=== PATIENT | female | born 1985 | race Hispanic/Latino ===

== ENCOUNTER 2021-08-25 13:13 | Emergency (ER) | payer OTHER, SELFPAY ==
[2021-08-25 13:20] VITALS: BP 153/102; PULSE 71; RESP 16; TEMP 36.8; O2SAT 100
[2021-08-25] MEDS: SODIUM CHLORIDE 0.9% IV 1,000 ML 999 ML (13:28)
[2021-08-25] MEDS: ONDANSETRON INJ 4 MG/2 ML VIAL (13:28)
--- NOTE | 2021-08-25 13:29 | ED.NAVMDI ---
HPI - Nausea/Vomiting/Diarrhea General Chief complaint: Nausea/Vomiting/Diarrhea Stated complaint: food poisioning??? Time Seen by Provider: 08/25/21 13:19 Source: patient Mode of arrival: ambulatory Limitations: no limitations History of Present Illness HPI Narrative: Patient is a 36-year-old complaining of nausea vomiting, nonbilious nonbloody, previously ingested food, accompanied by epigastric discomfort started today. Patient states that I ate fish and it didn't sit too well . Patient denies any chest pain, shortness of breath, diarrhea, fever or chills. Related Data Home Medications Medication Instructions Recorded Confirmed No Home Medications 08/25/21 08/25/21 Allergies Allergy/AdvReac Type Severity Reaction Status Date / Time No Known Allergies Allergy Verified 08/25/21 13:22 Review of Systems Review of Systems: All systems reviewed & are unremarkable except as noted in HPI and below Constitutional: Constitutional: Denies body ache(s), Denies chills, Denies excessive sweating, Denies fatigue, Denies fever(s), Denies headache(s), Denies lethargy, Denies malaise, Denies weakness and Denies weight loss Eyes: Eyes: Denies blurry vision, Denies change in vision and Denies loss of vision ENT: Denies dizziness, Denies ear discharge, Denies headache(s), Denies lip swelling, Denies epistaxis, Denies nasal congestion, Denies neck pain, Denies throat swelling and Denies tongue swelling Cardiovascular: Cardiovascular: Denies chest pain, Denies chest pain at rest, Denies chest pain with activity, Denies diaphoresis, Denies rapid heart rate, Denies edema, Denies irregular heart rhythm, Denies lightheadedness, Denies palpitations, Denies dyspnea and Denies dyspnea on exertion Respiratory: Respiratory: Denies chest congestion, Denies cough, Denies hemoptysis, Denies dyspnea and Denies dyspnea on exertion Gastrointestinal: Gastrointestinal: Denies abdominal pain, Denies melena, Denies hematochezia, Denies diarrhea and Denies hematemesis Musculoskeletal: Musculoskeletal: Denies abnormal gait, Denies deformity, Denies joint swelling, Denies limited range of motion, Denies neck pain and Denies numbness Neurologic: Denies Abnormal speech present, Denies abnormal gait, Denies confusion, Denies dizziness, Denies headache(s), Denies focal weakness, Denies loss of vision, Denies numbness, Denies Other visual disturbances, Denies Sensory deficit (Neuro) and Denies weakness Psychiatric: Psychiatric: Denies confusion, Denies depression, Denies auditory hallucinations, Denies homicidal ideation and Denies suicidal ideation Endocrine: Endocrine: Denies cold intolerance, Denies excessive sweating, Denies fatigue, Denies heat intolerance and Denies palpitations Hematologic/Lymphatic: Hematologic/Lymphatic: Denies easy bleeding and Denies easy bruising Allergic/Immunologic: Allergic/Immunologic: Denies lip swelling, Denies throat swelling and Denies tongue swelling PMFSH Comments Past medical history: None Family history: Hypertension Social history: Smoker, no EtOH or drug use Exam Const: General: cooperative, healthy appearing, comfortable, no acute distress, well developed, alert and awake; No confusion Orientation/consciousness: oriented to person, oriented to place, oriented to time, patient oriented x3 and No confusion Limitations: no limitations HENMT: Head: normal to inspection, normocephalic and atraumatic Ears: hearing grossly normal bilaterally, TM normal on the right and TM normal on the left General nose exam: Normal external nose present, Normal nares present and No nasal discharge present Face and sinus: normal facial exam Mouth: Yes Normal oral and palatal mucosa present, Yes lip normal, Yes tongue normal and Yes oropharynx normal Throat: posterior oropharynx normal, tonsils normal and uvula midline Eyes: General: appearance normal, both eyes and all related structures Pupils: Equal, round and reactive pupils present
[2021-08-25 13:45] LABS: Basophils Percent Auto 0.4 % (0.2-1.2); Eosinophils Absolute Auto 0.1 K/mm3 (0-0.3); Eosinophils Percent Auto 0.8 % (0-4.4); Hematocrit 46.5 % (37.0-47.0); Hemoglobin 15.4 g/dL (12.0-15.0); Immature Granulocyte Absolute 0.02 K/mm3 (0.00-0.031); Immature Granulocyte Percent A 0.3 % (0-0.5); Lymphocytes Absolute Auto 2.32 K/mm3 (0.9-3.2); Lymphocytes Percent Auto 31.3 % (18.3-44.2); Mean Corpuscular HGB Conc 33.1 g/dl (32-36); Mean Corpuscular Volume 96.7 fl (80-100); Monocytes Absolute Auto 0.5 K/mm3 (0.1-0.6); Monocytes Percent Auto 6.3 % (2.6-8.5); Neutrophils Absolute Auto 4.5 K/mm3 (1.3-6.7); Neutrophils Percent Auto 60.9 % (45.5-73.1); Platelet Count Result 371 k/mm3 (150-375); Red Blood Count 4.81 M/mm3 (4.2-5.4); Red Cell Distribution Width 11.9 % (11.5-14.5); White Blood Count 7.4 K/mm3 (4.5-10.0)
[2021-08-25] MEDS: PANTOPRAZOLE SODIUM IV 40 MG VIAL IV PUSH (13:48)
[2021-08-25 13:59] LABS: Alanine Aminotransferase 37 U/L (4-35); Albumin Level 4.4 g/dL (3.5-5.1); Alkaline Phosphatase 63 U/L (38-126); Anion Gap 10 mmol/L (8-16); Aspartate Amino Transferase 32 U/L (14-36); Bilirubin,Total 1.1 mg/dL (0.2-1.3); Blood Urea Nitrogen 12 mg/dL (7-17); Calcium 8.9 mg/dL (8.4-10.2); Carbon Dioxide 25 mmol/L (22-30); Chloride 106 mmol/L (98-107); Estimated CRCL calculation 87 ml/min; Estimated Glomerular Filt Rate > 60; Glucose 89 mg/dL (65-110); Potassium 3.7 mmol/L (3.4-5.0); Sodium 141 mmol/L (137-145)
[2021-08-25] MEDS: SODIUM CHLORIDE 0.9% IV 1,000 ML 999 ML IV CONT (14:29)
[2021-08-25] MEDS: PROMETHAZINE HCL 25 MG/ML AMPUL 12.5 MG IV PUSH (14:29)
[2021-08-25 15:25] VITALS: BP 142/84; PULSE 89; RESP 16; O2SAT 99
--- NOTE | 2021-08-25 15:26 | PC.NURSE ---
pt asked to leave, stated that she felt improved. pt asked for iv to be removed. provider made aware
--- NOTE | 2021-08-25 15:45 | PC.NURSE ---
pt left out via [facility], pt did have iv removed. pt did not want to wait any longer, stated that she peters to be at work by 1600. provider made aware
[2021-08-25 15:58] LABS: Lipase 64 U/L (23-300)
== END 2021-08-25 15:50 | disposition left against medical advice (07) ==
PROVIDERS: Emergency Provider Emergency Medicine
DX: R11.2 Nausea with vomiting, unspecified (principal)
CPT/HCPCS: 36415; 80053; 83690; 85025; 96361; 96374; 96375; 99284; C9113; J2405; J2550; J7030

== ENCOUNTER 2021-09-20 10:30 | Emergency (ER) | payer OTHER, SELFPAY ==
[2021-09-20 10:32] VITALS: BP 133/75; PULSE 66; RESP 14; TEMP 36.3; O2SAT 100
--- NOTE | 2021-09-20 11:23 | ED.NAVMDI ---
HPI - Nausea/Vomiting/Diarrhea General Chief complaint: Nausea/Vomiting/Diarrhea Stated complaint: vomiting Time Seen by Provider: 09/20/21 11:16 Source: patient and family Mode of arrival: ambulatory Limitations: no limitations History of Present Illness HPI Narrative: This is a 36-year-old female that presents to the emergency department for nausea and vomiting since this morning. Does report that she had drank alcohol last night. Reports a similar episode about a month ago for which she was seen here. Denies fever, abdominal pain, diarrhea, or dysuria. Related Data Home Medications Medication Instructions Recorded Confirmed No Home Medications 08/25/21 08/25/21 Allergies Allergy/AdvReac Type Severity Reaction Status Date / Time No Known Allergies Allergy Verified 09/20/21 11:13 Review of Systems Review of Systems: CONSTITUTIONAL: Denies fever GASTROINTESTINAL: Reports nausea, vomiting GENITOURINARY: Denies dysuria All systems reviewed & are unremarkable except as noted in HPI and below PMFSH Past Medical History Medical History (Updated 09/20/21 @ 15:10 by Sierra Florez PA-C) No active medical problems Social History Social History (Updated 09/20/21 @ 11:25 by Sierra Florez PA-C) Alcohol intake: current Substance use: never Exam Narrative: GENERAL: Well-nourished, actively vomiting HEAD: Normocephalic, atraumatic. EYES: EOMI. CHEST: Clear to auscultation. No respiratory distress. No wheezes rales or rhonchi HEART: Regular rate and rhythm. No murmur heard. Normal peripheral pulses. ABDOMEN: Soft, nontender, nondistended, normal active bowel sounds. EXTREMITIES: Normal range of motion. No edema. SKIN: Warm, dry, no rash. NEURO: No focal deficits. Alert and oriented x3. PSYCH: Normal mood and affect Course Vital Signs Vital signs: Vital Signs Temperature 97.3 F L 09/20/21 10:32 Pulse Rate 66 09/20/21 10:32 Respiratory Rate 14 09/20/21 10:32 Blood Pressure 133/75 09/20/21 10:32 Pulse Oximetry 100 09/20/21 10:32 Temperature 97.3 F L 09/20/21 10:32 Pulse Rate 72 09/20/21 13:24 Respiratory Rate 20 09/20/21 13:24 Blood Pressure 116/66 09/20/21 13:24 Pulse Oximetry 100 09/20/21 13:24 MDM - Nausea/Vomiting/Diarrhea MDM Narrative Medical decision making narrative: Patient presents to the emergency department for nausea and vomiting ongoing since this morning. She denies any abdominal pain. Her vitals are stable. She is afebrile and nontoxic-appearing. CBC is without leukocytosis. Does show hemoconcentration with hemoglobin of 15.9. Metabolic panel shows mild transaminitis. Lipase is normal. UA with red blood cells, no leukoesterase, nitrates or WBCs. Patient refused CT scan of the abdomen and pelvis. She was hydrated and given antiemetics with improvement. She left after being seen by myself and before any further evaluation or management Lab Data Attestation: I reviewed the patient's lab results. Result diagrams: 09/20/21 11:42 09/20/21 11:42 Labs: Lab Results 09/20/21 09/20/21 09/20/21 Range/Units 11:42 11:42 11:42 WBC 6.9 (4.5-10.0) K/mm3 RBC 4.91 (4.2-5.4) M/mm3 Hgb 15.9 H (12.0-15.0) g/dL Hct 46.4 (37.0-47.0) % MCV 94.5 (80-100) fl MCH 32.4 (26-34) pg MCHC 34.3 (32-36) g/dl RDW 11.9 (11.5-14.5) % Plt Count 368 (150-375) k/mm3 MPV 9.2 (7.4-10.4) fl Immature Gran % (Auto) 0.3 (0-0.5) % Neut % (Auto) 64.5 (45.5-73.1) % Lymph % (Auto) 27.6 (18.3-44.2) % [place] % (Auto) 6.7 (2.6-8.5) % Eos % (Auto) 0.6 (0-4.4) % Baso % (Auto) 0.3 (0.2-1.2) % Lymph # (Auto) 1.90 (0.9-3.2) K/mm3 [place] # (Auto) 0.5 (0.1-0.6) K/mm3 Eos # (Auto) 0.0 (0-0.3) K/mm3 Baso # (Auto) 0.0 (0.0-0.1) K/mm3 Abs Immat Gran (auto) 0.02 (0.00-0.031) K/mm3 Absolute Neuts (auto) 4.4 (1.3-6.7) K/mm3 Absolute Nucleated RBC 0.0 (0
[2021-09-20] MEDS: SODIUM CHLORIDE 0.9% IV 1,000 ML 999 ML IV CONT (11:35)
[2021-09-20] MEDS: FAMOTIDINE 20 MG/2 ML VIAL IV PUSH (11:35)
[2021-09-20] MEDS: PROMETHAZINE HCL 25 MG/ML AMPUL 12.5 MG IV PUSH (11:35)
--- NOTE | 2021-09-20 11:37 | PC.NURSE ---
pt refused orthostatic vs at this time
[2021-09-20 11:51] LABS: Basophils Percent Auto 0.3 % (0.2-1.2); Eosinophils Percent Auto 0.6 % (0-4.4); Hematocrit 46.4 % (37.0-47.0); Hemoglobin 15.9 g/dL (12.0-15.0); Immature Granulocyte Absolute 0.02 K/mm3 (0.00-0.031); Immature Granulocyte Percent A 0.3 % (0-0.5); Lymphocytes Percent Auto 27.6 % (18.3-44.2); Mean Corpuscular HGB Conc 34.3 g/dl (32-36); Mean Corpuscular Hemoglobin 32.4 pg (26-34); Mean Corpuscular Volume 94.5 fl (80-100); Mean Platelet Volume 9.2 fl (7.4-10.4); Monocytes Absolute Auto 0.5 K/mm3 (0.1-0.6); Monocytes Percent Auto 6.7 % (2.6-8.5); Neutrophils Absolute Auto 4.4 K/mm3 (1.3-6.7); Neutrophils Percent Auto 64.5 % (45.5-73.1); Platelet Count Result 368 k/mm3 (150-375); Red Blood Count 4.91 M/mm3 (4.2-5.4); Red Cell Distribution Width 11.9 % (11.5-14.5); White Blood Count 6.9 K/mm3 (4.5-10.0)
[2021-09-20 12:13] LABS: Alanine Aminotransferase 39 U/L (4-35); Albumin Level 4.5 g/dL (3.5-5.1); Alkaline Phosphatase 65 U/L (38-126); Anion Gap 8 mmol/L (8-16); Aspartate Amino Transferase 37 U/L (14-36); Bilirubin,Total 0.8 mg/dL (0.2-1.3); Blood Urea Nitrogen 12 mg/dL (7-17); Carbon Dioxide 24 mmol/L (22-30); Chloride 106 mmol/L (98-107); Estimated CRCL calculation 100 ml/min; Estimated Glomerular Filt Rate > 60; Ethanol 17 mg/dL (<10); Glucose 94 mg/dL (65-110); Lipase 109 U/L (23-300); Potassium 3.9 mmol/L (3.4-5.0); Sodium 138 mmol/L (137-145)
[2021-09-20] MEDS: PROCHLORPERAZINE EDISYLATE 10 MG/2 ML VIAL IV PUSH (13:23)
[2021-09-20] MEDS: diphenhydrAMINE HCl INJ 50 MG/ML VIAL 25 MG IV PUSH (13:23)
[2021-09-20 13:24] VITALS: BP 116/66; PULSE 72; RESP 20; O2SAT 100
--- NOTE | 2021-09-20 13:55 | PC.NURSE ---
pt refuses straight cath. pt encouraged to try to urinate. less nausea/emesis after 2nd round of meds.
[2021-09-20 14:38] LABS: Add Urine Microscopic? YES; Appearance Urine Cloudy (Clear); Bilirubin Urine Negative (Negative); Blood Urine 3+ (Negative); Color Urine Yellow (Yellow); Glucose Urine UA Negative (Negative); Ketones Urine Negative (Negative); Leukocyte Esterase Ur Negative LEU/UL (Negative); Mucus Urine Rare /lpf; Nitrate Urine Negative (Negative); Protein Urine 1+ mg/dL (Negative); RBC Urine >75 /hpf (0-2); Specific Grav Ur 1.027 (1.001-1.035); Squamous Epithelial Cell Urine Many /hpf (Few); Urobilinogen Urine Negative mg/dL (<2.0); WBC Urine 0-3 /hpf
--- NOTE | 2021-09-20 15:07 | PC.NURSE ---
pt walks by desk showing rn that she removed her iv cath herself. pt got drsg supplies out of room 22 drawer and applied a drsg. pt informed that provider has been notified that she wishes to be d/c home. pt and her visitor do not wish to wait to speak to provider. pt eloped out ed entrance at this time.
--- NOTE | 2021-09-20 15:07 | PC.NURSE ---
pt left ama. provider aware. iv d/c intact by pt. no n/v per pt
== END 2021-09-20 15:07 | disposition left against medical advice (07) ==
PROVIDERS: Physician Assistant; Emergency Provider Emergency Medicine
DX: R11.2 Nausea with vomiting, unspecified (principal)
CPT/HCPCS: 36415; 80053; 80307; 81001; 81025; 83690; 85025; 96361; 96374; 96375; 99284; J0780; J1200; J2550; J7030

== ENCOUNTER 2021-11-23 03:08 | Emergency (ER) | payer OTHER, SELFPAY ==
[2021-11-23 03:21] VITALS: BP 147/122; PULSE 92; RESP 22; TEMP 35.9; O2SAT 100
--- NOTE | 2021-11-23 03:27 | ED.NAVMDI ---
HPI - Nausea/Vomiting/Diarrhea General Chief complaint: Nausea/Vomiting/Diarrhea Stated complaint: n/v, covid negative yesterday Time Seen by Provider: 11/23/21 03:13 Source: RN notes reviewed History of Present Illness HPI Narrative: Patient presents emergency department from home for nausea and vomiting. History is per family the patient patient gone out drinking this evening for the past 3 hours she has been having numerous episodes of nausea vomiting as well as abdominal pain throughout the abdomen described as cramping and diffuse. Patient been feeling fine prior to this no fevers or chills chest pain or shortness of breath patient not taking medication at home for the symptoms Related Data Home Medications Medication Instructions Recorded Confirmed No Home Medications 08/25/21 08/25/21 Allergies Allergy/AdvReac Type Severity Reaction Status Date / Time No Known Allergies Allergy Verified 09/20/21 11:13 Review of Systems Review of Systems: Gen.: Denies fevers or chills ENT: Denies congestion Respiratory: Denies shortness of breath or cough CV: Denies chest pain or palpitations GI: See HPI denies burning, urgency, frequency or hematuria Musculoskeletal: Denies back pain or muscle pain Neuro: Denies numbness, tingling, weakness or focal weakness Skin: Denies rash Except as documented, all other systems reviewed and negative PMFSH Past Medical History Medical History No active medical problems Social History Social History Alcohol intake: current Substance use: never Exam Narrative: APPEARANCE: No acute distress, nontoxic, resting in bed HEENT: Normocephalic, atraumatic, OMM RESPIRATORY: No respiratory distress, clear to auscultation bilaterally with no rhonchi wheezing or rales CARDIOVASCULAR: RRR s murmur ABDOMINAL: Soft nondistended diffusely tender palpation no rebound or guarding MUSCULOSKELETAl: Moves all extremities. No clubbing, cyanosis or edema. NEURO: Awake and alert. Following commands, speech normal, no focal deficits SKIN:: Warm, dry. Normal Color PSYCHIATRIC: Normal affect/mood Course Course Emergency Course: Reviewed old records patient's been seen twice before for similar episodes following alcohol ingestion Awaiting UA and bedside from patient patient is up in room stating that she is ready to leave discussed with patient and complete evaluation she states that everything is fine she is feeling better and she wishes to leave at this time. Patient has chosen to refuse further care. Risks of an incomplete evaluation and treatment were discussed with the patient including potential for intra-abdominal infection or permanent disability were discussed with the patient seems to understand these risks but still desires to refuse further care. Patient recommended to follow up with her primary care physician in the next possible interval, specifically they?re told they can return to the ED at any time to resume care. AMA paperwork was filled out signed by patient Vital Signs Vital signs: Vital Signs Temperature 96.7 F L 11/23/21 03:21 Pulse Rate 92 11/23/21 03:21 Respiratory Rate 22 H 11/23/21 03:21 Blood Pressure 147/122 H 11/23/21 03:21 Pulse Oximetry 100 11/23/21 03:21 Temperature 96.7 F L 11/23/21 03:21 Pulse Rate 70 11/23/21 04:59 Respiratory Rate 16 11/23/21 04:59 Blood Pressure 111/69 11/23/21 04:59 Pulse Oximetry 100 11/23/21 04:59 MDM - Nausea/Vomiting/Diarrhea Lab Data Result diagrams: 11/23/21 04:38 11/23/21 04:38 Labs: Lab Results 11/23/21 11/23/21 Range/Units 04:38 04:38 WBC 7.5 (4.5-10.0) K/mm3 RBC 4.55 (4.2-5.4) M/mm3 Hgb 14.4 (12.0-15.0) g/dL Hct 42.1 (37.0-47.0) % MCV 92.5 (80-100) fl MCH 31.6 (26-34) pg MCHC 34.2 (32-36) g/dl RDW 11
[2021-11-23] MEDS: ONDANSETRON HCL ODT 4 MG TABLET PO (03:59)
[2021-11-23] MEDS: SODIUM CHLORIDE 0.9% IV 1,000 ML 999 ML IV CONT (04:18)
[2021-11-23] MEDS: FAMOTIDINE 20 MG/2 ML VIAL IV PUSH (04:18)
[2021-11-23] MEDS: KETOROLAC 30 MG/ML VIAL (*BKC) IV PUSH (04:18)
[2021-11-23 04:48] LABS: Basophils Percent Auto 0.4 % (0.2-1.2); Eosinophils Absolute Auto 0.1 K/mm3 (0-0.3); Eosinophils Percent Auto 1.1 % (0-4.4); Hematocrit 42.1 % (37.0-47.0); Hemoglobin 14.4 g/dL (12.0-15.0); Immature Granulocyte Absolute 0.02 K/mm3 (0.00-0.031); Immature Granulocyte Percent A 0.3 % (0-0.5); Lymphocytes Absolute Auto 2.42 K/mm3 (0.9-3.2); Lymphocytes Percent Auto 32.3 % (18.3-44.2); Mean Corpuscular HGB Conc 34.2 g/dl (32-36); Mean Corpuscular Hemoglobin 31.6 pg (26-34); Mean Corpuscular Volume 92.5 fl (80-100); Mean Platelet Volume 8.9 fl (7.4-10.4); Monocytes Absolute Auto 0.6 K/mm3 (0.1-0.6); Monocytes Percent Auto 7.5 % (2.6-8.5); Neutrophils Absolute Auto 4.4 K/mm3 (1.3-6.7); Neutrophils Percent Auto 58.4 % (45.5-73.1); Platelet Count Result 436 k/mm3 (150-375); Red Blood Count 4.55 M/mm3 (4.2-5.4); Red Cell Distribution Width 11.9 % (11.5-14.5); White Blood Count 7.5 K/mm3 (4.5-10.0)
[2021-11-23 04:59] VITALS: BP 111/69; PULSE 70; RESP 16; O2SAT 100
[2021-11-23 05:10] LABS: Alanine Aminotransferase 41 U/L (4-35); Alkaline Phosphatase 71 U/L (38-126); Anion Gap 11 mmol/L (8-16); Aspartate Amino Transferase 39 U/L (14-36); Bilirubin,Total 0.5 mg/dL (0.2-1.3); Blood Urea Nitrogen 8 mg/dL (7-17); Calcium 8.7 mg/dL (8.4-10.2); Carbon Dioxide 23 mmol/L (22-30); Chloride 108 mmol/L (98-107); Estimated Glomerular Filt Rate > 60; Glucose 94 mg/dL (65-110); Lipase 104 U/L (23-300); Potassium 3.3 mmol/L (3.4-5.0); Sodium 142 mmol/L (137-145)
--- NOTE | 2021-11-23 05:48 | PC.NURSE ---
artificial breeding technician went in to pt room to try to obtain a urine sample and the pt states that she is ready to leave. Pt informed of risks of leaving by EDP Dr. Colon and still wants to leave. IV removed by this RN. Pt signs AMA paperwork
== END 2021-11-23 05:50 | disposition left against medical advice (07) ==
PROVIDERS: Emergency Provider Emergency Medicine
DX: R11.2 Nausea with vomiting, unspecified (principal); R10.9 Unspecified abdominal pain
CPT/HCPCS: 36415; 80053; 83690; 85025; 96361; 96374; 96375; 99284; A9270; J1885; J7030

== ENCOUNTER 2022-06-28 17:49 | Emergency (ER) | payer OTHER, SELFPAY ==
[2022-06-28 18:00] VITALS: BP 131/76; PULSE 87; RESP 16; TEMP 36.7; O2SAT 99
--- NOTE | 2022-06-28 19:37 | ED.GENADULT ---
HPI - General Adult General Chief complaint: Upper Respiratory Infection Stated complaint: tonsil swelling Time Seen by Provider: 06/28/22 18:37 History of Present Illness HPI narrative: 36-year-old female presented the emergency department for evaluation of a sore throat that has been persistent for approximately last 6 hours. Patient states that she noticed a white exudate on her right tonsil and states that her right tonsil hurts worse than the left. Patient denies any cough or shortness of breath. Patient denies any suspected exposure to COVID. Related Data Allergies Allergy/AdvReac Type Severity Reaction Status Date / Time No Known Allergies Allergy Verified 06/28/22 18:12 Review of Systems Review of Systems: CONSTITUTIONAL: Denies fever, chills, or sweats. EYES: Denies visual changes, redness, or discharge. ENT: Sore throat CARDIOVASCULAR: Denies chest pain, palpitations, or edema. RESPIRATORY: Denies cough or dyspnea. GASTROINTESTINAL: Denies abdominal pain, nausea, vomiting, or diarrhea. GENITOURINARY: Denies dysuria or hematuria. SKIN: Denies rash or itching. MUSCULOSKELETAL: Denies back pain, joint pain, or myalgia. NEUROLOGIC: Denies headache, numbness, or weakness. PMFSH Past Medical History Medical History No active medical problems Social History Social History Alcohol intake: current Substance use: never Exam Narrative: APPEARANCE: Well appearing, no pain, no distress, well-nourished. HEAD: normocephalic, atraumatic. EYES: PERRLA/EOMI, conjunctivae clear. NOSE: Normal no drainage EARS:TMS clear with good light reflex. THROAT: Pharynx clear, swollen tonsils bilaterally NECK: Supple. No adenopathy, no masses. RESPIRATORY: Airway patent, respirations nonlabored. Clear to auscultation bilaterally, no rales, rhonchi, wheezing. CARDIOVASCULAR: Regular rate and rhythm without murmurs rubs or gallops. MUSCULOSKELETAL: Moves all extremities. Strength/ROM intact, No edema, No calf tenderness. NEURO: Alert. Cranial nerves II through XII intact. Grossly intact SKIN: Warm, dry. Normal Color Course Course Emergency Course: Patient was treated for tonsillitis. Patient was started on Augmentin in the emergency department. All question concerns were addressed. Patient was comfortable with the plan for discharge and close follow-up. Vital Signs Vital signs: Vital Signs Temperature 98.0 F 06/28/22 18:00 Pulse Rate 87 06/28/22 18:00 Respiratory Rate 16 06/28/22 18:00 Blood Pressure 131/76 06/28/22 18:00 Pulse Oximetry 99 06/28/22 18:00 Oxygen Delivery Room Air 06/28/22 18:00 Temperature 98.0 F 06/28/22 18:00 Pulse Rate 87 06/28/22 18:00 Respiratory Rate 16 06/28/22 18:00 Blood Pressure 131/76 06/28/22 18:00 Pulse Oximetry 99 06/28/22 18:00 Oxygen Delivery Room Air 06/28/22 18:10 Medical Decision Making Vital Signs Vital Signs: Vital Signs Temperature 98.0 F 06/28/22 18:00 Pulse Rate 87 06/28/22 18:00 Respiratory Rate 16 06/28/22 18:00 Blood Pressure 131/76 06/28/22 18:00 Pulse Oximetry 99 06/28/22 18:00 Oxygen Delivery Room Air 06/28/22 18:00 Temperature 98.0 F 06/28/22 18:00 Pulse Rate 87 06/28/22 18:00 Respiratory Rate 16 06/28/22 18:00 Blood Pressure 131/76 06/28/22 18:00 Pulse Oximetry 99 06/28/22 18:00 Oxygen Delivery Room Air 06/28/22 18:10 Lab Data Lab results reviewed: Yes I reviewed the patient's lab results. Labs: Strep Screen Positive Group A Strep *(Reference Range: Negative)* Discharge Plan Discharge Clinical Impression: Acute tonsillitis Patient Disposition: Home, Self-Care Condition: Stable Instructions: Antibiotic Form, Tonsillitis (ED) Additional Instructions: Antibiotic as directed until completed.
[2022-06-28] MEDS: AMOXICILLIN/CLAVULANATE K 875-125 MG TAB 1 TABLET PO (20:05)
== END 2022-06-28 20:08 | disposition home or self-care (01) ==
PROVIDERS: Emergency Provider Emergency Medicine
DX: J03.00 Acute streptococcal tonsillitis, unspecified (principal)
CPT/HCPCS: 87880; 99283; A9270

== ENCOUNTER 2022-07-11 16:54 | Emergency (ER) | payer OTHER, SELFPAY ==
--- NOTE | ~2022-07-11 | XR_ITS ---
EXAMINATION: XR knee LT 3V DATE: 07/11/2022 17:24 INDICATION: Left knee pain. TECHNIQUE: Anteroposterior, oblique and crosstable lateral views of the left knee were obtained COMPARISON: None. FINDINGS: Internal fixation of an intra-articular fracture of the proximal left tibia with residual linear luce ncy along an oblique sagittally oriented fracture plane extending from the lateral side of the interc ondylar eminence on the medial side of the lateral tibial plateau distally into the proximal diaphysi s. Fractures fixed with a couple interfragmentary screws, a short medial sided plate and screws and a longer lateral sided plate and screws. No instrumentation failure or lucency surrounding the screws to suggest loosening or infection. Alignment appears near-anatomic with approximately 2-3 mm residual lucent fracture gap at the articular side of the fracture plane. No other fractures identified. Smal l triangular ossicle at the lateral margin of the lateral compartment which could represent either a loose bone fragment, degenerative loose body or heterotopic ossicle related to an associated soft tis mamadou injury. Small left knee joint effusion without layering lipohemarthrosis. Joint spaces appear rel atively preserved on nonweightbearing imaging. IMPRESSION: 1. Internally fixed intra-articular fracture proximal left tibia which is in near-anatomic alignment. No acute osseous abnormality appreciated however evaluation is somewhat limited in the absence of a prior imaging to establish a postoperative baseline. 2. Small left knee joint effusion. Reviewed, dictated and finalized at location A. IMPRESSION: 1. Internally fixed intra-articular fracture proximal left tibia which is in ne ar-anatomic alignment. No acute osseous abnormality appreciated however evaluat ion is somewhat limited in the absence of a prior imaging to establish a postop erative baseline. 2. Small left knee joint effusion.
[2022-07-11 16:55] VITALS: BP 129/76; PULSE 81; RESP 20; TEMP 37.2; O2SAT 100
--- NOTE | 2022-07-11 19:10 | PC.NURSE ---
RN in to evaluate pt. Pt no longer in room. Pt not in restroom at this time. RN who this RN took over for states she is unsure where the pt could be at this time. Registration also unable to find pt at this time. Assumed pt left without being seen by provider.
== END 2022-07-11 19:10 | disposition left against medical advice (07) ==
LOC: ANHED 19:38
PROVIDERS: Emergency Provider Emergency Medicine
DX: M25.562 Pain in left knee (principal); S82.102D Unspecified fracture of upper end of left tibia, subsequent encounter for closed fracture with routine healing; X58.XXXD Exposure to other specified factors, subsequent encounter
CPT/HCPCS: 73562; 99199

== ENCOUNTER 2024-02-25 19:32 | Emergency (ER) | payer OTHER, SELFPAY ==
--- NOTE | ~2024-02-25 | XR_ITS ---
EXAMINATION: XR chest 2V DATE: 02/25/2024 21:28 INDICATION: Cough. Shortness of breath. TECHNIQUE: Frontal and lateral views of the chest were obtained. COMPARISON: None. FINDINGS: There is no pneumonia, pleural effusion, or pneumothorax. The heart size is normal. IMPRESSION: 1. No acute cardiopulmonary disease. Reviewed, dictated and finalized at location E.
[2024-02-25 19:36] VITALS: BP 134/93; PULSE 88; RESP 18; TEMP 36.1; O2SAT 99
[2024-02-25 20:26] LABS: Influenza A QL RT-PCR Negative (Negative); Influenza B QL RT-PCR Negative (Negative); RSV RNA, RT-PCR Negative (Negative); SARS-CoV-2 RNA PCR Negative (Negative)
[2024-02-25 20:59] VITALS: O2SAT 98
--- NOTE | 2024-02-25 21:25 | ED.URI ---
HPI - URI/Sore Throat General Chief Complaint: Upper Respiratory Infection Stated Complaint: cough Time Seen by Provider: 02/25/24 21:17 History of Present Illness HPI Narrative: Patient is a healthy transgender female to male here with a cough. Patient note symptoms began around 8 pm last night. He did have a sick contact over the weekend at a family . He notes associated congestion and diarrhea. Patient denies fever or chills. Cough is non productive. He describes an itching sensation in the back of his throat which seems to trigger his cough. He was prescribed an inhaler in the past which has not helped with his cough. Denies history of COPD or asthma, non smoker. Patient denies sore throat, notes his family member hugged him who had strep throat and is very concerned he could have strep throat. Related Data Allergies Allergy/AdvReac Type Severity Reaction Status Date / Time No Known Allergies Allergy Verified 02/25/24 19:33 Review of Systems Review of Systems: All systems reviewed & are unremarkable except as noted in HPI and below PMFSH Past Medical History Medical History No active medical problems Social History Social History Alcohol intake: current Substance use: never Exam Narrative: GENERAL: Well-appearing, well-nourished, and in no acute distress. HEAD: Normocephalic, atraumatic. EYES: PERRLA and EOMI. ENT: Nares clear. Mucous membranes moist. NECK: Supple. CHEST: Clear to auscultation. No wheeze. Coughing throughout exam. No respiratory distress. HEART: Regular rate and rhythm. Normal peripheral pulses. ABDOMEN: Soft, nontender, nondistended. EXTREMITIES: Normal range of motion. No edema. SKIN: Warm, dry, no rash. NEURO: No focal deficits. Alert and oriented x3. PSYCH: Normal mood and affect. Course Course Emergency Course: Chart review performed patient here for non productive cough since yesterday along with nasal congestion. COVID, influenza, RSV negative. Patient seen and evaluated non toxic appearing. Viral swab negative, CXR negative. Believe patient's symptoms are most likely due to viral illness. I repeatedly told the patient that I do not believe that they had strep throat, still requesting to be tested for strep pharyngitis. Will send swab. Strep is positive. I believe this is likely colonization and his symptoms are due to viral illness however given his exposure and his positive test, will start any antibiotics given patient's preoccupation with strep. The results of pertinent diagnostic studies and exam findings were discussed. The patient?s provisional diagnosis and plan of care were discussed with the patient and present family. The patient and/or present family expressed understanding of the diagnosis and plan. The nurse was instructed to provide written instructions and appropriate follow-up information. The patient understands their need and responsibility to obtain additional follow-up as instructed. The risks of medications administered and prescribed were discussed with the patient and family present. Vital Signs Vital signs: Vital Signs Temperature 97.0 F L 02/25/24 19:36 Pulse Rate 88 02/25/24 19:36 Respiratory Rate 18 02/25/24 19:36 Blood Pressure 134/93 H 02/25/24 19:36 Pulse Oximetry 99 02/25/24 19:36 Oxygen Delivery Room Air 02/25/24 19:36 Temperature 97.0 F L 02/25/24 19:36 Pulse Rate 88 02/25/24 19:36 Respiratory Rate 18 02/25/24 19:36 Blood Pressure 134/93 H 02/25/24 19:36 Pulse Oximetry 98 02/25/24 20:59 Oxygen Delivery Room Air 02/25/24 20:59 MDM - URI/Sore Throat Lab Data Labs: Lab Results 02/25/24 02/25/24 Range/Units 19:41 22:00 Influenza A (RT-PCR) Negative (Negative) Influenza B (RT-PCR) Negative (Negative) RSV (RT-PCR) Negative (Negative) SARS-CoV-2 RNA (
[2024-02-25 22:35] LABS: Strep Group A RT-PCR DETECTED (Negative)
[2024-02-25] MEDS: PENICILLIN V POTASSIUM 250 MG TABLET 500 MG PO (22:58)
[2024-02-25] MEDS: dexAMETHasone SOD PHOS INJ 10 MG/ML 1 ML VIAL BY MOUTH (22:59)
[2024-02-25 23:01] VITALS: BP 134/79; PULSE 84; RESP 19; O2SAT 99
== END 2024-02-25 23:02 | disposition home or self-care (01) ==
PROVIDERS: Emergency Medicine; Emergency Provider Student in an Organized Health Care Education/Training Program
DX: J02.0 Streptococcal pharyngitis (principal); Z20.822 Contact with and (suspected) exposure to COVID-19; F64.0 Transsexualism
CPT/HCPCS: 71046; 87637; 87651; 99283; A9270; J1100

== ENCOUNTER 2024-04-20 08:51 | Emergency (ER) | payer OTHER, SELFPAY ==
[2024-04-20 08:53] VITALS: BP 107/77; PULSE 73; RESP 18; TEMP 36.7; O2SAT 98
--- NOTE | 2024-04-20 08:55 | ED.ALLEREA ---
HPI - Allergic Reaction General Chief complaint: Allergic Reaction Stated complaint: allergic reaction Time Seen by Provider: 04/20/24 08:52 History of Present Illness HPI narrative: 38-year-old female presents the emergency room for evaluation rash that began last night. Patient states she is allergic to coconut oil, and used a new hair gel that had coconut oil in it. States in the abrupt onset of a pruritic rash to her scalp left side of her face. Denies any shortness of breath or difficulty breathing. denies sore throat or dysphagia. Related Data Allergies Allergy/AdvReac Type Severity Reaction Status Date / Time No Known Allergies Allergy Verified 04/20/24 08:56 Review of Systems Review of Systems: ROS unremarkable except for stated in HPI PMFSH Past Medical History Medical History No active medical problems Social History Social History Alcohol intake: current Substance use: never Exam Narrative: GENERAL: Well-appearing, well-nourished, no physical limitations, and in no acute distress. HEAD: Normocephalic, atraumatic. EYES: Conjunctivae normal, PERRLA and EOMI. CHEST: Clear to auscultation. No respiratory distress. No wheezes rales or rhonchi. HEART: Regular rate and rhythm. No murmur heard. Normal peripheral pulses. EXTREMITIES: Normal range of motion. No edema. No clubbing or cyanosis SKIN: urticaria noted to scalp and left Side of neck NEURO: No focal deficits. Alert and oriented x3. MAEW. CN's II-XI intact bilaterally, normal gait PSYCH: Cooperative. Normal mood and affect. Course Vital Signs Vital signs: Vital Signs Temperature 36.7 C 04/20/24 08:53 Pulse Rate 73 04/20/24 08:53 Respiratory Rate 18 04/20/24 08:53 Blood Pressure 107/77 04/20/24 08:53 Pulse Oximetry 98 04/20/24 08:53 Oxygen Delivery Room Air 04/20/24 08:53 Temperature 36.7 C 04/20/24 08:53 Pulse Rate 73 04/20/24 08:53 Respiratory Rate 18 04/20/24 08:53 Blood Pressure 107/77 04/20/24 08:53 Pulse Oximetry 98 04/20/24 08:56 Oxygen Delivery Room Air 04/20/24 08:56 Discharge Plan Discharge Clinical Impression: Allergic reaction Patient Disposition: Home, Self-Care Condition: Stable Instructions: Antibiotic Form, General Allergic Reaction (ED) Additional Instructions: who recommend taking a daily antihistamine such as Claritin or Amber. May supplement with Benadryl at night for the itching. Prescriptions: New prednisone 20 mg tablet 40 mg PO DAILY 5 Days Qty: 10 0RF No Action benzonatate 200 mg capsule 200 mg PO TID PRN (Reason: cough) Qty: 20 0RF penicillin V potassium 500 mg tablet 500 mg PO Q12H 10 Days Qty: 20 0RF amoxicillin-pot clavulanate 875-125 mg tablet 1 tablet PO Q12H Qty: 14 0RF Follow-up/Referrals: UNKNOWN,DOCTOR [Primary Care Provider] - Time of Disposition: 08:58
[2024-04-20 08:56] VITALS: O2SAT 98
[2024-04-20] MEDS: diphenhydrAMINE HCl CAP 25 MG CAPSULE PO (09:06)
[2024-04-20] MEDS: dexAMETHasone SOD PHOS INJ 10 MG/ML 1 ML VIAL IM (09:06)
== END 2024-04-20 09:30 | disposition home or self-care (01) ==
LOC: ANHED 09:06
PROVIDERS: Emergency Provider Nurse Practitioner Family
DX: R21 Rash and other nonspecific skin eruption (principal); T49.4X5A Adverse effect of keratolytics, keratoplastics, and other hair treatment drugs and preparations, initial encounter; Z91.018 Allergy to other foods
CPT/HCPCS: 96372; 99283; A9270; J1100

== ENCOUNTER 2024-06-16 08:40 | Emergency (ER) | payer OTHER, SELFPAY ==
--- NOTE | 2024-06-16 08:56 | ED.GENADULT ---
HPI - General Adult General Chief complaint: Nausea/Vomiting/Diarrhea Stated complaint: nausea/vomiting, drank too much Time Seen by Provider: 06/16/24 08:47 History of Present Illness HPI narrative: 38-year-old female presenting to emergency department for evaluation for persistent nausea vomiting. Patient's family states that they typically do not drink but they went out drinking last night and have had persistent nausea and vomiting. Patient denies any associated abdominal pain. Related Data Allergies Allergy/AdvReac Type Severity Reaction Status Date / Time No Known Allergies Allergy Verified 04/20/24 08:56 Review of Systems Review of Systems: All systems reviewed & are unremarkable except as noted in HPI and below PMFSH Past Medical History Medical History No active medical problems Social History Social History Alcohol intake: current Substance use: never Exam Narrative: APPEARANCE: Distressed secondary to nausea HEAD: normocephalic, atraumatic. EYES: PERRLA/EOMI, conjunctivae clear. NOSE: Normal no drainage EARS:TMS clear with good light reflex. THROAT: Pharynx clear, no exudate. NECK: Supple. No adenopathy, no masses. RESPIRATORY: Airway patent, respirations nonlabored. Clear to auscultation bilaterally, no rales, rhonchi, wheezing. CARDIOVASCULAR: Regular rate and rhythm without murmurs rubs or gallops. ABDOMINAL: Soft, nontender, nondistended, normal bowel sounds MUSCULOSKELETAL: Moves all extremities. Strength/ROM intact, No edema, No calf tenderness. NEURO: Alert. Cranial nerves II through XII intact. Grossly intact PSYCHIATRIC: Normal affect/mood. Course Vital Signs Vital signs: Vital Signs Temperature 98.2 F 06/16/24 08:57 Pulse Rate 74 06/16/24 08:57 Respiratory Rate 17 06/16/24 08:57 Blood Pressure 122/88 06/16/24 08:57 Pulse Oximetry 98 06/16/24 08:57 Oxygen Delivery Room Air 06/16/24 08:57 Temperature 98.2 F 06/16/24 08:57 Pulse Rate 74 06/16/24 08:57 Respiratory Rate 17 06/16/24 08:57 Blood Pressure 122/88 06/16/24 08:57 Pulse Oximetry 98 06/16/24 08:57 Oxygen Delivery Room Air 06/16/24 08:57 Medical Decision Making MDM Narrative Medical decision making narrative: 38-year-old female present to the emergency department for evaluation of persistent nausea and vomiting. Patient is afebrile with no leukocytosis and a stable hemoglobin of 14.9. Patient has no significant abnormalities on her CMP. Patient did feel improved with nausea and IV fluids. Is requesting discharge to home. Differential Diagnosis Differential Diagnosis: Nausea, vomiting, dehydration Vital Signs Vital Signs: Vital Signs Temperature 98.2 F 06/16/24 08:57 Pulse Rate 74 06/16/24 08:57 Respiratory Rate 17 06/16/24 08:57 Blood Pressure 122/88 06/16/24 08:57 Pulse Oximetry 98 06/16/24 08:57 Oxygen Delivery Room Air 06/16/24 08:57 Temperature 98.2 F 06/16/24 08:57 Pulse Rate 74 06/16/24 08:57 Respiratory Rate 17 06/16/24 08:57 Blood Pressure 122/88 06/16/24 08:57 Pulse Oximetry 98 06/16/24 08:57 Oxygen Delivery Room Air 06/16/24 08:57 Lab Data Lab results reviewed: Yes I reviewed the patient's lab results. 06/16/24 09:04 06/16/24 09:04 Labs: Lab Results 06/16/24 Range/Units 09:04 WBC 6.7 (4.5-10.0) K/mm3 RBC 4.66 (4.2-5.4) M/mm3 Hgb 14.9 (12.0-15.0) g/dL Hct 44.0 (37.0-47.0) % MCV 94.4 (80-100) fl MCH 32.0 (26-34) pg MCHC 33.9 (32-36) g/dl RDW 12.0 (11.5-14.5) % Plt Count 346 (150-375) k/mm3 MPV 9.0 (7.4-10.4) fl Immature Gran % (Auto) 0.3 (0-0.5) % Neut % (Auto) 64.3 (45.5-73.1) % Lymph % (Auto) 29.1 (18.3-44.2) % [place] % (Auto) 5.1 (2.6-8.5) % Eos % (Auto) 0.6 (0-4.4) % Baso % (Auto) 0.6 (0.2-1.2) % Lym
[2024-06-16 08:57] VITALS: BP 122/88; PULSE 74; RESP 17; TEMP 36.8; O2SAT 98
[2024-06-16 09:09] LABS: Basophils Percent Auto 0.6 % (0.2-1.2); Eosinophils Percent Auto 0.6 % (0-4.4); Hemoglobin 14.9 g/dL (12.0-15.0); Immature Granulocyte Absolute 0.02 K/mm3 (0.00-0.031); Immature Granulocyte Percent A 0.3 % (0-0.5); Lymphocytes Absolute Auto 1.94 K/mm3 (0.9-3.2); Lymphocytes Percent Auto 29.1 % (18.3-44.2); Mean Corpuscular HGB Conc 33.9 g/dl (32-36); Mean Corpuscular Volume 94.4 fl (80-100); Monocytes Absolute Auto 0.3 K/mm3 (0.1-0.6); Monocytes Percent Auto 5.1 % (2.6-8.5); Neutrophils Absolute Auto 4.3 K/mm3 (1.3-6.7); Neutrophils Percent Auto 64.3 % (45.5-73.1); Platelet Count Result 346 k/mm3 (150-375); Red Blood Count 4.66 M/mm3 (4.2-5.4); White Blood Count 6.7 K/mm3 (4.5-10.0)
[2024-06-16] MEDS: SODIUM CHLORIDE 0.9% IV 1,000 ML 999 ML IV CONT (09:11)
[2024-06-16] MEDS: PANTOPRAZOLE SODIUM IV 40 MG VIAL IV PUSH (09:11)
[2024-06-16] MEDS: ONDANSETRON INJ 4 MG/2 ML VIAL IV PUSH (09:12)
[2024-06-16 09:23] LABS: Alanine Aminotransferase 22 U/L (6-35); Alkaline Phosphatase 65 U/L (38-126); Anion Gap 11 mmol/L (4-12); Aspartate Amino Transferase 39 U/L (14-36); Bilirubin,Total 0.8 mg/dL (0.2-1.3); Blood Urea Nitrogen 9 mg/dL (7-17); Calcium 8.7 mg/dL (8.4-10.2); Carbon Dioxide 22 mmol/L (22-30); Chloride 106 mmol/L (98-107); Estimated CRCL calculation 98 ml/min; Estimated Glomerular Filt Rate > 60; Glucose 91 mg/dL (65-110); Potassium 4.1 mmol/L (3.4-5.0); Sodium 139 mmol/L (137-145)
== END 2024-06-16 10:00 | disposition home or self-care (01) ==
PROVIDERS: Emergency Provider Emergency Medicine
DX: R11.2 Nausea with vomiting, unspecified (principal); K29.20 Alcoholic gastritis without bleeding
CPT/HCPCS: 36415; 80053; 85025; 96361; 96374; 96375; 99284; J2405; J2470; J7030

== ENCOUNTER 2024-12-13 12:03 | Emergency (ER) | payer OTHER, SELFPAY ==
[2024-12-13 12:30] VITALS: BP 125/72; PULSE 73; RESP 18; TEMP 37.2; O2SAT 100
--- OUTSIDE RECORDS SUMMARY | 2024-12-13 13:09 | XMS_ITS | Clinical Summary ---
Author Organization Health Address [address] [place] [address] Care Team Providers Care Metal Melter Name Role Phone Enrique Love Primary Care Provider Sofía marrufo Allergies No known active allergies Medications No known medications Social History Tobacco Use Types Packs/Day Years Used Date Smoking Tobacco: Never Smokeless Tobacco: Never Alcohol Use Standard Drinks/Week Comments Not Currently 0 (1 standard drink = 0.6 oz pur e alcohol) PHQ-2 Answer Date Recorded Patient Health Questionnaire-2 Score 0 12/25/2020 [facility] - Occupational Stress Questionnaire Answer Date Recorded Do you feel stress - tense, restless, nervous, or anxious, or unable to sleep at night because your mind is troubled all the time - these days? Not at all 12/25/2020 Exercise Vital Sign Answer Date Recorde d On average, how many days pe r week do you engage in moderate to strenuous exercise (like a brisk walk)? 7 days 12/25/2020 On average, how many minutes do you engage in exercise at this level? 150+ min 12/25/2020 Comments Unknown Sex and Gender Information Value Date Recorded Sex Assigned at Not on file Legal Sex Female 10:49 AM LABORER RAGS Gender Identity Not on file Sexual Orientation Not on file Last Filed Vital Signs Vital Sign Reading Time Taken Comments Blood Pressure 133/85 12/25/2020 1:34 PM LABORER RAGS Pulse 74 12/25/2020 1:34 PM LABORER RAGS Temperature 36.5 C (97.7 F) 12/25/2020 1:34 PM LABORER RAGS Respiratory Rate 20 12/25/2020 1:34 PM LABORER RAGS Oxygen Saturation - - Inhaled Oxygen Concentration - - Weight 89.4 kg (197 lb) 12/25/2020 1:34 PM LABORER RAGS Height 165.1 cm (5' 5 ) 12/25/2020 1:34 PM LABORER RAGS Body Mass Index 32.78 12/25/2020 1:34 PM LABORER RAGS Plan of Treatment Health Maintenance Due Date Last Done Comments HIV Screening 1986 Hepatitis C Screening 1986 IPV Vaccines (2 of 3 - 4-dos e series) 08/08/1991 07/11/1991 Hepatitis B Vaccines (1 of 3 - 19+ 3-dose series) 2005 Pap Smear 2007 COVID-19 Vaccine (1 - 2023-2 5 season) 2024 Influenza Vaccine (#1) 2024 , 09/28/2015 DTaP,Tdap,and Td Vaccines (4 - Td or Tdap) 12/15/2030 12/15/2020, 07/11/2012, 07/11/1991 Zoster Vaccines (1 of 2) 2036 RSV Vaccine 60+ and Patients (1 - 1-dose 75+ series) 2061 HIB Vaccines Aged Out No longer eligi ble based on patient's age to complete this topic HPV Vaccines Aged Out No longer eligi ble based on patient's age to complete this topic Hepatitis A Vaccines Aged Out No long er eligible based on patient's age to complete this topic Meningococcal ACWY Vaccine Aged Out N o longer eligible based on patient's age to complete this topic Pneumococcal Vaccine: Pediatrics (0 to 5 Years) and At-Risk Patients (6 to 64 Years) Aged Out No longer eligible b ased on patient's age to complete this topic RSV Pediatric <20 Months Aged Out No longer eligible based on patient's age to complete this topic Insurance [employer] [employer] [place] Care Teams Metal Melter Relationship Specialty Start Date End Date Enrique Love, NEGIN [address] [place] [address] PCP - General 06/24/20
--- OUTSIDE RECORDS SUMMARY | 2024-12-13 13:09 | XMS_ITS | Encounter Summary ---
Author Organization [facility] Address [address] [address] Care Team Providers Care Lead Technical Writer Name Role Phone Pcp, Other Primary Care Provider Cecile Díaz Unavailable [phone] Encounter Details Date Type Department Care Team (Late st Contact Info) Description 11/02/2020 Amberly Historical EDM Scans [place] - Conversion Department - [facility] Medicine Provider, Amberly Historical Social History Tobacco Use Types Packs/Day Years Used Date Smoking Tobacco: Never Assessed Comments Unknown Sex and Gender Information Value Date Recorded Sex Assigned at Female 12/11/2024 3:31 PM TEACHER ASSOCIATE Legal Sex Female 7:02 PM TEACHER ASSOCIATE Gender Identity Male 12/11/2024 3:31 PM TEACHER ASSOCIATE Sexual Orientation Not on file documented as of this encounter Plan of Treatment Not on file documented as of this encounter Procedures Procedure Name Priority Date/Time Associated Diagnosis Comments RADIOLOGY SCAN 11/02/2020 LABS SCAN 11/02/2020 documented in this encounter Results * LABS SCAN (11/02/2020) Narrative 11/02/2020 Ordered by an unspecified provider. [facility] Provider SCANNED EXTERNAL RES ULT Final Result * RADIOLOGY SCAN (11/02/2020) Anatomical Region Laterality Modality Other Narrative 11/02/2020 Ordered by an unspecified provider. [facility] Provider SCANNED EXTERNAL RES ULT Final Result documented in this encounter Visit Diagnoses Not on filedocumented in this encounter Care Teams Lead Technical Writer Relationship Specialty Start Date End Date Pcp, Other Patient has a PCP, but uncertain who PCP - General 12/11/24 Cecile Pascual P.A. [address] [place] [address] Referring Provider Internal Medicine 12/11/24 documented as of this encounter
--- OUTSIDE RECORDS SUMMARY | 2024-12-13 13:09 | XMS_ITS | Encounter Summary ---
Author Organization [facility] Address [address] [place] [address] Care Team Providers Care Equipment Driver Name Role Phone Pcp, Other Primary Care Provider Unavailabl e Cecile Pascual Unavailable [phone] Encounter Details Date Type Department Care Team (Late st Contact Info) Description 12/01/2020 Amberly Historical EDM Scans [place] - Conversion Department - [facility] Medicine Provider, Amberly Historical Social History Tobacco Use Types Packs/Day Years Used Date Smoking Tobacco: Never Assessed Comments Unknown Sex and Gender Information Value Date Recorded Sex Assigned at Female 12/11/2024 3:31 PM ELASTIC ATTACHER CHAINSTITCH Legal Sex Female 7:02 PM ELASTIC ATTACHER CHAINSTITCH Gender Identity Male 12/11/2024 3:31 PM ELASTIC ATTACHER CHAINSTITCH Sexual Orientation Not on file documented as of this encounter Plan of Treatment Not on file documented as of this encounter Procedures Procedure Name Priority Date/Time Associated Diagnosis Comments LABS SCAN 12/01/2020 documented in this encounter Results * LABS SCAN (12/01/2020) Narrative 12/01/2020 Ordered by an unspecified provider. us Amberly Historical Provider SCANNED EXTERNAL RES ULT Final Result documented in this encounter Visit Diagnoses Not on filedocumented in this encounter Care Teams Equipment Driver Relationship Specialty Start Date End Date Pcp, Other Patient has a PCP, but uncertain who PCP - General 12/11/24 Cecile Pascual P.A. [address] [place] [address] Referring Provider Internal Medicine 12/11/24 documented as of this encounter
--- OUTSIDE RECORDS SUMMARY | 2024-12-13 13:09 | XMS_ITS | Encounter Summary ---
Author Organization [facility] Address [address] [place] [address] Care Team Providers Care Office Technologist Name Role Phone Pcp, Other Primary Care Provider Unavailabl e Cecile Pascual Unavailable [phone] Encounter Details Date Type Department Care Team (Late st Contact Info) Description 03/09/2022 Amberly Historical EDM Scans [place] - Conversion Department - [facility] Medicine ProviderAmberly Historical Social History Tobacco Use Types Packs/Day Years Used Date Smoking Tobacco: Never Assessed Comments Unknown Sex and Gender Information Value Date Recorded Sex Assigned at Female 12/11/2024 3:31 PM SENIOR PACKAGING ENGINEER Legal Sex Female 7:02 PM SENIOR PACKAGING ENGINEER Gender Identity Male 12/11/2024 3:31 PM SENIOR PACKAGING ENGINEER Sexual Orientation Not on file documented as of this encounter Plan of Treatment Not on file documented as of this encounter Visit Diagnoses Not on filedocumented in this encounter Care Teams Office Technologist Relationship Specialty Start Date End Date Pcp, Other Patient has a PCP, but uncertain who PCP - General 12/11/24 Cecile Pascual P.A. [address] [place] [address] Referring Provider Internal Medicine 12/11/24 documented as of this encounter
--- OUTSIDE RECORDS SUMMARY | 2024-12-13 13:09 | XMS_ITS | Encounter Summary ---
Author Organization [facility] Address [address] [place] [address] Care Team Providers Care Independent Film Maker Name Role Phone Pcp, Other Primary Care Provider Unavailabl e Cecile Pascual Unavailable [phone] Encounter Details Date Type Department Care Team (Late st Contact Info) Description 03/07/2022 Amberly Historical EDM Scans [place] - Conversion Department - [facility] Medicine ProviderAmberly Historical Social History Tobacco Use Types Packs/Day Years Used Date Smoking Tobacco: Never Assessed Comments Unknown Sex and Gender Information Value Date Recorded Sex Assigned at Female 12/11/2024 3:31 PM SHEETMETAL TRADES WORKER Legal Sex Female 7:02 PM SHEETMETAL TRADES WORKER Gender Identity Male 12/11/2024 3:31 PM SHEETMETAL TRADES WORKER Sexual Orientation Not on file documented as of this encounter Plan of Treatment Not on file documented as of this encounter Visit Diagnoses Not on filedocumented in this encounter Care Teams Independent Film Maker Relationship Specialty Start Date End Date Pcp, Other Patient has a PCP, but uncertain who PCP - General 12/11/24 Cecile Pascual P.A. [address] [place] [address] Referring Provider Internal Medicine 12/11/24 documented as of this encounter
--- OUTSIDE RECORDS SUMMARY | 2024-12-13 13:09 | XMS_ITS | Encounter Summary ---
Author Organization [facility] Address [address] [place] [address] Care Team Providers Care Date Pitter Name Role Phone Pcp, Other Primary Care Provider Unavailabl e Cecile Pascual Unavailable Encounter Details Date Type Department Care Team (Late st Contact Info) Description 12/15/2020 Amberly Historical EDM Scans [place] - Conversion Department - [facility] Medicine Provider, Amberly Historical Social History Tobacco Use Types Packs/Day Years Used Date Smoking Tobacco: Never Assessed Comments Unknown Sex and Gender Information Value Date Recorded Sex Assigned at Female 12/11/2024 3:31 PM STRATEGIC CONSULTANT Legal Sex Female 7:02 PM STRATEGIC CONSULTANT Gender Identity Male 12/11/2024 3:31 PM STRATEGIC CONSULTANT Sexual Orientation Not on file documented as of this encounter Plan of Treatment Not on file documented as of this encounter Procedures Procedure Name Priority Date/Time Associated Diagnosis Comments LABS SCAN 12/15/2020 documented in this encounter Results * LABS SCAN (12/15/2020) Narrative 12/15/2020 Ordered by an unspecified provider. us Amberly Historical Provider SCANNED EXTERNAL RES ULT Final Result documented in this encounter Visit Diagnoses Not on filedocumented in this encounter Care Teams Date Pitter Relationship Specialty Start Date End Date Pcp, Other Patient has a PCP, but uncertain who PCP - General 12/11/24 Cecile Pascual P.A. [address] [place] [address] Referring Provider Internal Medicine 12/11/24 documented as of this encounter
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
--- OUTSIDE RECORDS SUMMARY | 2024-12-13 13:09 | XMS_ITS | Encounter Summary ---
Author Organization [facility] Address [address] [place] [address] Care Team Providers Care Tying In Machine Operator Name Role Phone Pcp, Other Primary Care Provider Unavailabl e Cecile Pascual Unavailable [phone] Encounter Details Date Type Department Care Team (Late st Contact Info) Description 03/07/2022 Amberly Historical EDM Scans [place] - Conversion Department - [facility] Medicine ProviderAmberly Historical Social History Tobacco Use Types Packs/Day Years Used Date Smoking Tobacco: Never Assessed Comments Unknown Sex and Gender Information Value Date Recorded Sex Assigned at Female 12/11/2024 3:31 PM RED MUD THICKENER OPERATOR Legal Sex Female 7:02 PM RED MUD THICKENER OPERATOR Gender Identity Male 12/11/2024 3:31 PM RED MUD THICKENER OPERATOR Sexual Orientation Not on file documented as of this encounter Plan of Treatment Not on file documented as of this encounter Visit Diagnoses Not on filedocumented in this encounter Care Teams Tying In Machine Operator Relationship Specialty Start Date End Date Pcp, Other Patient has a PCP, but uncertain who PCP - General 12/11/24 Cecile Pascual P.A. [address] [place] [address] Referring Provider Internal Medicine 12/11/24 documented as of this encounter
--- OUTSIDE RECORDS SUMMARY | 2024-12-13 13:09 | XMS_ITS | Encounter Summary ---
Author Organization [facility] Address [address] [place] [address] Care Team Providers Care Gaming Floor Supervisor Name Role Phone Pcp, Other Primary Care Provider Unavailabl e Cecile Pascual Unavailable [phone] Encounter Details Date Type Department Care Team (Late st Contact Info) Description 12/01/2020 Amberly Historical EDM Scans [place] - Conversion Department - [facility] Medicine ProviderAmberly Historical Social History Tobacco Use Types Packs/Day Years Used Date Smoking Tobacco: Never Assessed Comments Unknown Sex and Gender Information Value Date Recorded Sex Assigned at Female 12/11/2024 3:31 PM BOX CLOSING MACHINE OPERATOR Legal Sex Female 7:02 PM BOX CLOSING MACHINE OPERATOR Gender Identity Male 12/11/2024 3:31 PM BOX CLOSING MACHINE OPERATOR Sexual Orientation Not on file documented as of this encounter Plan of Treatment Not on file documented as of this encounter Visit Diagnoses Not on filedocumented in this encounter Care Teams Gaming Floor Supervisor Relationship Specialty Start Date End Date Pcp, Other Patient has a PCP, but uncertain who PCP - General 12/11/24 Cecile Pascual P.A. [address] [place] [address] Referring Provider Internal Medicine 12/11/24 documented as of this encounter
--- OUTSIDE RECORDS SUMMARY | 2024-12-13 13:09 | XMS_ITS | Encounter Summary ---
Author Organization [facility] Address [address] [place] [address] Care Team Providers Care Housekeeping Laundry Worker Name Role Phone Pcp, Other Primary Care Provider Unavailabl e Cecile Pascual Unavailable [phone] Encounter Details Date Type Department Care Team (Late st Contact Info) Description 03/09/2022 [place] Historical EDM Scans [place] - Conversion Department - [facility] Medicine ProviderAmberly Historical Social History Tobacco Use Types Packs/Day Years Used Date Smoking Tobacco: Never Assessed Comments Unknown Sex and Gender Information Value Date Recorded Sex Assigned at Female 12/11/2024 3:31 PM MATERIAL FLOW ENGINEER Legal Sex Female 7:02 PM MATERIAL FLOW ENGINEER Gender Identity Male 12/11/2024 3:31 PM MATERIAL FLOW ENGINEER Sexual Orientation Not on file documented as of this encounter Plan of Treatment Not on file documented as of this encounter Visit Diagnoses Not on filedocumented in this encounter Care Teams Housekeeping Laundry Worker Relationship Specialty Start Date End Date Pcp, Other Patient has a PCP, but uncertain who PCP - General 12/11/24 Cecile Pascual P.A. [address] [place] [address] Referring Provider Internal Medicine 12/11/24 documented as of this encounter
--- OUTSIDE RECORDS SUMMARY | 2024-12-13 13:09 | XMS_ITS | Encounter Summary ---
Author Organization [facility] Address [address] [place] [address] Care Team Providers Care Hotel Assistant Manager Name Role Phone Pcp, Other Primary Care Provider Unavailabl e Cecile Pascual Unavailable [phone] Encounter Details Date Type Department Care Team (Late st Contact Info) Description 12/15/2020 [place] Historical EDM Scans [place] - Conversion Department - [facility] Medicine ProviderAmberly Historical Social History Tobacco Use Types Packs/Day Years Used Date Smoking Tobacco: Never Assessed Comments Unknown Sex and Gender Information Value Date Recorded Sex Assigned at Female 12/11/2024 3:31 PM EVENT OPERATIONS MANAGER Legal Sex Female 7:02 PM EVENT OPERATIONS MANAGER Gender Identity Male 12/11/2024 3:31 PM EVENT OPERATIONS MANAGER Sexual Orientation Not on file documented as of this encounter Plan of Treatment Not on file documented as of this encounter Visit Diagnoses Not on filedocumented in this encounter Care Teams Hotel Assistant Manager Relationship Specialty Start Date End Date Pcp, Other Patient has a PCP, but uncertain who PCP - General 12/11/24 Cecile Pascual P.A. [address] [place] [address] Referring Provider Internal Medicine 12/11/24 documented as of this encounter
--- OUTSIDE RECORDS SUMMARY | 2024-12-13 13:09 | XMS_ITS | Encounter Summary ---
Author Organization [facility] Address [address] [place] [address] Care Team Providers Care Cloth Feeder Name Role Phone Pcp, Other Primary Care Provider Unavailabl e Cecile Pascual Unavailable [phone] Encounter Details Date Type Department Care Team (Late st Contact Info) Description 12/01/2020 [place] Historical EDM Scans [place] - Conversion Department - [facility] Medicine ProviderAmberly Historical Social History Tobacco Use Types Packs/Day Years Used Date Smoking Tobacco: Never Assessed Comments Unknown Sex and Gender Information Value Date Recorded Sex Assigned at Female 12/11/2024 3:31 PM COPPER FLOTATION OPERATOR Legal Sex Female 7:02 PM COPPER FLOTATION OPERATOR Gender Identity Male 12/11/2024 3:31 PM COPPER FLOTATION OPERATOR Sexual Orientation Not on file documented as of this encounter Plan of Treatment Not on file documented as of this encounter Visit Diagnoses Not on filedocumented in this encounter Care Teams Cloth Feeder Relationship Specialty Start Date End Date Pcp, Other Patient has a PCP, but uncertain who PCP - General 12/11/24 Cecile Pascual P.A. [address] [place] [address] Referring Provider Internal Medicine 12/11/24 documented as of this encounter
--- OUTSIDE RECORDS SUMMARY | 2024-12-13 13:09 | XMS_ITS | Referral Summary ---
Author Organization [facility] Address [address] [place] [address] Care Team Providers Care Radio Survey Worker Name Role Phone Celio Cao MD Primary Care Provider [phone] Source Comments You are receiving this document as you are listed as the PCP, follow-upprovider, or the patient hasbeen referred to you for consultation. This is incompliance with [facility] Transitions of Care Requirement. Note: Specific treatmentrecords and notes about services for mental health, developmental disabilities,alcoholism, drug dependence, or substance abuse, you will need to contact theMedical Records Department at [phone] and complete a separate Release ofAuthorization form. They are also available to answer other questions.[facility] Allergies Active Allergy Reactions Criticality Noted Date [...] 81.6 kg (180 lb) 12/17/2023 1:42 PM LAPPING MACHINE SET UP OPERATOR Height 162.6 cm (5' 4 ) 12/17/2023 1:42 PM LAPPING MACHINE SET UP OPERATOR Body Mass Index 30.9 12/17/2023 1:42 PM LAPPING MACHINE SET UP OPERATOR Plan of Treatment Not on file Care Teams Radio Survey Worker Relationship Specialty Start Date End Date Celio Cao MD [address] [facility] [address] [place] [address] PCP - General 11/11/23
--- OUTSIDE RECORDS SUMMARY | 2024-12-13 13:09 | XMS_ITS | Encounter Summary ---
Author Organization [facility] Address [address] [place] [address] Care Team Providers Care Internal Review And Audit Compliance Name Role Phone Pcp, Other Primary Care Provider Unavailabl e Cecile Pascual Unavailable [phone] Encounter Details Date Type Department Care Team (Late st Contact Info) Description 12/15/2020 [place] Historical EDM Scans [place] - Conversion Department - [facility] Medicine ProviderAmberly Historical Social History Tobacco Use Types Packs/Day Years Used Date Smoking Tobacco: Never Assessed Comments Unknown Sex and Gender Information Value Date Recorded Sex Assigned at Female 12/11/2024 3:31 PM FISH FARM MANAGER Legal Sex Female 7:02 PM FISH FARM MANAGER Gender Identity Male 12/11/2024 3:31 PM FISH FARM MANAGER Sexual Orientation Not on file documented as of this encounter Plan of Treatment Not on file documented as of this encounter Visit Diagnoses Not on filedocumented in this encounter Care Teams Internal Review And Audit Compliance Relationship Specialty Start Date End Date Pcp, Other Patient has a PCP, but uncertain who PCP - General 12/11/24 Cecile Pascual P.A. [address] [place] [address] Referring Provider Internal Medicine 12/11/24 documented as of this encounter
--- OUTSIDE RECORDS SUMMARY | 2024-12-13 13:10 | XMS_ITS | Encounter Summary ---
Author Organization [facility] Address [address] [place] [address] Care Team Providers Care Custodial Manager Name Role Phone Pcp, Other Primary Care Provider Unavailabl e Cecile Pascual Unavailable Encounter Details Date Type Department Care Team (Late st Contact Info) Description 04/22/2022 [place] Historical EDM Scans [place] - Conversion Department - [facility] Medicine ProviderAmberly Historical Social History Tobacco Use Types Packs/Day Years Used Date Smoking Tobacco: Never Assessed Comments Unknown Sex and Gender Information Value Date Recorded Sex Assigned at Female 12/11/2024 3:31 PM AMMONIUM NITRATE CRYSTALLIZER Legal Sex Female 7:02 PM AMMONIUM NITRATE CRYSTALLIZER Gender Identity Male 12/11/2024 3:31 PM AMMONIUM NITRATE CRYSTALLIZER Sexual Orientation Not on file documented as of this encounter Plan of Treatment Not on file documented as of this encounter Visit Diagnoses Not on filedocumented in this encounter Care Teams Custodial Manager Relationship Specialty Start Date End Date Pcp, Other Patient has a PCP, but uncertain who PCP - General 12/11/24 Cecile Pascual P.A. [address] [place] [address] Referring Provider Internal Medicine 12/11/24 documented as of this encounter
--- OUTSIDE RECORDS SUMMARY | 2024-12-13 13:10 | XMS_ITS | Encounter Summary ---
Author Organization [facility] Address [address] [place] [address] Care Team Providers Care Laser Technician Name Role Phone Pcp, Other Primary Care Provider Unavailabl e Cecile Pascual Unavailable [phone] Encounter Details Date Type Department Care Team (Late st Contact Info) Description 06/14/2020 [place] Historical EDM Scans [place] - Conversion Department - [facility] Medicine ProviderAmberly Historical Social History Tobacco Use Types Packs/Day Years Used Date Smoking Tobacco: Never Assessed Comments Unknown Sex and Gender Information Value Date Recorded Sex Assigned at Female 12/11/2024 3:31 PM PIPE SMOKING MACHINE OPERATOR Legal Sex Female 7:02 PM PIPE SMOKING MACHINE OPERATOR Gender Identity Male 12/11/2024 3:31 PM PIPE SMOKING MACHINE OPERATOR Sexual Orientation Not on file documented as of this encounter Plan of Treatment Not on file documented as of this encounter Visit Diagnoses Not on filedocumented in this encounter Care Teams Laser Technician Relationship Specialty Start Date End Date Pcp, Other Patient has a PCP, but uncertain who PCP - General 12/11/24 Cecile Pascual P.A. [address] [place] [address] Referring Provider Internal Medicine 12/11/24 documented as of this encounter
--- OUTSIDE RECORDS SUMMARY | 2024-12-13 13:10 | XMS_ITS | Encounter Summary ---
Author Organization [facility] Address [address] [place] [address] Care Team Providers Care Real Estate Teacher Name Role Phone Pcp, Other Primary Care Provider Unavailabl e Cecile Pascual Unavailable [phone] Encounter Details Date Type Department Care Team (Late st Contact Info) Description 03/08/2022 [place] Historical EDM Scans [place] - Conversion Department - [facility] Medicine ProviderAmberly Historical Social History Tobacco Use Types Packs/Day Years Used Date Smoking Tobacco: Never Assessed Comments Unknown Sex and Gender Information Value Date Recorded Sex Assigned at Female 12/11/2024 3:31 PM ORE DRESSING ENGINEER Legal Sex Female 7:02 PM ORE DRESSING ENGINEER Gender Identity Male 12/11/2024 3:31 PM ORE DRESSING ENGINEER Sexual Orientation Not on file documented as of this encounter Plan of Treatment Not on file documented as of this encounter Visit Diagnoses Not on filedocumented in this encounter Care Teams Real Estate Teacher Relationship Specialty Start Date End Date Pcp, Other Patient has a PCP, but uncertain who PCP - General 12/11/24 Cecile Pascual P.A. [address] [place] [address] Referring Provider Internal Medicine 12/11/24 documented as of this encounter
--- OUTSIDE RECORDS SUMMARY | 2024-12-13 13:10 | XMS_ITS | Encounter Summary ---
Author Organization [facility] Address [address] [place] [address] Care Team Providers Care Administrative Support Coordinator Name Role Phone Pcp, Other Primary Care Provider Unavailabl e Cecile Pascual Unavailable [phone] Encounter Details Date Type Department Care Team (Late st Contact Info) Description 07/03/2020 [place] Historical EDM Scans [place] - Conversion Department - [facility] Medicine Provider, Amberly Historical Social History Tobacco Use Types Packs/Day Years Used Date Smoking Tobacco: Never Assessed Comments Unknown Sex and Gender Information Value Date Recorded Sex Assigned at Female 12/11/2024 3:31 PM MIXING MACHINE TENDER Legal Sex Female 7:02 PM MIXING MACHINE TENDER Gender Identity Male 12/11/2024 3:31 PM MIXING MACHINE TENDER Sexual Orientation Not on file documented as of this encounter Plan of Treatment Not on file documented as of this encounter Procedures Procedure Name Priority Date/Time Associated Diagnosis Comments LABS SCAN 07/03/2020 documented in this encounter Results * LABS SCAN (07/03/2020) Narrative 07/03/2020 Ordered by an unspecified provider. us Amber[place] Historical Provider SCANNED EXTERNAL RES ULT Final Result documented in this encounter Visit Diagnoses Not on filedocumented in this encounter Care Teams Administrative Support Coordinator Relationship Specialty Start Date End Date Pcp, Other Patient has a PCP, but uncertain who PCP - General 12/11/24 Cecile Pascual P.A. [address] [place] [address] Referring Provider Internal Medicine 12/11/24 documented as of this encounter
--- OUTSIDE RECORDS SUMMARY | 2024-12-13 13:10 | XMS_ITS | Clinical Summary ---
Author Organization [facility] Address [address] [place] [address] Phone Care Team Providers Care Elementary School Tutor Name Role Phone No, Pcp MD Primary Care Provider Unavailabl e Allergies No known active allergies Medications ondansetron (ZOFRAN ODT) 4 mg disintegrating tablet Take 1 Tab by mouth every 8 (eight) hours as needed for Nausea 6 Tab 7 Active dicyclomine (BENTYL) 20 mg tablet Take 1 Tab by mouth every 6 (six) hours 40 Tab 7 Active Immunizations Immunization Administration Dates Next Due Tdap 07/11/2012 Social History Tobacco Use Types Packs/Day Years Used Date Smoking Tobacco: Former Cigarettes Smokeless Tobacco: Never Tobacco Cessation:Ready to Q uit: No Alcohol Use Standard Drinks/Week Comments Yes 0 (1 standard drink = 0.6 oz pur e alcohol) Comments Unknown Sex and Gender Information Value Date Recorded Sex Assigned at Not on file Legal Sex Female 10:17 PM EST Gender Identity Not on file Sexual Orientation Not on file Last Filed Vital Signs Vital Sign Reading Time Taken Comments Blood Pressure 145/87 02/11/2020 7:17 AM CDT Pulse 84 02/11/2020 7:17 AM CDT Temperature 36.8 C (98.3 F) 02/11/2020 7:17 AM CDT Respiratory Rate 18 02/11/2020 7:17 AM CDT Oxygen Saturation 100% 02/11/2020 7:17 AM CDT Inhaled Oxygen Concentration - - Weight 86.2 kg (190 lb) 08/17/2017 9:34 AM CDT Height 162.6 cm (5' 4 ) 08/17/2017 9:34 AM CDT Body Mass Index 32.61 08/17/2017 9:34 AM CDT Plan of Treatment Not on file Insurance [employer] [employer] [facility] [place] [place] [address] [place] [id number] Care Teams Elementary School Tutor Relationship Specialty Start Date End Date No, PcpMD PCP - General 10/31/12
--- OUTSIDE RECORDS SUMMARY | 2024-12-13 13:10 | XMS_ITS | Encounter Summary ---
Author Organization [facility] Address [address] [address] Care Team Providers Care Seo Executive Name Role Phone Pcp, Other Primary Care Provider Cecile Díaz Unavailable [phone] Encounter Details Date Type Department Care Team (Late st Contact Info) Description 01/14/2018 [place] Historical EDM Scans [place] - Conversion Department - [facility] Medicine Provider, Amberly Mena Social History Tobacco Use Types Packs/Day Years Used Date Smoking Tobacco: Never Assessed Comments Unknown Sex and Gender Information Value Date Recorded Sex Assigned at Female 12/11/2024 3:31 PM AIRPORT ENGINEER Legal Sex Female 7:02 PM AIRPORT ENGINEER Gender Identity Male 12/11/2024 3:31 PM AIRPORT ENGINEER Sexual Orientation Not on file documented as of this encounter Plan of Treatment Not on file documented as of this encounter Procedures Procedure Name Priority Date/Time Associated Diagnosis Comments RADIOLOGY SCAN 01/14/2018 LABS SCAN 01/14/2018 documented in this encounter Results * LABS SCAN (01/14/2018) Narrative 01/14/2018 Ordered by an unspecified provider. [place] Historical Provider SCANNED EXTERNAL RES ULT Final Result * RADIOLOGY SCAN (01/14/2018) Anatomical Region Laterality Modality Other Narrative 01/14/2018 Ordered by an unspecified provider. [place] Historical Provider SCANNED EXTERNAL RES ULT Final Result documented in this encounter Visit Diagnoses Not on filedocumented in this encounter Care Teams Seo Executive Relationship Specialty Start Date End Date Pcp, Other Patient has a PCP, but uncertain who PCP - General 12/11/24 Cecile Pascual P.A. [address] [place] [address] Referring Provider Internal Medicine 12/11/24 documented as of this encounter
--- OUTSIDE RECORDS SUMMARY | 2024-12-13 13:10 | XMS_ITS | Encounter Summary ---
Author Organization [facility] Address [address] [place] [address] Care Team Providers Care 3D Designer Name Role Phone Pcp, Other Primary Care Provider Unavailabl e Cecile Pascual Unavailable [phone] Encounter Details Date Type Department Care Team (Late st Contact Info) Description 10/30/2018 [place] Historical EDM Scans [place] - Conversion Department - [facility] Medicine ProviderAmberly Historical Social History Tobacco Use Types Packs/Day Years Used Date Smoking Tobacco: Never Assessed Comments Unknown Sex and Gender Information Value Date Recorded Sex Assigned at Female 12/11/2024 3:31 PM SCOURING PADS SUPERVISOR Legal Sex Female 7:02 PM SCOURING PADS SUPERVISOR Gender Identity Male 12/11/2024 3:31 PM SCOURING PADS SUPERVISOR Sexual Orientation Not on file documented as of this encounter Plan of Treatment Not on file documented as of this encounter Visit Diagnoses Not on filedocumented in this encounter Care Teams 3D Designer Relationship Specialty Start Date End Date Pcp, Other Patient has a PCP, but uncertain who PCP - General 12/11/24 Cecile Pascual P.A. [address] [place] [address] Referring Provider Internal Medicine 12/11/24 documented as of this encounter
--- OUTSIDE RECORDS SUMMARY | 2024-12-13 13:10 | XMS_ITS | Encounter Summary ---
Author Organization [facility] Address [address] [place] [address] Care Team Providers Care Tax Compliance Representative Name Role Phone Pcp, Other Primary Care Provider Unavailabl e Cecile Pascual Unavailable [phone] Encounter Details Date Type Department Care Team (Late st Contact Info) Description 03/09/2022 [place] Historical EDM Scans [place] - Conversion Department - [facility] Medicine ProviderAmberly Historical Social History Tobacco Use Types Packs/Day Years Used Date Smoking Tobacco: Never Assessed Comments Unknown Sex and Gender Information Value Date Recorded Sex Assigned at Female 12/11/2024 3:31 PM SENIOR ACCOUNT EXECUTIVE Legal Sex Female 7:02 PM SENIOR ACCOUNT EXECUTIVE Gender Identity Male 12/11/2024 3:31 PM SENIOR ACCOUNT EXECUTIVE Sexual Orientation Not on file documented as of this encounter Plan of Treatment Not on file documented as of this encounter Visit Diagnoses Not on filedocumented in this encounter Care Teams Tax Compliance Representative Relationship Specialty Start Date End Date Pcp, Other Patient has a PCP, but uncertain who PCP - General 12/11/24 Cecile Pascual P.A. [address] [place] [address] Referring Provider Internal Medicine 12/11/24 documented as of this encounter
--- OUTSIDE RECORDS SUMMARY | 2024-12-13 13:10 | XMS_ITS | Encounter Summary ---
Author Organization [facility] Address [address] [address] Care Team Providers Care Gaming Department Head Name Role Phone Pcp, Other Primary Care Provider Cecile Díaz Unavailable Encounter Details Date Type Department Care Team (Late st Contact Info) Description 09/11/2017 [place] Historical EDM Scans [place] - Conversion Department - [facility] Medicine Provider, Amberly Mena Social History Tobacco Use Types Packs/Day Years Used Date Smoking Tobacco: Never Assessed Comments Unknown Sex and Gender Information Value Date Recorded Sex Assigned at Female 12/11/2024 3:31 PM ASSESSMENT NURSE PRACTITIONER Legal Sex Female 7:02 PM ASSESSMENT NURSE PRACTITIONER Gender Identity Male 12/11/2024 3:31 PM ASSESSMENT NURSE PRACTITIONER Sexual Orientation Not on file documented as of this encounter Plan of Treatment Not on file documented as of this encounter Procedures Procedure Name Priority Date/Time Associated Diagnosis Comments RADIOLOGY SCAN 09/11/2017 LABS SCAN 09/11/2017 documented in this encounter Results * LABS SCAN (09/11/2017) Narrative 09/11/2017 Ordered by an unspecified provider. [place] Historical Provider SCANNED EXTERNAL RES ULT Final Result * RADIOLOGY SCAN (09/11/2017) Anatomical Region Laterality Modality Other Narrative 09/11/2017 Ordered by an unspecified provider. [place] Historical Provider SCANNED EXTERNAL RES ULT Final Result documented in this encounter Visit Diagnoses Not on filedocumented in this encounter Care Teams Gaming Department Head Relationship Specialty Start Date End Date Pcp, Other Patient has a PCP, but uncertain who PCP - General 12/11/24 Cecile Pascual P.A. [address] [place] [address] Referring Provider Internal Medicine 12/11/24 documented as of this encounter
--- OUTSIDE RECORDS SUMMARY | 2024-12-13 13:10 | XMS_ITS | Encounter Summary ---
Author Organization [facility] Address [address] [place] [address] Care Team Providers Care Faculty Member Name Role Phone Pcp, Other Primary Care Provider Unavailabl e Cecile Pascual Unavailable [phone] Encounter Details Date Type Department Care Team (Late st Contact Info) Description 04/22/2022 [place] Historical EDM Scans [place] - Conversion Department - [facility] Medicine ProviderAmberly Historical Social History Tobacco Use Types Packs/Day Years Used Date Smoking Tobacco: Never Assessed Comments Unknown Sex and Gender Information Value Date Recorded Sex Assigned at Female 12/11/2024 3:31 PM FERMENTER OPERATOR Legal Sex Female 7:02 PM FERMENTER OPERATOR Gender Identity Male 12/11/2024 3:31 PM FERMENTER OPERATOR Sexual Orientation Not on file documented as of this encounter Plan of Treatment Not on file documented as of this encounter Visit Diagnoses Not on filedocumented in this encounter Care Teams Faculty Member Relationship Specialty Start Date End Date Pcp, Other Patient has a PCP, but uncertain who PCP - General 12/11/24 Cecile Pascual P.A. [address] [place] [address] Referring Provider Internal Medicine 12/11/24 documented as of this encounter
--- OUTSIDE RECORDS SUMMARY | 2024-12-13 13:10 | XMS_ITS | Encounter Summary ---
Author Organization [facility] Address [address] [place] [address] Care Team Providers Care Outer Diameter Technician Name Role Phone Pcp, Other Primary [...] Sex Assigned at Female 12/11/2024 3:31 PM MANAGER RELOCATION Legal Sex Female 7:02 PM MANAGER RELOCATION Gender Identity Male 12/11/2024 3:31 PM MANAGER RELOCATION Sexual Orientation Not on file documented as of this encounter Plan of Treatment Not on file documented as of this encounter Visit Diagnoses Not on filedocumented in this encounter Care Teams Outer Diameter Technician Relationship Specialty Start Date End Date Pcp, Other Patient has a PCP, but uncertain who PCP - General 12/11/24 Cecile Pascual P.A. [address] [place] [address] Referring Provider Internal Medicine 12/11/24 documented as of this encounter
--- OUTSIDE RECORDS SUMMARY | 2024-12-13 13:10 | XMS_ITS | Encounter Summary ---
Author Organization [facility] Address [address] [place] [address] Care Team Providers Care Watcher Automat Long Goods Name Role Phone Pcp, Other Primary Care Provider Unavailabl e Cecile Pascual Unavailable [phone] Encounter Details Date Type Department Care Team (Late st Contact Info) Description 10/18/2018 Amberly Historical EDM Scans [place] - Conversion Department - [facility] Medicine Provider, Amberly Historical Social History Tobacco Use Types Packs/Day Years Used Date Smoking Tobacco: Never Assessed Comments Unknown Sex and Gender Information Value Date Recorded Sex Assigned at Female 12/11/2024 3:31 PM ADMINISTRATIVE EXECUTIVE Legal Sex Female 7:02 PM ADMINISTRATIVE EXECUTIVE Gender Identity Male 12/11/2024 3:31 PM ADMINISTRATIVE EXECUTIVE Sexual Orientation Not on file documented as of this encounter Plan of Treatment Not on file documented as of this encounter Procedures Procedure Name Priority Date/Time Associated Diagnosis Comments LABS SCAN 10/18/2018 documented in this encounter Results * LABS SCAN (10/18/2018) Narrative 10/18/2018 Ordered by an unspecified provider. us [place] Historical Provider SCANNED EXTERNAL RES ULT Final Result documented in this encounter Visit Diagnoses Not on filedocumented in this encounter Care Teams Watcher Automat Long Goods Relationship Specialty Start Date End Date Pcp, Other Patient has a PCP, but uncertain who PCP - General 12/11/24 Cecile Pascual P.A. [address] [place] [address] Referring Provider Internal Medicine 12/11/24 documented as of this encounter
--- OUTSIDE RECORDS SUMMARY | 2024-12-13 13:10 | XMS_ITS | Clinical Summary ---
Author Organization [facility] Address [address] [place] [address] Care Team Providers Care Lacrosse Player Name Role Phone SergioCelio vela Primary Care Provider [phone] Allergies Active Allergy Reactions Criticality Noted Date Comments Droperidol ANXIETY High 03/02/2023 Medications Medication Sig Dispensed Refills Start Date End Date Status HYDROcodone-acetaminop hen (NORCO) 5-325 MG per tablet Take 1 tablet by mouth every 6 hours as needed for Pain. Active Active Problems Problem Noted Date Diagnosed Date PONV (postoperative nausea and vomiting) 023 Unspecified fracture of shaf t of left tibia, initial encounter for closed fracture 01/13/2023 Post-op pain 01/13/2023 Surgical History Surgery Date Site/Laterality Comments FOREARM/WRIST SURGERY UNLISTED Bilateral MASTECTOMY Bilateral Medical History Medical History Date Comments PONV (postoperative nausea and vomiting) Motion sickness Carpal tunnel syndrome Peptic ulcer disease Social History Tobacco Use Types Packs/Day Years Used Date Smoking Tobacco: Never Passive Smoke Exposure: Never Smokeless Tobacco: Never Tobacco Cessation:Counseling Given: No Alcohol Use Standard Drinks/Week Comments Never 0 (1 standard drink = 0.6 oz pur e alcohol) PHQ-2 Answer Date Recorded Initial depression screening score: 0 01/13/2023 PRAPARE - Transportation Answer Date Re corded In the past 12 months, has l ack of transportation kept you from medical appointments or from getting medications? No 12/31 In the past 12 months, has l ack of transportation kept you from meetings, work, or from getting things needed for daily living? No 01/13/2023 Interpersonal Safety Answer Date Record ed RETIRE In the past year, hav e you ever been physically hurt, threatened, controlled or made to feel afraid by someone close to you? No 01/13/2023 RETIRE Currently, are you in a relationship where you are being physically hurt, threatened, controlled or made to feel afraid? No 01/13/2023 Social Connections Answer Date Recorded How often do you see or talk to people that you care about and feel close to? (For example: talking to friends on the phone, visiting friends or family, going to druze or club meetings) 3 to 5 times a week 01/13/2023 Alcohol Use Answer Date Recorded Audit C Total Score 3 01/13/2023 Financial Resource Strain Answer Date R ecorded In the past year, have you o r any family members you live with been unable to get any of the following when it was really needed? Check all that apply. None 01/13/2023 Food Insecurity Answer Date Recorded RETIRE How often in the past 12 months would you say you are worried or stressed about having enough money to buy nutritious meals? Never 01/13/2023 Inadequate Housing Answer Date Recorded Social Determinants: Housing (Overall Score Help er) 0 01/20/2024 PRAPARE - Transportation Answer Date Re corded In the past 12 months, has l ack of transportation kept you from medical appointments or from getting medications? No 12/31 In the past 12 months, has l ack of transportation kept you from meetings, work, or from getting things needed for daily living? No 01/13/2023 Sex and Gender Information Value Date Recorded Sex Assigned at Not on file Gender Identity Not on file Sexual Orientation Not on file Job Start Date Occupation Industry Not on file Not on file Not on file Obstetrics History Last Filed Vital Signs Vital Sign Reading Time Taken Comments Blood Pressure 104/56 03/02/2023 5:10 AM CDT Pulse 88 03/02/2023 5:10 AM CDT Temperature 37.1 C (98.7 F) 03/02/2023 3:16 AM CDT Respiratory Rate 22 03/02/2023 5:10 AM CDT Oxygen Saturation 97% 03/02/2023 5:10 AM CDT Inhaled Oxygen Concentration - - Weight 88.3 kg (194 lb 10.7 oz) 01/13/2023 4:13 PM CDT Height 162.6 cm (5' 4 ) 01/13/2023 4:13 PM CDT Body Mass Index 33.41 01/13/2023 4:13 PM CDT Plan of Treatment Health Maintenance Due Date Last Done Comments Varicella Vaccine (1 of 2 - 13+ 2-dose series) 1999 Hepatitis B Vaccine (1 of 3 - 19+ 3-dose series) 2005 Pap Smear 2007 Cervical Cancer Screening 2016 HPV/Cotest 2016 Depression Screening 01/14/2024 01/13/2023 COVID-19 Vaccine (3 - 2023-2 5 season) 2024 03/26/2021, 02/26/2021 Influenza Vaccine (#1) 2024 9, 09/28/2015 DTaP/Tdap/Td Vaccine (4 - Td or Tdap) 12/15/2030 12/15/2020, 07/11/2012, 07/11/1991 HPV Vaccine Aged Out No longer eligi ble based on patient's age to complete this topic Hepatitis A Vaccine Aged Out No longe r eligible based on patient's age to complete this topic Meningococcal Serogroup B Vaccine Aged Out No longer eligible b ased on patient's age to complete this topic Meningococcal Vaccine Aged Out No nelson kelsie eligible based on patient's age to complete this topic Pneumococcal Vaccine 0-49 Aged Out No longer eligible based on patient's age to complete this topic Medical Devices Implanted Type [employer] Device Identifier Shelf Expiration Date Model / Serial / Lot Substitute Bngf 6cc Fibergraft Med Bioactive - [id number] Implanted:Qty: 1 on 01/13/2023 by Deric Sinha MD at [facility] Filler Left: Leg Lower Depuy Synthes Spine 07/10/2027 [id number] / / [id number] Substitute Bngf 6cc Fibergraft Med Bioactive - [id number] Implanted:Qty: 1 on 01/13/2023 by Deric Sinha MD at [facility] Filler Left: Leg Lower Depuy Synthes Spine [id number] / / NA Plate Bn 131mm Tib Prox Posteromedial 6 Hole Lowprfl Lmt - [id number] Implanted:Qty: 1 on 01/13/2023 by Deric Sinha MD at [facility] Plate Left: Leg Lower Depuy Synthes Trauma 01/30/2025 02.120.706S / / [id number] Screw Bn 3.5mm 38mm 2.5mm Full Thrd Self Tap Lowprfl Sm Hex - [id number] Implanted:Qty: 2 on 01/13/2023 by Deric Sinha MD at [facility] Screw Left: Leg Lower Depuy Synthes Trauma 204.838 / / NA Screw Bn 4.5mm 65mm Full Thrd Cannulated Ti - [id number] Implanted:Qty: 1 on 01/13/2023 by Deric Sinha MD at [facility] Screw Left: Leg Lower Depuy Synthes Trauma 04.355.565 / / NA Screw Bn 3.5mm 70mm T15 Self Tap Lock Yola Ang Strdr Ss Ns - [id number] Implanted:Qty: 1 on 01/13/2023 by Deric Sinha MD at [facility] Screw Left: Leg Lower Depuy Synthes Trauma 02.127.170 / / NA Screw Bn 4mm 6mm 55mm 2.5mm Full Thrd Sm Hex Sckt Ss Ns Canc - [id number] Implanted:Qty: 1 on 01/13/2023 by Deric Sinha MD at [facility] Screw Left: Leg Lower Depuy Synthes Trauma 206.055 / / NA Screw Bn 3.5mm 2.9mm 60mm T15 Full Thrd Self Tap Lock Strdr - [id number] Implanted:Qty: 1 on 01/13/2023 by Deric Sinha MD at [facility] Screw Left: Leg Lower Depuy Synthes Trauma 212.124 / / NA Screw Bn 3.5mm 6mm 48mm 2.5mm Full Thrd Self Tap Lowprfl - [id number] Implanted:Qty: 1 on 01/13/2023 by Deric Sinha MD at [facility] Screw Left: Leg Lower Depuy Synthes Trauma 204.848 / / NA Screw Bn 4.5mm 75mm Full Thrd Cannulated Ti - [id number] Implanted:Qty: 1 on 01/13/2023 by Deric Sinha MD at [facility] Screw Left: Leg Lower Depuy Synthes Trauma 04.355.575 / / NA Screw Bn 4mm 6mm 35mm 2.5mm Full Thrd Sm Hex Sckt Ss Ns Canc - [id number] Implanted:Qty: 1 on 01/13/2023 by Deric Sinha MD at [facility] Screw Left: Leg Lower Depuy Synthes Trauma 206.035 / / [id number] Screw Bn 3.5mm 6mm 55mm 2.5mm Full Thrd Self Tap Lowprfl - [id number] Implanted:Qty: 1 on 01/13/2023 by Deric Sinha MD at [facility] Screw Left: Leg Lower Depuy Synthes Trauma 204.855 / / NA Screw Bn 3.5mm 2.9mm 55mm T15 Full Thrd Self Tap Lock Strdr - [id number] Implanted:Qty: 1 on 01/13/2023 by Deric Sinha MD at [facility] Screw Left: Leg Lower Depuy Synthes Trauma 212.123 / / NA Screw Bn 3.5mm 34mm 2.5mm Full Thrd Self Tap Lowprfl Sm Hex - [id number] Implanted:Qty: 1 on 01/13/2023 by Deric Sinha MD at [facility] Screw Left: Leg Lower Depuy Synthes Trauma 204.834 / / NA Allograft Growth Fctr 5cc - [id number] Implanted:Qty: 1 on 01/13/2023 by Deric Sinha MD at [facility] Tissue Left: Leg Lower jaeyos 09/22/2027 [id number] / / [id number] Randal/Screws Description:Left leg Advance Directives * Full Resuscitation (Latest Code Status on File) Date Activated Date Inactivated Comments 01/13/2023 3:26 PM 01/14/2023 1:57 AM Care Teams Lacrosse Player Relationship Specialty Start Date End Date Celio Cao DO [address] [place] [address] PCP - General Family Practice 05/31/22
--- OUTSIDE RECORDS SUMMARY | 2024-12-13 13:10 | XMS_ITS | Encounter Summary ---
Author Organization [facility] Address [address] [place] [address] Care Team Providers Care Auto Tech Name Role Phone Pcp, Other Primary Care Provider Cecile Díaz Unavailable [phone] Encounter Details Date Type Department Care Team (Late st Contact Info) Description 02/25/2018 Amberly Historical EDM Scans [place] - Conversion Department - [facility] Medicine Provider, Amberly Mena Social History Tobacco Use Types Packs/Day Years Used Date Smoking Tobacco: Never Assessed Comments Unknown Sex and Gender Information Value Date Recorded Sex Assigned at Female 12/11/2024 3:31 PM TYRE BUILDER Legal Sex Female 7:02 PM TYRE BUILDER Gender Identity Male 12/11/2024 3:31 PM TYRE BUILDER Sexual Orientation Not on file documented as of this encounter Plan of Treatment Not on file documented as of this encounter Procedures Procedure Name Priority Date/Time Associated Diagnosis Comments RADIOLOGY SCAN 02/25/2018 LABS SCAN 02/25/2018 LABS SCAN 02/25/2018 CARDIAC STRIPS OR TRACINGS SCAN 02/25/2018 documented in this encounter Results * CARDIAC STRIPS OR TRACINGS SCAN (02/25/2018) Narrative 02/25/2018 Ordered by an unspecified provider. us [place] Historical Provider SCANNED EXTERNAL RES ULT Final Result * LABS SCAN (02/25/2018) Narrative 02/25/2018 Ordered by an unspecified provider. us Amberly Historical Provider SCANNED EXTERNAL RES ULT Final Result * LABS SCAN (02/25/2018) Narrative 02/25/2018 Ordered by an unspecified provider. us Amberly Historical Provider SCANNED EXTERNAL RES ULT Final Result * RADIOLOGY SCAN (02/25/2018) Anatomical Region Laterality Modality Other Narrative 02/25/2018 Ordered by an unspecified provider. [facility] Historical Provider SCANNED EXTERNAL RES ULT Final Result documented in this encounter Visit Diagnoses Not on filedocumented in this encounter Care Teams Auto Tech Relationship Specialty Start Date End Date Pcp, Other Patient has a PCP, but uncertain who PCP - General 12/11/24 Cecile Pascual P.A. [address] [place] [address] Referring Provider Internal Medicine 12/11/24 documented as of this encounter
--- OUTSIDE RECORDS SUMMARY | 2024-12-13 13:10 | XMS_ITS | Encounter Summary ---
Author Organization [facility] Address [address] [place] [address] Care Team Providers Care Accounting Coordinator Name Role Phone Pcp, Other Primary Care Provider Unavailabl e Cecile Pascual Unavailable [phone] Encounter Details Date Type Department Care Team (Late st Contact Info) Description 03/08/2022 Amberly Historical EDM Scans [place] - Conversion Department - [facility] Medicine ProviderAmberly Historical Social History Tobacco Use Types Packs/Day Years Used Date Smoking Tobacco: Never Assessed Comments Unknown Sex and Gender Information Value Date Recorded Sex Assigned at Female 12/11/2024 3:31 PM TECHNICAL SUPERVISOR Legal Sex Female 7:02 PM TECHNICAL SUPERVISOR Gender Identity Male 12/11/2024 3:31 PM TECHNICAL SUPERVISOR Sexual Orientation Not on file documented as of this encounter Plan of Treatment Not on file documented as of this encounter Visit Diagnoses Not on filedocumented in this encounter Care Teams Accounting Coordinator Relationship Specialty Start Date End Date Pcp, Other Patient has a PCP, but uncertain who PCP - General 12/11/24 Cecile Pascual P.A. [address] [place] [address] Referring Provider Internal Medicine 12/11/24 documented as of this encounter
--- OUTSIDE RECORDS SUMMARY | 2024-12-13 13:10 | XMS_ITS | Referral Summary ---
Author Organization [facility] Address [address] [place] [address] Care Team Providers Care Residential Real Estate Sales Manager Name Role Phone Celio Cao Primary Care Provider [phone] Allergies Active Allergy Reactions Criticality Noted Date [...] for closed fracture 01/13/2023 Post-op pain 01/13/2023 Social History Tobacco Use Types Packs/Day Years [...] phone, visiting friends or family, going to jainism or club meetings) 3 to 5 times [...] file Not on file Not on file Last Filed Vital Signs [...] Mass Index 33.41 01/13/2023 4:13 PM CDT Functional Status Functional Status Response Date of Assess ment RETIRED Are you deaf or do y ou have serious difficulty hearing? No 01/13/2023 RETIRED Are you blind or do you have serious difficulty seeing, even when wearing glasses? No 01/13/2023 Do you have serious difficul ty walking or climbing stairs? Yes 01/13/2023 Do you have difficulty dressing or bathing? No 01/13/2023 Because of a physical, menta l, or emotional condition, do you have difficulty doing errands alone? No 01/13/2023 Cognitive Status Response Date of Assessm ent Because of a physical, menta l, or emotional condition, do you have serious difficulty concentrating, remembering or making decisions? No 01/13/2023 Plan of Treatment Not on file Medical Devices Implanted Type Area Tool And Production Planner Device Identifier Shelf Expiration Date Model / Serial / Lot Substitute Bngf 6cc Fibergraft Med Bioactive - [id number] Implanted:Qty: 1 on 01/13/2023 by Deric Sinha MD at [facility] Filler Left: Leg Lower Depuy Synthes Spine 07/10/2027 [id number] / / [id number] Substitute Bngf 6cc Fibergraft Med Bioactive - [id number] Implanted:Qty: 1 on 01/13/2023 by Deric Sinha MD at [facility] Filler Left: Leg Lower Depuy Synthes Spine 7915-3765 / / NA Plate Bn 131mm Tib Prox Posteromedial 6 Hole Lowprfl Lmt - [id number] Implanted:Qty: 1 on 01/13/2023 by Deric Sinha MD at [facility] Plate Left: Leg Lower Depuy Synthes Trauma 01/30/2025 02.120.706S / / [id number] Screw Bn 3.5mm 38mm 2.5mm Full Thrd Self Tap Lowprfl Sm Hex - [id number] Implanted:Qty: 2 on 01/13/2023 by Deric Sinha MD at [facility] Screw Left: Leg Lower Depuy Synthes Trauma 204.838 / / NA Screw Bn 4.5mm 65mm Full Thrd Cannulated Ti - [id number] Implanted:Qty: 1 on 01/13/2023 by Deric Sinha MD at [facility] Screw Left: Leg Lower Depuy Synthes Trauma 04.355.565 / / NA Screw Bn 3.5mm 70mm T15 Self Tap Lock Yola Ang Strdr Ss Ns - [id number] Implanted:Qty: 1 on 01/13/2023 by Deric Sinha MD at [facility] Screw Left: Leg Lower Depuy Synthes Trauma 02.127.170 / / NA Screw Bn 4mm 6mm 55mm 2.5mm Full Thrd Sm Hex Sckt Ss Ns Canc - [id number] Implanted:Qty: 1 on 01/13/2023 by Deric Sinha MD at [facility] Screw Left: Leg Lower Depuy Synthes Trauma 206.055 / / NA Screw Bn 3.5mm 2.9mm 60mm T15 Full Thrd Self Tap Lock Strdr - [id number] Implanted:Qty: 1 on 01/13/2023 by Deric Sinha MD at [facility] Screw Left: Leg Lower Depuy Synthes Trauma 212.124 / / NA Screw Bn 3.5mm 6mm 48mm 2.5mm Full Thrd Self Tap Lowprfl - [id number] Implanted:Qty: 1 on 01/13/2023 by Deric Sinha MD at [facility] Screw Left: Leg Lower Depuy Synthes Trauma 204.848 / / NA Screw Bn 4.5mm 75mm Full Thrd Cannulated Ti - [id number] Implanted:Qty: 1 on 01/13/2023 by Deric Sinha MD at [facility] Screw Left: Leg Lower Depuy Synthes Trauma 04.355.575 / / NA Screw Bn 4mm 6mm 35mm 2.5mm Full Thrd Sm Hex Sckt Ss Ns Canc - [id number] Implanted:Qty: 1 on 01/13/2023 by Deric Sinha MD at [facility] Screw Left: Leg Lower Depuy Synthes Trauma 206.035 / / [id number] Screw Bn 3.5mm 6mm 55mm 2.5mm Full Thrd Self Tap Lowprfl - [id number] Implanted:Qty: 1 on 01/13/2023 by Deric Sinha MD at [facility] Screw Left: Leg Lower Depuy Synthes Trauma 204.855 / / NA Screw Bn 3.5mm 2.9mm 55mm T15 Full Thrd Self Tap Lock Strdr - [id number] Implanted:Qty: 1 on 01/13/2023 by Deric Sinha MD at [facility] Screw Left: Leg Lower Depuy Synthes Trauma 212.123 / / NA Screw Bn 3.5mm 34mm 2.5mm Full Thrd Self Tap Lowprfl Sm Hex - [id number] Implanted:Qty: 1 on 01/13/2023 by Deric Sinha MD at [facility] Screw Left: Leg Lower Depuy Synthes Trauma 204.834 / / NA Allograft Growth Fctr 5cc - [id number] Implanted:Qty: 1 on 01/13/2023 by Deric Sinha MD at [facility] Tissue Left: Leg Lower userfoxa Scancell 09/22/2027 [id number] / / [id number] Randal/Screws Description:Left leg Advance Directives * Full Resuscitation (Latest Code Status on File) Date Activated Date Inactivated Comments 01/13/2023 3:26 PM 01/14/2023 1:57 AM Care Teams Residential Real Estate Sales Manager Relationship Specialty Start Date End Date Celio Cao DO [address] [place], [place] [address] PCP - General Family Practice 05/31/22
--- OUTSIDE RECORDS SUMMARY | 2024-12-13 13:10 | XMS_ITS | Encounter Summary ---
Author Organization [facility] Address [address] [place] [address] Care Team Providers Care Technical Implementation Lead Name Role Phone Pcp, Other Primary Care Provider Unavailabl e Cecile Pascual Unavailable [phone] Encounter Details Date Type Department Care Team (Late st Contact Info) Description 03/09/2022 [place] Historical EDM Scans [place] - Conversion Department - [facility] Medicine ProviderAmberly Historical Social History Tobacco Use Types Packs/Day Years Used Date Smoking Tobacco: Never Assessed Comments Unknown Sex and Gender Information Value Date Recorded Sex Assigned at Female 12/11/2024 3:31 PM UNDERGRADUATE INTERN Legal Sex Female 7:02 PM UNDERGRADUATE INTERN Gender Identity Male 12/11/2024 3:31 PM UNDERGRADUATE INTERN Sexual Orientation Not on file documented as of this encounter Plan of Treatment Not on file documented as of this encounter Visit Diagnoses Not on filedocumented in this encounter Care Teams Technical Implementation Lead Relationship Specialty Start Date End Date Pcp, Other Patient has a PCP, but uncertain who PCP - General 12/11/24 Cecile Pascual P.A. [address] [place] [address] Referring Provider Internal Medicine 12/11/24 documented as of this encounter
--- OUTSIDE RECORDS SUMMARY | 2024-12-13 13:10 | XMS_ITS | Encounter Summary ---
Author Organization [facility] Address [address] [place] [address] Care Team Providers Care Cab Driver Name Role Phone Pcp, Other Primary Care Provider Unavailabl e Cecile Pascual Unavailable [phone] Encounter Details Date Type Department Care Team (Late st Contact Info) Description 03/09/2022 [place] Historical EDM Scans [place] - Conversion Department - [facility] Medicine ProviderAmberly Historical Social History Tobacco Use Types Packs/Day Years Used Date Smoking Tobacco: Never Assessed Comments Unknown Sex and Gender Information Value Date Recorded Sex Assigned at Female 12/11/2024 3:31 PM VACUUM SPINDLE SANDER Legal Sex Female 7:02 PM VACUUM SPINDLE SANDER Gender Identity Male 12/11/2024 3:31 PM VACUUM SPINDLE SANDER Sexual Orientation Not on file documented as of this encounter Plan of Treatment Not on file documented as of this encounter Visit Diagnoses Not on filedocumented in this encounter Care Teams Cab Driver Relationship Specialty Start Date End Date Pcp, Other Patient has a PCP, but uncertain who PCP - General 12/11/24 Cecile Pascual P.A. [address] [place] [address] Referring Provider Internal Medicine 12/11/24 documented as of this encounter
--- OUTSIDE RECORDS SUMMARY | 2024-12-13 13:10 | XMS_ITS | Encounter Summary ---
Author Organization [facility] Address [address] [place] [address] Care Team Providers Care Milk Condenser Name Role Phone Pcp, Other Primary Care Provider Unavailabl e Cecile Pascual Unavailable Encounter Details Date Type Department Care Team (Late st Contact Info) Description 03/07/2022 [place] Historical EDM Scans [place] - Conversion Department - [facility] Medicine ProviderAmberly Historical Social History Tobacco Use Types Packs/Day Years Used Date Smoking Tobacco: Never Assessed Comments Unknown Sex and Gender Information Value Date Recorded Sex Assigned at Female 12/11/2024 3:31 PM OPERATIONAL INTELLIGENCE ANALYST Legal Sex Female 7:02 PM OPERATIONAL INTELLIGENCE ANALYST Gender Identity Male 12/11/2024 3:31 PM OPERATIONAL INTELLIGENCE ANALYST Sexual Orientation Not on file documented as of this encounter Plan of Treatment Not on file documented as of this encounter Visit Diagnoses Not on filedocumented in this encounter Care Teams Milk Condenser Relationship Specialty Start Date End Date Pcp, Other Patient has a PCP, but uncertain who PCP - General 12/11/24 Cecile Pascual P.A. [address] [place] [address] Referring Provider Internal Medicine 12/11/24 documented as of this encounter
--- OUTSIDE RECORDS SUMMARY | 2024-12-13 13:10 | XMS_ITS | Encounter Summary ---
Author Organization [facility] Address [address] [place] [address] Care Team Providers Care Pediatric Medical Assistant Name Role Phone Pcp, Other Primary Care Provider Unavailabl e Cecile Pascual Unavailable [phone] Encounter Details Date Type Department Care Team (Late st Contact Info) Description 03/08/2022 [place] Historical EDM Scans [place] - Conversion Department - [facility] Medicine ProviderAmberly Historical Social History Tobacco Use Types Packs/Day Years Used Date Smoking Tobacco: Never Assessed Comments Unknown Sex and Gender Information Value Date Recorded Sex Assigned at Female 12/11/2024 3:31 PM EMULSION OPERATOR Legal Sex Female 7:02 PM EMULSION OPERATOR Gender Identity Male 12/11/2024 3:31 PM EMULSION OPERATOR Sexual Orientation Not on file documented as of this encounter Plan of Treatment Not on file documented as of this encounter Visit Diagnoses Not on filedocumented in this encounter Care Teams Pediatric Medical Assistant Relationship Specialty Start Date End Date Pcp, Other Patient has a PCP, but uncertain who PCP - General 12/11/24 Cecile Pascual P.A. [address] [place] [address] Referring Provider Internal Medicine 12/11/24 documented as of this encounter
--- OUTSIDE RECORDS SUMMARY | 2024-12-13 13:10 | XMS_ITS | Encounter Summary ---
Author Organization [facility] Address [address] [place] [address] Care Team Providers Care Raker Buffing Wheel Name Role Phone Pcp, Other Primary Care Provider Unavailabl e Cecile Pascual Unavailable [phone] Encounter Details Date Type Department Care Team (Late st Contact Info) Description 04/22/2022 [place] Historical EDM Scans [place] - Conversion Department - [facility] Medicine ProviderAmberly Historical Social History Tobacco Use Types Packs/Day Years Used Date Smoking Tobacco: Never Assessed Comments Unknown Sex and Gender Information Value Date Recorded Sex Assigned at Female 12/11/2024 3:31 PM WINEMAKER Legal Sex Female 7:02 PM WINEMAKER Gender Identity Male 12/11/2024 3:31 PM WINEMAKER Sexual Orientation Not on file documented as of this encounter Plan of Treatment Not on file documented as of this encounter Visit Diagnoses Not on filedocumented in this encounter Care Teams Raker Buffing Wheel Relationship Specialty Start Date End Date Pcp, Other Patient has a PCP, but uncertain who PCP - General 12/11/24 Cecile Pascual P.A. [address] [place] [address] Referring Provider Internal Medicine 12/11/24 documented as of this encounter
--- OUTSIDE RECORDS SUMMARY | 2024-12-13 13:10 | XMS_ITS | Encounter Summary ---
Author Organization [facility] Address [address] [place] [address] Care Team Providers Care Rn Assessment Name Role Phone Pcp, Other Primary Care Provider Unavailabl e Cecile Pascual Unavailable [phone] Encounter Details Date Type Department Care Team (Late st Contact Info) Description 03/09/2022 [place] Historical EDM Scans [place] - Conversion Department - [facility] Medicine ProviderAmberly Historical Social History Tobacco Use Types Packs/Day Years Used Date Smoking Tobacco: Never Assessed Comments Unknown Sex and Gender Information Value Date Recorded Sex Assigned at Female 12/11/2024 3:31 PM SAMPLE PULLER Legal Sex Female 7:02 PM SAMPLE PULLER Gender Identity Male 12/11/2024 3:31 PM SAMPLE PULLER Sexual Orientation Not on file documented as of this encounter Plan of Treatment Not on file documented as of this encounter Visit Diagnoses Not on filedocumented in this encounter Care Teams Rn Assessment Relationship Specialty Start Date End Date Pcp, Other Patient has a PCP, but uncertain who PCP - General 12/11/24 Cecile Pascual P.A. [address] [place] [address] Referring Provider Internal Medicine 12/11/24 documented as of this encounter
--- OUTSIDE RECORDS SUMMARY | 2024-12-13 13:10 | XMS_ITS | Encounter Summary ---
Author Organization [facility] Address [address] [address] Care Team Providers Care Director Of Instruction Name Role Phone Pcp, Other Primary Care Provider Cecile Díaz Unavailable [phone] Encounter Details Date Type Department Care Team (Late st Contact Info) Description 12/31/2019 [place] Historical EDM Scans [place] - Conversion Department - [facility] Medicine Provider, [place] Historical Social History Tobacco Use Types Packs/Day Years Used Date Smoking Tobacco: Never Assessed Comments Unknown Sex and Gender Information Value Date Recorded Sex Assigned at Female 12/11/2024 3:31 PM DIRECTOR MEDICAID Legal Sex Female 7:02 PM DIRECTOR MEDICAID Gender Identity Male 12/11/2024 3:31 PM DIRECTOR MEDICAID Sexual Orientation Not on file documented as of this encounter Plan of Treatment Not on file documented as of this encounter Procedures Procedure Name Priority Date/Time Associated Diagnosis Comments RADIOLOGY SCAN 12/31/2019 LABS SCAN 12/31/2019 documented in this encounter Results * LABS SCAN (12/31/2019) Narrative 12/31/2019 Ordered by an unspecified provider. [place] Historical Provider SCANNED EXTERNAL RES ULT Final Result * RADIOLOGY SCAN (12/31/2019) Anatomical Region Laterality Modality Other Narrative 12/31/2019 Ordered by an unspecified provider. [place] Historical Provider SCANNED EXTERNAL RES ULT Final Result documented in this encounter Visit Diagnoses Not on filedocumented in this encounter Care Teams Director Of Instruction Relationship Specialty Start Date End Date Pcp, Other Patient has a PCP, but uncertain who PCP - General 12/11/24 Cecile Pascual P.A. [address] [place] [address] Referring Provider Internal Medicine 12/11/24 documented as of this encounter
--- OUTSIDE RECORDS SUMMARY | 2024-12-13 13:10 | XMS_ITS | Encounter Summary ---
Author Organization [facility] Address [address] [place] [address] Care Team Providers Care Milking Machine Operator Name Role Phone Pcp, Other Primary Care Provider Unavailabl e Cecile Pascual Unavailable [phone] Encounter Details Date Type Department Care Team (Late st Contact Info) Description 03/09/2022 [place] Historical EDM Scans [place] - Conversion Department - [facility] Medicine ProviderAmberly Historical Social History Tobacco Use Types Packs/Day Years Used Date Smoking Tobacco: Never Assessed Comments Unknown Sex and Gender Information Value Date Recorded Sex Assigned at Female 12/11/2024 3:31 PM TASSEL CLIPPER Legal Sex Female 7:02 PM TASSEL CLIPPER Gender Identity Male 12/11/2024 3:31 PM TASSEL CLIPPER Sexual Orientation Not on file documented as of this encounter Plan of Treatment Not on file documented as of this encounter Visit Diagnoses Not on filedocumented in this encounter Care Teams Milking Machine Operator Relationship Specialty Start Date End Date Pcp, Other Patient has a PCP, but uncertain who PCP - General 12/11/24 Cecile Pascual P.A. [address] [place] [address] Referring Provider Internal Medicine 12/11/24 documented as of this encounter
--- OUTSIDE RECORDS SUMMARY | 2024-12-13 13:10 | XMS_ITS | Encounter Summary ---
Author Organization [facility] Address [address] [place] [address] Care Team Providers Care Commissioning Editor Name Role Phone Pcp, Other Primary Care Provider Cecile Díaz Unavailable [phone] Encounter Details Date Type Department Care Team (Late st Contact Info) Description 03/08/2022 Amber[place] Historical EDM Scans [place] - Conversion Department - [facility] Medicine Provider, [place] Historical Social History Tobacco Use Types Packs/Day Years Used Date Smoking Tobacco: Never Assessed Comments Unknown Sex and Gender Information Value Date Recorded Sex Assigned at Female 12/11/2024 3:31 PM BARREL COATER Legal Sex Female 7:02 PM BARREL COATER Gender Identity Male 12/11/2024 3:31 PM BARREL COATER Sexual Orientation Not on file documented as of this encounter Plan of Treatment Not on file documented as of this encounter Procedures Procedure Name Priority Date/Time Associated Diagnosis Comments RADIOLOGY SCAN 03/08/2022 RADIOLOGY SCAN 03/08/2022 MISC ORDERS SCAN 03/08/2022 MISC ORDERS SCAN 03/08/2022 MISC ORDERS SCAN 03/08/2022 MISC ORDERS SCAN 03/08/2022 MISC ORDERS SCAN 03/08/2022 LABS SCAN 03/08/2022 LABS SCAN 03/08/2022 documented in this encounter Results * MISC ORDERS SCAN (03/08/2022) Narrative 03/08/2022 Ordered by an unspecified provider. [facility] Provider SCANNED EXTERNAL RES ULT Final Result * MISC ORDERS SCAN (03/08/2022) Narrative 03/08/2022 Ordered by an unspecified provider. [facility] Provider SCANNED EXTERNAL RES ULT Final Result * MISC ORDERS SCAN (03/08/2022) Narrative 03/08/2022 Ordered by an unspecified provider. Result [facility] Provider SCANNED EXTERNAL RES ULT Final Result * MISC ORDERS SCAN (03/08/2022) Narrative 03/08/2022 Ordered by an unspecified provider. [facility] Provider SCANNED EXTERNAL RES ULT Final Result * MISC ORDERS SCAN (03/08/2022) Narrative 03/08/2022 Ordered by an unspecified provider. Result [facility] Provider SCANNED EXTERNAL RES ULT Final Result * LABS SCAN (03/08/2022) Narrative 03/08/2022 Ordered by an unspecified provider. [facility] Provider SCANNED EXTERNAL RES ULT Final Result * LABS SCAN (03/08/2022) Narrative 03/08/2022 Ordered by an unspecified provider. [facility] Provider SCANNED EXTERNAL RES ULT Final Result * RADIOLOGY SCAN (03/08/2022) Anatomical Region Laterality Modality Other Narrative 03/08/2022 Ordered by an unspecified provider. [facility] Provider SCANNED EXTERNAL RES ULT Final Result * RADIOLOGY SCAN (03/08/2022) Anatomical Region Laterality Modality Other Narrative 03/08/2022 Ordered by an unspecified provider. us [place] Historical Provider SCANNED EXTERNAL RES ULT Final Result documented in this encounter Visit Diagnoses Not on filedocumented in this encounter Care Teams Commissioning Editor Relationship Specialty Start Date End Date Pcp, Other Patient has a PCP, but uncertain who PCP - General 12/11/24 Cecile Pascual P.A. [address] [place] [address] Referring Provider Internal Medicine 12/11/24 documented as of this encounter
--- OUTSIDE RECORDS SUMMARY | 2024-12-13 13:10 | XMS_ITS | Clinical Summary ---
Author Organization [facility] Address [address] [place] [address] Care Team Providers Care Librarian Helper Name Role Phone Pcp, Other Primary Care Provider Cecile Díaz Unavailable [phone] Allergies No known active allergies Medications Doxycycline Monohydrate 100 mg tab Take 1 tablet by mouth twice a day through 03/14/2022. 10 tablet 2 5:16 PM CDT 03/10/20 22 Active Lactobacillus acidophilus (Probiotic) 10 billion cell cap Take 1 capsule by mouth twice a day. 30 capsule 03/10/20 22 Active traMADoL (Ultram) 50 mg tablet take 1 tablet by mouth every 8 hours as needed for pain 20 tablet 2 5:16 PM CDT 03/11/20 22 Active ibuprofen (MOTRIN) 800 mg tablet take 1 tablet by mouth three times a day as needed for pain 30 tablet 1 03/21/20 22 Active acetaminophen (Tylenol Extra Strength) 500 mg tablet Take 2 tablet by mouth every twelve hours as needed for pain 40 tablet 1 2 2:16 PM CDT 03/21/20 22 Active naproxen (Naprosyn) 500 mg tablet Take 1 tablet by mouth twice a day 20 tablet 1 2 2:16 PM CDT 03/21/20 22 Active HYDROcodone-aceta minophen (Ulysses) 5-325 mg tablet Take 1 tablet by mouth every 24 hours as needed for pain 10 tablet 2 3:52 PM CDT 05/06/20 22 Active HYDROcodone-aceta minophen (Ulysses) 5-325 mg tablet Take 1 tablet by mouth every 24 hours as needed for pain 10 tablet 3 1:32 PM DIGITAL CONTENT MARKETING MANAGER 12/15/19 23 Active ergocalciferol (Vitamin D2) 1,250 mcg (50,000 unit) capsule Take 1 capsule by mouth every 7 days. 6 capsule 3 1:31 PM CDT 01/15/20 23 Active oxyCODONE (OXYIR) 10 mg immediate release tablet Take 1 tablet by mouth every six hours as needed 42 tablet 3 12:01 PM CDT 01/20/20 23 Active sulfamethoxazole- trimethoprim-DS (Bactrim DS) 800-160 MG tablet Take 1 tablet by mouth twice a day 28 tablet 3 2:32 PM CDT 01/28/20 23 Active enoxaparin (LOVENOX) 40 mg/0.4 mL injection Use 1 syringe subcutaneously once a day for 21 days 8.4 mL 3 12:44 PM CDT 01/28/20 23 Active amoxicillin (AMOXIL) 500 mg capsule take 1 capsule by mouth every 8 hours until gone 30 capsule 3 3:42 PM CDT 02/19/20 23 Active acetaminophen-cod eine (TYLENOL #3) 300-30 mg tablet take 1 tablet by mouth every 4-6 hours as needed for pain 20 tablet 3 3:42 PM CDT 02/19/20 23 Active diclofenac potassium (CATAFLAM) 50 mg tablet Take 1 tablet by mouth twice a day 10 tablet 3 5:01 PM CDT 02/27/20 23 Active diclofenac sodium (VOLTAREN) 50 mg enteric-coated tablet Take 1 tablet by mouth every twelve hours 60 tablet 04/06/20 23 Active gabapentin (Neurontin) 300 mg capsule Take 1 capsule by mouth at bedtime as needed 60 capsule 3 2:32 PM CDT 04/06/20 23 Active diclofenac sodium (VOLTAREN) 50 mg enteric-coated tablet Take 1 tablet by mouth every twelve hours 60 tablet 3 2:29 PM CDT 05/18/20 23 Active calcium carbonate 1250 mg tab Take 1 tablet by mouth twice a day 42 tablet 3 5:35 PM CDT 06/15/20 23 Active cyclobenzaprine (FLEXERIL) 5 mg tablet Take 1 tablet by mouth every eight hours as needed 20 tablet 3 5:35 PM CDT 06/15/20 23 Active diclofenac sodium (VOLTAREN) 50 mg enteric-coated tablet Take 1 tablet by mouth every twelve hours 60 tablet 3 5:35 PM CDT 06/15/20 23 Active meclizine (ANTIVERT) 25 mg tab Take 1 tablet by mouth 3 times daily as needed 30 tablet 1 3 2:32 PM CDT 06/24/20 23 Active naproxen (Naprosyn) 500 mg tablet Take 1 tablet by mouth twice a day. do NOT take with diclofenac 20 tablet 1 3 2:32 PM CDT 06/24/20 23 Active albuterol sulfate 90 mcg/actuation inhaler Inhale 2 puffs by mouth every 4 to 6 hours as needed for shortness of breath. 8.5 g 1 3 2:32 PM CDT 06/24/20 23 Active dextromethorphan- guaiFENesin 2 mg-20 mg/mL oral syrup take 5ml by mouth every 6 hours as needed 237 mL 3 11:28 AM CDT 07/15/20 23 Active HYDROcodone-aceta minophen (Ulysses) 10-325 mg tablet Take 1 tablet by mouth every eight to twelve hours 20 tablet 3 8:31 AM CDT 08/01/20 23 Active diclofenac sodium (VOLTAREN) 75 mg enteric-coated tablet Take 1 Tablet by mouth 2 x daily with breakfast & dinner. 60 tablet 1 4 10:35 AM DIGITAL CONTENT MARKETING MANAGER 12/07/19 24 Active ondansetron orally disintegrating tablet (ZOFRAN ODT) 4 mg Dissolve 1 tablet by mouth every 12 hours for 10 doses. 10 tablet 12/11/19 25 025 Active ondansetron (ZOFRAN ODT) 4 mg orally disintegrating tablet Dissolve 1 tablet by mouth every 8 hours as needed for nausea or vomiting. 15 tablet 3 1:11 PM DIGITAL CONTENT MARKETING MANAGER 09/14/20 23 025 Disconti nueverett(No Longer Taking) Encounters Date Type Department Care Team Description 12/11/2024 3:28 PM DIGITAL CONTENT MARKETING MANAGER - 12/11/2024 5:51 PM DIGITAL CONTENT MARKETING MANAGER Emergency [facility] Emergency Department - [facility] Medicine [address] [place] [address] Misael Loera M.D. Left against medical advice (Primary Dx) Discharge Disposition: Against Medical Advice from Last 3 Months Social History Tobacco Use Types Packs/Day Years Used Date Smoking Tobacco: Never Smokeless Tobacco: Never Tobacco Cessation:Counseling Given: Not Answered Alcohol Use Standard Drinks/Week Comments Not Currently 0 (1 standard drink = 0.6 oz pur e alcohol) Comments No Sex and Gender Information Value Date Recorded Sex Assigned at Female 12/11/2024 3:31 PM DIGITAL CONTENT MARKETING MANAGER Legal Sex Female 7:02 PM DIGITAL CONTENT MARKETING MANAGER Gender Identity Male 12/11/2024 3:31 PM DIGITAL CONTENT MARKETING MANAGER Sexual Orientation Not on file Last Filed Vital Signs Vital Sign Reading Time Taken Comments Blood Pressure 101/80 12/11/2024 3:27 PM DIGITAL CONTENT MARKETING MANAGER Pulse 87 12/11/2024 3:27 PM DIGITAL CONTENT MARKETING MANAGER Temperature 37 C (98.6 F) 12/11/2024 3:27 PM DIGITAL CONTENT MARKETING MANAGER Respiratory Rate 22 12/11/2024 3:27 PM DIGITAL CONTENT MARKETING MANAGER Oxygen Saturation 100% 12/11/2024 3:27 PM DIGITAL CONTENT MARKETING MANAGER Inhaled Oxygen Concentration - - Weight 81.6 kg (180 lb) 09/14/2023 2:06 PM DIGITAL CONTENT MARKETING MANAGER Height 167.6 cm (5' 6 ) 09/14/2023 2:06 PM DIGITAL CONTENT MARKETING MANAGER Body Mass Index 29.05 09/14/2023 2:06 PM DIGITAL CONTENT MARKETING MANAGER Plan of Treatment Health Maintenance Due Date Last Done Comments CERVICAL CANCER SCREENING 1986 HEPATITIS C SCREENING 1986 TDAP/TD VACCINE (1 - Tdap) 1997 DEPRESSION SCREENING 1998 HIV SCREENING 2001 COVID-19 VACCINE (3 - 2023-2 5 season) 2024 03/26/2021, 02/26/2021 INFLUENZA VACCINE (#1) 2024 , 09/28/2015 ZOSTER SERIES VACCINE (1 of 2) 2036 Pneumococcal Vaccine: Childhood and At-Risk Adult <65 yo Series Aged Out No longer eligible b ased on patient's age to complete this topic Procedures Procedure Name Priority Date/Time Associated Diagnosis Comments CULTURE, URINE STAT 12/11/2024 5:14 PM DIGITAL CONTENT MARKETING MANAGER POC URINE ROUTINE 12/11/2024 4 :49 PM DIGITAL CONTENT MARKETING MANAGER POC URINE DIPSTICK ROUTINE 12/11/2024 4: 41 PM DIGITAL CONTENT MARKETING MANAGER URINE TOXICOLOGY SCREEN STAT 12/11/2024 4:38 PM DIGITAL CONTENT MARKETING MANAGER HC ALCOHOL IMMUNOASSAY STAT 3:43 PM DIGITAL CONTENT MARKETING MANAGER CBC WITH AUTO DIFFERENTIAL STAT 12/11/2024 3:43 PM DIGITAL CONTENT MARKETING MANAGER MAGNESIUM STAT 12/11/2024 3:43 PM DIGITAL CONTENT MARKETING MANAGER HC LIPASE STAT 12/11/2024 3:43 PM DIGITAL CONTENT MARKETING MANAGER COMPREHENSIVE METABOLIC PANEL STAT 12/11/2024 3:43 PM DIGITAL CONTENT MARKETING MANAGER CBC WITH DIFFERENTIAL STAT 12/11/2024 3:43 PM DIGITAL CONTENT MARKETING MANAGER from Last 3 Months Results * CULTURE, URINE (12/11/2024 5:14 PM DIGITAL CONTENT MARKETING MANAGER) [facility] Urine Culture <10,000 CFU/mL 12/13/2024 7:43 AM DIGITAL CONTENT [place] [address] Urine (Urine, Mid-Stream/Clean Catch (Voided)) 12/11/2024 5:14 PM DIGITAL CONTENT MARKETING MANAGER 12/11/2024 5:19 PM DIGITAL CONTENT MARKETING MANAGER us Cecile De LAB MICROBIOLOGY ORDERABLE S Final Result [place], [place] [id number] [place] [address], [facility] * POC Urine (12/11/2024 4:49 PM DIGITAL CONTENT MARKETING MANAGER) POC HCG Negative Negative 12/11/2024 4:55 PM DIGITAL CONTENT [place] [address] Urine URINE / Unknown 12/11/2024 4 :49 PM DIGITAL CONTENT MARKETING MANAGER 12/11/2024 4:55 PM DIGITAL CONTENT MARKETING MANAGER us Misael Loera M.D. LAB COAGULATION ORDERABLES Fin al Result [place], [place] [id number] [place] [address], [facility] * (ABNORMAL) POC Urine Dipstick (12/11/2024 4:41 PM DIGITAL CONTENT MARKETING MANAGER) Pathologist [facility] POCUA Clarity Clear 12/11/2024 4:44 PM DIGITAL CONTENT [place] [address] POCUA Color Yellow 12/11/2024 4:44 [place] [address] POCUA Leukocytes Trace(A) Negative 12/11/19 25 4:44 PM DIGITAL CONTENT [place] [address] POCUA Nitrite Negative Negative 12/11/2024 4:44 PM DIGITAL CONTENT [place] [address] POCUA Urobilinogen 1.0 0.2 - 1.0 E.U/dL 12/11/2024 4:44 PM DIGITAL CONTENT [place] [address] POCUA pH 8.5(H) 5.0 - 8.0 12/11/2024 4:44 PM DIGITAL CONTENT [place] [address] POCUA Blood Moderate(A) Negative 12/11/2024 4:44 [place] [address] POCUA Specific Gove 1.020 1.001 - 1.035 12/11/2024 4:44 PM DIGITAL CONTENT [place] [address] POCUA Ketone 15(A) Negative mg/dL 12/11/2024 4:44 PM DIGITAL CONTENT [place] [address] POCUA Bilirubin Negative Negative 4:44 PM DIGITAL CONTENT [place] [address] POCUA Glucose Negative Negative mg/dL 12/11/2024 4:44 PM DIGITAL CONTENT [place] [address] POCUA Protein 30(A) Negative mg/dL 12/11/2024 4:44 PM DIGITAL CONTENT [place] [address] Urine URINE / Unknown 12/11/2024 4 :41 PM DIGITAL CONTENT MARKETING MANAGER 12/11/2024 4:44 PM DIGITAL CONTENT MARKETING MANAGER Misael Loera M.D. LAB CHEMISTRY ORDERABLES Final Result [place], [place] [id number] [place] [address], [facility] * (ABNORMAL) Urine Toxicology Screen (12/11/2024 4:38 PM DIGITAL CONTENT MARKETING MANAGER) [facility] Amphetamines None Detected None Detected 12/11/2024 5:29 PM DIGITAL CONTENT [place] [address] Barbituate None Detected None Detected 12/11/2024 5:29 PM DIGITAL CONTENT [place] [address] Benzodiazepine None Detected None Detected 12/11/2024 5:29 PM DIGITAL CONTENT [place] [address] Cocaine None Detected None Detected 12/11/2024 5:29 PM DIGITAL CONTENT [place] [address] Phencyclidine (PCP) None Detected None Detected 12/11/2024 5:29 PM DIGITAL CONTENT [place] [address] Opiates None Detected None Detected 12/11/2024 5:29 PM DIGITAL CONTENT [place] [address] Cannabinoids, Urine Positive(A) None Detected 12/11/2024 5:29 [place] [address] Urine URINE / Unknown 12/11/2024 4 :38 PM DIGITAL CONTENT MARKETING MANAGER 12/11/2024 4:41 PM DIGITAL CONTENT MARKETING [place]NA[place] [address] - 12/11/2024 5:29 PM DIGITAL CONTENT MARKETING MANAGER All positive results are considered presumptive until confirmed by an alternative method and should not be reported to any local, state or federal agencies without confirmatory testing. This testing should not be used for employee drug testing or other purposes requiring chain of custody handling procedures. Cutoff values used to discern positive from none detected results: Amphetamines: 1000 ng/mL Barbiturates: 200 ng/mL Benzodiazepines: 100 ng/mL Cocaine metabolites: 300 ng/mL Phencyclidine: 25 ng/mL Opiates: 300 ng/mL Cannabinoids: 50 ng/mL Cecile De LAB CHEMISTRY ORDERABLES F inal Result [place], [place] [address] [place] [address], [facility] * (ABNORMAL) CBC and Differential (12/11/2024 3:43 PM DIGITAL CONTENT MARKETING MANAGER) WBC 13.9(H) 3.5 - 11.0 10e3/uL 12/11/2024 3:57 [place] [address] RBC 4.93 4.47 - 5.26 10e6/uL 12/11/2024 3:57 [place] [address] Hemoglobin 15.5 13.5 - 15.5 g/dL 12/11/2024 3:57 [place] [address] Hematocrit 45.9 41.0 - 47.0 % 12/11/2024 3:57 [place] [address] MCV 93.1 81.0 - 99.0 fL 12/11/2024 3:57 [place] [address] MCH 31.4 26.0 - 33.0 pg 12/11/2024 3:57 [place] [address] MCHC 33.8 32.0 - 35.0 g/dL 12/11/2024 3:57 [place] [address] RDW 12.1 <14.3 % 12/11/2024 3:57 [place] [address] Platelet 354 150 - 450 10e3/uL 12/11/2024 3:57 [place] [address] MPV 9.2(L) 9.6 - 12.6 fL 12/11/2024 3:57 [place] [address] NRBC Percent 0.0 <=0.0 % WBC 12/11/2024 3:57 [place] [address] Neutrophils 82.3(H) 39.0 - 75.0 % 12/11/2024 3:57 [place] [address] Lymphocytes 11.0(L) 16.0 - 47.0 % 12/11/2024 3:57 [place] [address] Monocytes 5.6 4.0 - 12.0 % 12/11/2024 3:57 [place] [address] Eosinophils 0.3 0.0 - 7.0 % 12/11/2024 3:57 [place] [address] Basophils 0.4 0.0 - 2.0 % 12/11/2024 3:57 [place] [address] Immature Granulocytes 0.4 <0.5 % 12/11/2024 3:57 [place] [address] Neutrophils Absolute 11.43(H) 1.12 - 6.72 10e3/uL 12/11/2024 3:57 [place] [address] Lymphocytes Absolute 1.52 0.90 - 3.30 10e3/uL 12/11/2024 3:57 PM DIGITAL CONTENT MARK[place] [address] Monocytes Absolute 0.77 0.16 - 0.92 10e3/uL 12/11/2024 3:57 [place] [address] Eosinophils Absolute 0.04 0.00 - 0.60 10e3/uL 12/11/2024 3:57 [place] [address] Basophils Absolute 0.05 0.00 - 0.21 10e3/uL 12/11/2024 3:57 [place] [address] Immature Granulocyte Absolute 0.05(H) <0.04 10e3/uL 12/11/2024 3:57 [place] [address] NRBC Absolute 0.00 <=0.00 10e3/uL 12/11/2024 3:57 [place] [address] Blood VENOUS BLOOD SPECIMEN / Unknown Venipuncture / Unknown 12/11/2024 3:43 PM DIGITAL CONTENT MARKETING MANAGER 12/11/2024 3:45 PM DIGITAL CONTENT MARKETING MANAGER us Cecile De LAB HEMATOLOGY ORDERABLES Final Result [place], [place] [address] [place] [address], [facility] * Magnesium (12/11/2024 3:43 PM DIGITAL CONTENT MARKETING MANAGER) Magnesium 1.9 1.6 - 2.5 mg/dL 12/11/2024 4:12 PM DIGITAL CONTENT [place] [address] Blood VENOUS BLOOD SPECIMEN / Unknown Venipuncture / Unknown 12/11/2024 3:43 PM DIGITAL CONTENT MARKETING MANAGER 12/11/2024 3:45 PM DIGITAL CONTENT MARKETING MANAGER us Cecile Caldera.Beatriz. LAB CHEMISTRY ORDERABLES F inal Result Performing Organization Address [facility] Co de Phone Number [address] * (ABNORMAL) Lipase (12/11/2024 3:43 PM DIGITAL CONTENT MARKETING MANAGER) [facility] Lipase 218(H) 11 - 65 U/L 12/11/2024 4:12 PM DIGITAL CONTENT [place] [address] Blood VENOUS BLOOD SPECIMEN / Unknown Venipuncture / Unknown 12/11/2024 3:43 PM DIGITAL CONTENT MARKETING MANAGER 12/11/2024 3:45 PM DIGITAL CONTENT MARKETING MANAGER us Cecile Caldera.Beatriz. LAB CHEMISTRY ORDERABLES F inal Result Performing Organization Address [facility] Co de Phone Number [address] * Comprehensive Metabolic Panel (12/11/2024 3:43 PM DIGITAL CONTENT MARKETING MANAGER) [facility] Glucose 92 60 - 99 mg/dL 12/11/2024 4:12 PM DIGITAL CONTENT [place] [address] Comment:Reference range for fasting plasma glucose only. Sodium 142 135 - 145 mmol/L 12/11/2024 4:12 PM DIGITAL CONTENT [place] [address] Potassium 3.8 3.5 - 5.0 mmol/L 12/11/2024 4:12 PM DIGITAL CONTENT [place] [address] Chloride 106 98 - 108 mmol/L 12/11/2024 4:12 [place] [address] Carbon Dioxide 23 23 - 30 mmol/L 12/11/2024 4:12 [place] [address] Anion Gap 13 6 - 15 mmol/L 12/11/2024 4:12 [place] [address] Blood Urea Nitrogen 11 7 - 20 mg/dL 12/11/2024 4:12 [place] [address] Creatinine 0.71 0.50 - 1.40 mg/dL 12/11/2024 4:12 [place] [address] eGFR Estimate, All 112 >=90 mL/min/1.7 3 sq. m 12/11/2024 4:12 [place] [address] Comment: eGFR calculated using the 2020 CKD-EPI non-race equation. Chronic Kidney Disease: <60 mL/min/1.73 sq. m Stage 3a: 45-59 mL/min/1.73 sq. m Stage 3b: 30-44 mL/min/1.73 sq. m Stage 4: 15-29 mL/min/1.73 sq. m Stage 5: <15 mL/min/1.73 sq. m Calcium 8.8 8.4 - 10.2 mg/dL 12/11/2024 4:12 [place] [address] Bilirubin Total 1.0 mg/dL 4:12 [place] [address] Protein, Total 7.4 6.0 - 8.3 g/dL 12/11/2024 4:12 [place] [address] Albumin 4.1 3.5 - 5.0 g/dL 12/11/2024 4:12 [place] [address] Alkaline phosphatase 78 30 - 120 U/L 12/11/2024 4:12 PM DIGITAL CONTENT [place] [address] AST (SGOT) 27 8 - 37 U/L 12/11/2024 4:12 PM DIGITAL CONTENT [place] [address] ALT (SGPT) 25 8 - 35 U/L 12/11/2024 4:12 PM DIGITAL CONTENT [place] [address] Blood VENOUS BLOOD SPECIMEN / Unknown Venipuncture / Unknown 12/11/2024 3:43 PM DIGITAL CONTENT MARKETING MANAGER 12/11/2024 3:45 PM DIGITAL CONTENT MARKETING MANAGER us Cecile Pascual P.A. LAB CHEMISTRY ORDERABLES F inal Result Performing Organization Address [facility] Co de Phone Number [address] * Serum Alcohol (12/11/2024 3:43 PM DIGITAL CONTENT MARKETING MANAGER) Pathologist [facility] Alcohol, serum <10 <25 mg/dL 12/11/2024 4:22 PM DIGITAL CONTENT [place] [address] Blood VENOUS BLOOD SPECIMEN / Unknown Venipuncture / Unknown 12/11/2024 3:43 PM DIGITAL CONTENT MARKETING MANAGER 12/11/2024 3:45 PM DIGITAL CONTENT MARKETING MANAGER us Ceicle Pascual P.A. LAB CHEMISTRY ORDERABLES F inal Result [place] [id number] [place] [address] from Last 3 Months Insurance [employer] [place] [address] Care Teams Librarian Helper Relationship Specialty Start Date End Date Pcp, Other Patient has a PCP, but uncertain who PCP - General 12/11/24 Cecile Pascual P.A. [address] [place] [address] Referring Provider Internal Medicine 12/11/24
--- OUTSIDE RECORDS SUMMARY | 2024-12-13 13:10 | XMS_ITS | Encounter Summary ---
Author Organization [facility] Address [address] [place] [address] Care Team Providers Care Account Associate Name Role Phone Pcp, Other Primary Care Provider Cecile Díaz Unavailable [phone] Encounter Details Date Type Department Care Team (Late st Contact Info) Description 08/17/2017 Amberly Historical EDM Scans [place] - Conversion Department - [facility] Medicine Provider, Amberly Historical Social History Tobacco Use Types Packs/Day Years Used Date Smoking Tobacco: Never Assessed Comments Unknown Sex and Gender Information Value Date Recorded Sex Assigned at Female 12/11/2024 3:31 PM DIRECTOR E LEARNING Legal Sex Female 7:02 PM DIRECTOR E LEARNING Gender Identity Male 12/11/2024 3:31 PM DIRECTOR E LEARNING Sexual Orientation Not on file documented as of this encounter Plan of Treatment Not on file documented as of this encounter Procedures Procedure Name Priority Date/Time Associated Diagnosis Comments MISC ORDERS SCAN 08/17/2017 MISC ORDERS SCAN 08/17/2017 LABS SCAN 08/17/2017 CARDIAC STRIPS OR TRACINGS SCAN 08/17/2017 documented in this encounter Results * CARDIAC STRIPS OR TRACINGS SCAN (08/17/2017) Narrative 08/17/2017 Ordered by an unspecified provider. us [place] Historical Provider SCANNED EXTERNAL RES ULT Final Result * MISC ORDERS SCAN (08/17/2017) Narrative 08/17/2017 Ordered by an unspecified provider. us [place] Historical Provider SCANNED EXTERNAL RES ULT Final Result * MISC ORDERS SCAN (08/17/2017) Narrative 08/17/2017 Ordered by an unspecified provider. us [place] Historical Provider SCANNED EXTERNAL RES ULT Final Result * LABS SCAN (08/17/2017) Narrative 08/17/2017 Ordered by an unspecified provider. us [place] Historical Provider SCANNED EXTERNAL RES ULT Final Result documented in this encounter Visit Diagnoses Not on filedocumented in this encounter Care Teams Account Associate Relationship Specialty Start Date End Date Pcp, Other Patient has a PCP, but uncertain who PCP - General 12/11/24 Cecile Pascual P.A. [address] [place] [address] Referring Provider Internal Medicine 12/11/24 documented as of this encounter
--- OUTSIDE RECORDS SUMMARY | 2024-12-13 13:10 | XMS_ITS | Encounter Summary ---
Author Organization [facility] Address [address] [place] [address] Care Team Providers Care Braille Coder Name Role Phone Pcp, Other Primary Care Provider Unavailabl e Cecile Pascual Unavailable [phone] Encounter Details Date Type Department Care Team (Late st Contact Info) Description 02/11/2020 [place] Historical EDM Scans [place] - Conversion Department - [facility] Medicine Provider, Amberly Historical Social History Tobacco Use Types Packs/Day Years Used Date Smoking Tobacco: Never Assessed Comments Unknown Sex and Gender Information Value Date Recorded Sex Assigned at Female 12/11/2024 3:31 PM OCEAN LIFEGUARD Legal Sex Female 7:02 PM OCEAN LIFEGUARD Gender Identity Male 12/11/2024 3:31 PM OCEAN LIFEGUARD Sexual Orientation Not on file documented as of this encounter Plan of Treatment Not on file documented as of this encounter Procedures Procedure Name Priority Date/Time Associated Diagnosis Comments LABS SCAN 02/11/2020 documented in this encounter Results * LABS SCAN (02/11/2020) Narrative 02/11/2020 Ordered by an unspecified provider. us [place] Historical Provider SCANNED EXTERNAL RES ULT Final Result documented in this encounter Visit Diagnoses Not on filedocumented in this encounter Care Teams Braille Coder Relationship Specialty Start Date End Date Pcp, Other Patient has a PCP, but uncertain who PCP - General 12/11/24 Cecile Pascual P.A. [address] [place] [address] Referring Provider Internal Medicine 12/11/24 documented as of this encounter
--- OUTSIDE RECORDS SUMMARY | 2024-12-13 13:10 | XMS_ITS | Encounter Summary ---
Author Organization [facility] Address [address] [place] [address] Care Team Providers Care Aerosol Supervisor Name Role Phone Pcp, Other Primary Care Provider Unavailabl e Cecile Pascual Unavailable [phone] Encounter Details Date Type Department Care Team (Late st Contact Info) Description 03/09/2022 [place] Historical EDM Scans [place] - Conversion Department - [facility] Medicine ProviderAmberly Historical Social History Tobacco Use Types Packs/Day Years Used Date Smoking Tobacco: Never Assessed Comments Unknown Sex and Gender Information Value Date Recorded Sex Assigned at Female 12/11/2024 3:31 PM CRANKSHAFT BALANCER Legal Sex Female 7:02 PM CRANKSHAFT BALANCER Gender Identity Male 12/11/2024 3:31 PM CRANKSHAFT BALANCER Sexual Orientation Not on file documented as of this encounter Plan of Treatment Not on file documented as of this encounter Visit Diagnoses Not on filedocumented in this encounter Care Teams Aerosol Supervisor Relationship Specialty Start Date End Date Pcp, Other Patient has a PCP, but uncertain who PCP - General 12/11/24 Cecile Pascual P.A. [address] [place] [address] Referring Provider Internal Medicine 12/11/24 documented as of this encounter
--- OUTSIDE RECORDS SUMMARY | 2024-12-13 13:10 | XMS_ITS | Encounter Summary ---
Author Organization [facility] Address [address] [address] Care Team Providers Care Scheduler Name Role Phone Pcp, Other Primary Care Provider Cecile Díaz Unavailable [phone] Encounter Details Date Type Department Care Team (Late st Contact Info) Description 05/11/2020 [place] Historical EDM Scans [place] - Conversion Department - [facility] Medicine Provider, Amberly Historical Social History Tobacco Use Types Packs/Day Years Used Date Smoking Tobacco: Never Assessed Comments Unknown Sex and Gender Information Value Date Recorded Sex Assigned at Female 12/11/2024 3:31 PM EDITORIAL WRITER Legal Sex Female 7:02 PM EDITORIAL WRITER Gender Identity Male 12/11/2024 3:31 PM EDITORIAL WRITER Sexual Orientation Not on file documented as of this encounter Plan of Treatment Not on file documented as of this encounter Procedures Procedure Name Priority Date/Time Associated Diagnosis Comments RADIOLOGY SCAN 05/11/2020 LABS SCAN 05/11/2020 documented in this encounter Results * LABS SCAN (05/11/2020) Narrative 05/11/2020 Ordered by an unspecified provider. [place] Historical Provider SCANNED EXTERNAL RES ULT Final Result * RADIOLOGY SCAN (05/11/2020) Anatomical Region Laterality Modality Other Narrative 05/11/2020 Ordered by an unspecified provider. [place] Historical Provider SCANNED EXTERNAL RES ULT Final Result documented in this encounter Visit Diagnoses Not on filedocumented in this encounter Care Teams Scheduler Relationship Specialty Start Date End Date Pcp, Other Patient has a PCP, but uncertain who PCP - General 12/11/24 Cecile Pascual P.A. [address] [place] [address] Referring Provider Internal Medicine 12/11/24 documented as of this encounter
--- OUTSIDE RECORDS SUMMARY | 2024-12-13 13:10 | XMS_ITS | Encounter Summary ---
Author Organization [facility] Address [address] [place] [address] Care Team Providers Care Retail Pharmacy Manager Name Role Phone Pcp, Other Primary Care Provider Unavailabl e Cecile Pascual Unavailable [phone] Encounter Details Date Type Department Care Team (Late st Contact Info) Description 01/13/2016 [place] Historical EDM Scans [place] - Conversion Department - [facility] Medicine ProviderAmberly Historical Social History Tobacco Use Types Packs/Day Years Used Date Smoking Tobacco: Never Assessed Comments Unknown Sex and Gender Information Value Date Recorded Sex Assigned at Female 12/11/2024 3:31 PM CHARITY FUNDRAISER Legal Sex Female 7:02 PM CHARITY FUNDRAISER Gender Identity Male 12/11/2024 3:31 PM CHARITY FUNDRAISER Sexual Orientation Not on file documented as of this encounter Plan of Treatment Not on file documented as of this encounter Visit Diagnoses Not on filedocumented in this encounter Care Teams Retail Pharmacy Manager Relationship Specialty Start Date End Date Pcp, Other Patient has a PCP, but uncertain who PCP - General 12/11/24 Cecile Pascual P.A. [address] [place] [address] Referring Provider Internal Medicine 12/11/24 documented as of this encounter
--- OUTSIDE RECORDS SUMMARY | 2024-12-13 13:10 | XMS_ITS | Encounter Summary ---
Author Organization [facility] Address [address] [address] Care Team Providers Care Senior Buyer Planner Name Role Phone Pcp, Other Primary Care Provider Cecile Díaz Unavailable [phone] Encounter Details Date Type Department Care Team (Late st Contact Info) Description 08/03/2017 [place] Historical EDM Scans [place] - Conversion Department - [facility] Medicine Provider, Amberly Mena Social History Tobacco Use Types Packs/Day Years Used Date Smoking Tobacco: Never Assessed Comments Unknown Sex and Gender Information Value Date Recorded Sex Assigned at Female 12/11/2024 3:31 PM SATELLITE DISH REPAIRER Legal Sex Female 7:02 PM SATELLITE DISH REPAIRER Gender Identity Male 12/11/2024 3:31 PM SATELLITE DISH REPAIRER Sexual Orientation Not on file documented as of this encounter Plan of Treatment Not on file documented as of this encounter Procedures Procedure Name Priority Date/Time Associated Diagnosis Comments RADIOLOGY SCAN 08/03/2017 LABS SCAN 08/03/2017 documented in this encounter Results * LABS SCAN (08/03/2017) Narrative 08/03/2017 Ordered by an unspecified provider. [place] Historical Provider SCANNED EXTERNAL RES ULT Final Result * RADIOLOGY SCAN (08/03/2017) Anatomical Region Laterality Modality Other Narrative 08/03/2017 Ordered by an unspecified provider. [place] Historical Provider SCANNED EXTERNAL RES ULT Final Result documented in this encounter Visit Diagnoses Not on filedocumented in this encounter Care Teams Senior Buyer Planner Relationship Specialty Start Date End Date Pcp, Other Patient has a PCP, but uncertain who PCP - General 12/11/24 Cecile Pascual P.A. [address] [place] [address] Referring Provider Internal Medicine 12/11/24 documented as of this encounter
--- OUTSIDE RECORDS SUMMARY | 2024-12-13 13:10 | XMS_ITS | Encounter Summary ---
Author Organization [facility] Address [address] [place] [address] Care Team Providers Care Bobbin Inspector Name Role Phone Pcp, Other Primary Care Provider Unavailabl e Cecile Pascual Unavailable [phone] Encounter Details Date Type Department Care Team (Late st Contact Info) Description 03/09/2022 [place] Historical EDM Scans [place] - Conversion Department - [facility] Medicine ProviderAmberly Historical Social History Tobacco Use Types Packs/Day Years Used Date Smoking Tobacco: Never Assessed Comments Unknown Sex and Gender Information Value Date Recorded Sex Assigned at Female 12/11/2024 3:31 PM BATTERY STARTER Legal Sex Female 7:02 PM BATTERY STARTER Gender Identity Male 12/11/2024 3:31 PM BATTERY STARTER Sexual Orientation Not on file documented as of this encounter Plan of Treatment Not on file documented as of this encounter Visit Diagnoses Not on filedocumented in this encounter Care Teams Bobbin Inspector Relationship Specialty Start Date End Date Pcp, Other Patient has a PCP, but uncertain who PCP - General 12/11/24 Cecile Pascual P.A. [address] [place] [address] Referring Provider Internal Medicine 12/11/24 documented as of this encounter
--- OUTSIDE RECORDS SUMMARY | 2024-12-13 13:10 | XMS_ITS | Encounter Summary ---
Author Organization [facility] Address [address] [place] [address] Care Team Providers Care Type Caster Name Role Phone Pcp, Other Primary Care Provider Unavailabl e Cecile Pascual Unavailable [phone] Encounter Details Date Type Department Care Team (Late st Contact Info) Description 03/08/2022 [place] Historical EDM Scans [place] - Conversion Department - [facility] Medicine ProviderAmberly Historical Social History Tobacco Use Types Packs/Day Years Used Date Smoking Tobacco: Never Assessed Comments Unknown Sex and Gender Information Value Date Recorded Sex Assigned at Female 12/11/2024 3:31 PM CERTIFIED NURSE PRACTITIONER Legal Sex Female 7:02 PM CERTIFIED NURSE PRACTITIONER Gender Identity Male 12/11/2024 3:31 PM CERTIFIED NURSE PRACTITIONER Sexual Orientation Not on file documented as of this encounter Plan of Treatment Not on file documented as of this encounter Visit Diagnoses Not on filedocumented in this encounter Care Teams Type Caster Relationship Specialty Start Date End Date Pcp, Other Patient has a PCP, but uncertain who PCP - General 12/11/24 Cecile Pascual P.A. [address] [place] [address] Referring Provider Internal Medicine 12/11/24 documented as of this encounter
--- OUTSIDE RECORDS SUMMARY | 2024-12-13 13:10 | XMS_ITS | Encounter Summary ---
Author Organization [facility] Address [address] [place] [address] Care Team Providers Care Band Booker Name Role Phone Pcp, Other Primary Care Provider Unavailabl e Cecile Pascual Unavailable [phone] Encounter Details Date Type Department Care Team (Late st Contact Info) Description 04/16/2017 [place] Historical EDM Scans [place] - Conversion Department - [facility] Medicine ProviderAmberly Historical Social History Tobacco Use Types Packs/Day Years Used Date Smoking Tobacco: Never Assessed Comments Unknown Sex and Gender Information Value Date Recorded Sex Assigned at Female 12/11/2024 3:31 PM BUILDING ATTENDANT Legal Sex Female 7:02 PM BUILDING ATTENDANT Gender Identity Male 12/11/2024 3:31 PM BUILDING ATTENDANT Sexual Orientation Not on file documented as of this encounter Plan of Treatment Not on file documented as of this encounter Visit Diagnoses Not on filedocumented in this encounter Care Teams Band Booker Relationship Specialty Start Date End Date Pcp, Other Patient has a PCP, but uncertain who PCP - General 12/11/24 Cecile Pascual P.A. [address] [place] [address] Referring Provider Internal Medicine 12/11/24 documented as of this encounter
--- OUTSIDE RECORDS SUMMARY | 2024-12-13 13:10 | XMS_ITS | Encounter Summary ---
Author Organization [facility] Address [address] [place] [address] Care Team Providers Care Employee Benefits Specialist Name Role Phone Pcp, Other Primary Care Provider Unavailabl e Cecile Pascual Unavailable [phone] Encounter Details Date Type Department Care Team (Late st Contact Info) Description 12/05/2018 [place] Historical EDM Scans [place] - Conversion Department - [facility] Medicine Provider, Amberly Historical Social History Tobacco Use Types Packs/Day Years Used Date Smoking Tobacco: Never Assessed Comments Unknown Sex and Gender Information Value Date Recorded Sex Assigned at Female 12/11/2024 3:31 PM COATING AND BAKING OPERATOR Legal Sex Female 7:02 PM COATING AND BAKING OPERATOR Gender Identity Male 12/11/2024 3:31 PM COATING AND BAKING OPERATOR Sexual Orientation Not on file documented as of this encounter Plan of Treatment Not on file documented as of this encounter Procedures Procedure Name Priority Date/Time Associated Diagnosis Comments LABS SCAN 12/05/2018 documented in this encounter Results * LABS SCAN (12/05/2018) Narrative 12/05/2018 Ordered by an unspecified provider. us [place] Historical Provider SCANNED EXTERNAL RES ULT Final Result documented in this encounter Visit Diagnoses Not on filedocumented in this encounter Care Teams Employee Benefits Specialist Relationship Specialty Start Date End Date Pcp, Other Patient has a PCP, but uncertain who PCP - General 12/11/24 Cecile Pascual P.A. [address] [place] [address] Referring Provider Internal Medicine 12/11/24 documented as of this encounter
--- OUTSIDE RECORDS SUMMARY | 2024-12-13 13:10 | XMS_ITS | Encounter Summary ---
Author Organization [facility] Address [address] [place] [address] Care Team Providers Care Dietitian Teacher Name Role Phone Pcp, Other Primary Care Provider Unavailabl e Cecile Pascual Unavailable [phone] Encounter Details Date Type Department Care Team (Late st Contact Info) Description 03/09/2022 [place] Historical EDM Scans [place] - Conversion Department - [facility] Medicine ProviderAmberly Historical Social History Tobacco Use Types Packs/Day Years Used Date Smoking Tobacco: Never Assessed Comments Unknown Sex and Gender Information Value Date Recorded Sex Assigned at Female 12/11/2024 3:31 PM SOLAR CONSULTANT Legal Sex Female 7:02 PM SOLAR CONSULTANT Gender Identity Male 12/11/2024 3:31 PM SOLAR CONSULTANT Sexual Orientation Not on file documented as of this encounter Plan of Treatment Not on file documented as of this encounter Visit Diagnoses Not on filedocumented in this encounter Care Teams Dietitian Teacher Relationship Specialty Start Date End Date Pcp, Other Patient has a PCP, but uncertain who PCP - General 12/11/24 Cecile Pascual P.A. [address] [place] [address] Referring Provider Internal Medicine 12/11/24 documented as of this encounter
--- OUTSIDE RECORDS SUMMARY | 2024-12-13 13:10 | XMS_ITS | Encounter Summary ---
Author Organization [facility] Address [address] [place] [address] Care Team Providers Care Academic Physician Name Role Phone Pcp, Other Primary Care Provider Unavailabl e Cecile Pascual Unavailable [phone] Encounter Details Date Type Department Care Team (Late st Contact Info) Description 05/19/2017 [place] Historical EDM Scans [place] - Conversion Department - [facility] Medicine ProviderAmberly Historical Social History Tobacco Use Types Packs/Day Years Used Date Smoking Tobacco: Never Assessed Comments Unknown Sex and Gender Information Value Date Recorded Sex Assigned at Female 12/11/2024 3:31 PM SCRATCH POLISHER Legal Sex Female 7:02 PM SCRATCH POLISHER Gender Identity Male 12/11/2024 3:31 PM SCRATCH POLISHER Sexual Orientation Not on file documented as of this encounter Plan of Treatment Not on file documented as of this encounter Visit Diagnoses Not on filedocumented in this encounter Care Teams Academic Physician Relationship Specialty Start Date End Date Pcp, Other Patient has a PCP, but uncertain who PCP - General 12/11/24 Cecile aPscual P.A. [address] [place] [address] Referring Provider Internal Medicine 12/11/24 documented as of this encounter
--- OUTSIDE RECORDS SUMMARY | 2024-12-13 13:10 | XMS_ITS | Encounter Summary ---
Author Organization [facility] Address [address] [place] [address] Care Team Providers Care Data Miner Name Role Phone Pcp, Other Primary Care Provider Unavailabl e Cecile Pascual Unavailable [phone] Encounter Details Date Type Department Care Team (Late st Contact Info) Description 03/09/2022 [place] Historical EDM Scans [place] - Conversion Department - [facility] Medicine ProviderAmberly Historical Social History Tobacco Use Types Packs/Day Years Used Date Smoking Tobacco: Never Assessed Comments Unknown Sex and Gender Information Value Date Recorded Sex Assigned at Female 12/11/2024 3:31 PM PANEL CUTTER Legal Sex Female 7:02 PM PANEL CUTTER Gender Identity Male 12/11/2024 3:31 PM PANEL CUTTER Sexual Orientation Not on file documented as of this encounter Plan of Treatment Not on file documented as of this encounter Visit Diagnoses Not on filedocumented in this encounter Care Teams Data Miner Relationship Specialty Start Date End Date Pcp, Other Patient has a PCP, but uncertain who PCP - General 12/11/24 Cecile Pascual P.A. [address] [place] [address] Referring Provider Internal Medicine 12/11/24 documented as of this encounter
--- OUTSIDE RECORDS SUMMARY | 2024-12-13 13:10 | XMS_ITS | Encounter Summary ---
Author Organization [facility] Address [address] [address] Care Team Providers Care Street Light Servicer Helper Name Role Phone Pcp, Other Primary Care Provider Cecile Díaz Unavailable [phone] Encounter Details Date Type Department Care Team (Late st Contact Info) Description 08/21/2018 [place] Historical EDM Scans [place] - Conversion Department - [facility] Medicine Provider, Amberly Historical Social History Tobacco Use Types Packs/Day Years Used Date Smoking Tobacco: Never Assessed Comments Unknown Sex and Gender Information Value Date Recorded Sex Assigned at Female 12/11/2024 3:31 PM MANAGER INTERVENTIONAL Legal Sex Female 7:02 PM MANAGER INTERVENTIONAL Gender Identity Male 12/11/2024 3:31 PM MANAGER INTERVENTIONAL Sexual Orientation Not on file documented as of this encounter Plan of Treatment Not on file documented as of this encounter Procedures Procedure Name Priority Date/Time Associated Diagnosis Comments RADIOLOGY SCAN 08/21/2018 LABS SCAN 08/21/2018 LABS SCAN 08/21/2018 documented in this encounter Results * LABS SCAN (08/21/2018) Narrative 08/21/2018 Ordered by an unspecified provider. [facility] Provider SCANNED EXTERNAL RES ULT Final Result * LABS SCAN (08/21/2018) Narrative 08/21/2018 Ordered by an unspecified provider. [facility] Provider SCANNED EXTERNAL RES ULT Final Result * RADIOLOGY SCAN (08/21/2018) Anatomical Region Laterality Modality Other Narrative 08/21/2018 Ordered by an unspecified provider. [place] Historical Provider SCANNED EXTERNAL RES ULT Final Result documented in this encounter Visit Diagnoses Not on filedocumented in this encounter Care Teams Street Light Servicer Helper Relationship Specialty Start Date End Date Pcp, Other Patient has a PCP, but uncertain who PCP - General 12/11/24 Cecile Pascual P.A. [address] [place] [address] Referring Provider Internal Medicine 12/11/24 documented as of this encounter
--- OUTSIDE RECORDS SUMMARY | 2024-12-13 13:10 | XMS_ITS | Encounter Summary ---
Author Organization [facility] Address [address] [address] Care Team Providers Care Pre K Teacher Name Role Phone Pcp, Other Primary Care Provider Cecile Díaz Unavailable Encounter Details Date Type Department Care Team (Late st Contact Info) Description 08/01/2017 [place] Historical EDM Scans [place] - Conversion Department - [facility] Medicine Provider, Amberly Mena Social History Tobacco Use Types Packs/Day Years Used Date Smoking Tobacco: Never Assessed Comments Unknown Sex and Gender Information Value Date Recorded Sex Assigned at Female 12/11/2024 3:31 PM ELECTROTYPER APPRENTICE Legal Sex Female 7:02 PM ELECTROTYPER APPRENTICE Gender Identity Male 12/11/2024 3:31 PM ELECTROTYPER APPRENTICE Sexual Orientation Not on file documented as of this encounter Plan of Treatment Not on file documented as of this encounter Procedures Procedure Name Priority Date/Time Associated Diagnosis Comments RADIOLOGY SCAN 08/01/2017 LABS SCAN 08/01/2017 documented in this encounter Results * LABS SCAN (08/01/2017) Narrative 08/01/2017 Ordered by an unspecified provider. [place] Historical Provider SCANNED EXTERNAL RES ULT Final Result * RADIOLOGY SCAN (08/01/2017) Anatomical Region Laterality Modality Other Narrative 08/01/2017 Ordered by an unspecified provider. [place] Historical Provider SCANNED EXTERNAL RES ULT Final Result documented in this encounter Visit Diagnoses Not on filedocumented in this encounter Care Teams Pre K Teacher Relationship Specialty Start Date End Date Pcp, Other Patient has a PCP, but uncertain who PCP - General 12/11/24 Cecile Pascual P.A. [address] [place] [address] Referring Provider Internal Medicine 12/11/24 documented as of this encounter
--- OUTSIDE RECORDS SUMMARY | 2024-12-13 13:10 | XMS_ITS | Encounter Summary ---
Author Organization [facility] Address [address] [place] [address] Care Team Providers Care Dairy Farmer Name Role Phone Pcp, Other Primary Care Provider Unavailchristian e Cecile Pascual Unavailable [phone] Encounter Details Date Type Department Care Team (Late st Contact Info) Description 01/26/2016 [place] Historical EDM Scans [place] - Conversion Department - [facility] Medicine ProviderAmberly Historical Social History Tobacco Use Types Packs/Day Years Used Date Smoking Tobacco: Never Assessed Comments Unknown Sex and Gender Information Value Date Recorded Sex Assigned at Female 12/11/2024 3:31 PM CORROSION TECHNICIAN Legal Sex Female 7:02 PM CORROSION TECHNICIAN Gender Identity Male 12/11/2024 3:31 PM CORROSION TECHNICIAN Sexual Orientation Not on file documented as of this encounter Plan of Treatment Not on file documented as of this encounter Visit Diagnoses Not on filedocumented in this encounter Care Teams Dairy Farmer Relationship Specialty Start Date End Date Pcp, Other Patient has a PCP, but uncertain who PCP - General 12/11/24 Cecile Pascual P.A. [address] [place] [address] Referring Provider Internal Medicine 12/11/24 documented as of this encounter
--- OUTSIDE RECORDS SUMMARY | 2024-12-13 13:10 | XMS_ITS | Encounter Summary ---
Author Organization [facility] Address [address] [place] [address] Care Team Providers Care Assistant Passenger Locomotive Engineer Name Role Phone Pcp, Other Primary Care Provider Cecile Díaz Unavailable [phone] Encounter Details Date Type Department Care Team (Late st Contact Info) Description 03/09/2022 [place] Historical EDM Scans [place] - Conversion Department - [facility] Medicine ProviderAmberly Historical Social History Tobacco Use Types Packs/Day Years Used Date Smoking Tobacco: Never Assessed Comments Unknown Sex and Gender Information Value Date Recorded Sex Assigned at Female 12/11/2024 3:31 PM RADIOLOGY ADMINISTRATOR Legal Sex Female 7:02 PM RADIOLOGY ADMINISTRATOR Gender Identity Male 12/11/2024 3:31 PM RADIOLOGY ADMINISTRATOR Sexual Orientation Not on file documented as of this encounter Plan of Treatment Not on file documented as of this encounter Procedures Procedure Name Priority Date/Time Associated Diagnosis Comments RADIOLOGY SCAN 03/09/2022 MISC ORDERS SCAN 03/09/2022 MISC ORDERS SCAN 03/09/2022 MISC ORDERS SCAN 03/09/2022 MISC ORDERS SCAN 03/09/2022 LABS SCAN 03/09/2022 documented in this encounter Results * MISC ORDERS SCAN (03/09/2022) Narrative 03/09/2022 Ordered by an unspecified provider. [facility] Historical Provider SCANNED EXTERNAL RES ULT Final Result * MISC ORDERS SCAN (03/09/2022) Narrative 03/09/2022 Ordered by an unspecified provider. [facility] Provider SCANNED EXTERNAL RES ULT Final Result * MISC ORDERS SCAN (03/09/2022) Narrative 03/09/2022 Ordered by an unspecified provider. [facility] Provider SCANNED EXTERNAL RES ULT Final Result * MISC ORDERS SCAN (03/09/2022) Narrative 03/09/2022 Ordered by an unspecified provider. [facility] Provider SCANNED EXTERNAL RES ULT Final Result * LABS SCAN (03/09/2022) Narrative 03/09/2022 Ordered by an unspecified provider. Result [facility] Provider SCANNED EXTERNAL RES ULT Final Result * RADIOLOGY SCAN (03/09/2022) Anatomical Region Laterality Modality Other Narrative 03/09/2022 Ordered by an unspecified provider. Result [facility] Provider SCANNED EXTERNAL RES ULT Final Result documented in this encounter Visit Diagnoses Not on filedocumented in this encounter Care Teams Assistant Passenger Locomotive Engineer Relationship Specialty Start Date End Date Pcp, Other Patient has a PCP, but uncertain who PCP - General 12/11/24 Cecile Pascual P.A. [address] [place] [address] Referring Provider Internal Medicine 12/11/24 documented as of this encounter
--- OUTSIDE RECORDS SUMMARY | 2024-12-13 13:10 | XMS_ITS | Encounter Summary ---
Author Organization [facility] Address [address] [place] [place] [address] Care Team Providers Care Emergency Medical Service Manager Name Role Phone Pcp, Other Primary Care Provider Unavailabl e Cecile Pascual Unavailable [phone] Encounter Details Date Type Department Care Team (Late st Contact Info) Description 08/26/2020 Frederic Historical EDM Scans [place] - Conversion Department - [facility] Medicine Provider, Amberly Historical Social History Tobacco Use Types Packs/Day Years Used Date Smoking Tobacco: Never Assessed Comments Unknown Sex and Gender Information Value Date Recorded Sex Assigned at Female 12/11/2024 3:31 PM LIVESTOCK BUYER Legal Sex Female 7:02 PM LIVESTOCK BUYER Gender Identity Male 12/11/2024 3:31 PM LIVESTOCK BUYER Sexual Orientation Not on file documented as of this encounter Plan of Treatment Not on file documented as of this encounter Procedures Procedure Name Priority Date/Time Associated Diagnosis Comments LABS SCAN 08/26/2020 documented in this encounter Results * LABS SCAN (08/26/2020) Narrative 08/26/2020 Ordered by an unspecified provider. us Amberly Historical Provider SCANNED EXTERNAL RES ULT Final Result documented in this encounter Visit Diagnoses Not on filedocumented in this encounter Care Teams Emergency Medical Service Manager Relationship Specialty Start Date End Date Pcp, Other Patient has a PCP, but uncertain who PCP - General 12/11/24 Cecile Pascual P.A. [address] [place] [address] Referring Provider Internal Medicine 12/11/24 documented as of this encounter
[2024-12-13 13:21] LABS: Influenza A QL RT-PCR Positive (Negative); Influenza B QL RT-PCR Negative (Negative); RSV RNA, RT-PCR Negative (Negative); SARS-CoV-2 RNA PCR Negative (Negative)
--- NOTE | 2024-12-13 13:51 | ED_ITS ---
HPI - URI/Sore Throat General Chief Complaint: Upper Respiratory Infection Stated Complaint: URI s/s Time Seen by Provider: 12/13/24 13:26 History of Present Illness HPI Narrative: 39-year-old otherwise healthy female presenting to the emergency room with chief complaint of upper respiratory infection symptoms and a sore throat. She was otherwise in her normal state of health but has had sick contacts in the environment. Endorses a cough that is nonproductive, throat soreness and m yalgias. Reports congestion symptoms. Has taken some Delsym, but no other symptom controlling medications. Was otherwise in her normal state of health. Denies any other symptoms such as difficulty in breathing or chest discomfort. Related Data Allergies Allergy/AdvReac Type Severity Reaction Status Date / Time No Known Allergies Allergy Verified 12/13/24 12:34 Review of Systems Review of Systems: As reviewed above in HPI PMFSH Past Medical History Medical History No active medical problems Social History Social History Alcohol intake: current Substance use: never Exam Narrative: GENERAL: [Well-appearing, well-nourished, and in no acute distress.] HEAD: [Normocephalic, atraumatic.] EYES: [PERRLA and EOMI.] ENT: Nares clear, no rhinorrhea or epistaxis. Mucous membranes moist. NECK: Supple. CHEST: [Clear to auscultation. No respiratory distress.] HEART: [Regular rate and rhythm]. No murmur heard. [Normal peripheral pulses.] ABDOMEN: [Soft, nondistended], [nontender], [No rigidity or guarding] EXTREMITIES: Normal range of motion. [No edema.] SKIN: Warm, dry, no rash. NEURO: [No focal deficits]. Alert and oriented [x3.] PSYCH: [Normal mood and affect.] Course Vital Signs Vital signs: Vital Signs Temperature 37.2 C 12/13/24 12:30 Pulse Rate 73 12/13/24 12:30 Respiratory Rate 18 12/13/24 12:30 Blood Pressure 125/72 12/13/24 12:30 Pulse Oximetry 100 12/13/24 12:30 Oxygen Delivery Room Air 12/13/24 12:30 Temperature 37.2 C 12/13/24 12:30 Pulse Rate 73 12/13/24 12:30 Respiratory Rate 18 12/13/24 12:30 Blood Pressure 125/72 12/13/24 12:30 Pulse Oximetry 100 12/13/24 12:30 Oxygen Delivery Room Air 12/13/24 13:30 MDM - URI/Sore Throat MDM Narrative Medical decision making narrative: 39-year-old female presenting with flu-like symptoms. She was otherwise in her normal state of health, started having cough congestion sore throat yesterday. Has taken some mild ksmg-dzl-[id number] medications without symptom control. She did test positive for influenza. Clear breath sounds throughout with any signs of tachypnea respiratory effort increased. No pneumonia symptoms. Normal blood pressure, no tachycardia, fever or hypoxia. Patient will be discharged home and we did discuss options for medications and she would like to pursue Tamiflu therapy even though we talked about the risks and benefits of this medication shortening the duration but also possibly having side effects including GI distress and upset. Patient like to pursue this medication and was given a script for this as well as benzonatate for the cough and Zofran for any nausea. Medical Records Attestation: I reviewed the patient's medical records. Lab Data Attestation: I reviewed the patient's lab results. Labs: Lab Results 12/13/24 Range/Units 12:36 Influenza A (RT-PCR) Positive A (Negative) Influenza B (RT-PCR) Negative (Negative) RSV (RT-PCR) Negative (Negative) SARS-CoV-2 RNA (RT-PCR) Negative (Negative) Discharge Plan Discharge Clinical Impression: Influenza Patient Disposition: Home, Self-Care Condition: Stable Instructions: Antibiotic Form, Influenza (ED) Additional Instructions: Follow-up with your regular doctor. He will have influenza symptoms for approximately 5-7 days and we will send you home with symptom control medications in addition to Tamiflu at your request. Return with any new or worsening concerns such as inability to breathe, intractable fever despite therapy, profound nauseousness or difficulty tolerating p.o. intake. Patient Language: Portuguese Prescriptions: New benzonatate 200 mg capsule 200 mg PO TID PRN (Reason: cough) Qty: 20 0RF guaifenesin [Mucinex] 1,200 mg tablet extended release 12hr 1,200 mg PO Q12H Qty: 20 0RF ondansetron 4 mg tablet,disintegrating 4 mg PO Q8H PRN (Reason: nausea and vomiting) Qty: 10 0RF oseltamivir [Tamiflu] 75 mg capsule 75 mg PO Q12H 5 Days Qty: 10 0RF No Action benzonatate 200 mg capsule 200 mg PO TID PRN (Reason: cough) Qty: 20 0RF penicillin V potassium 500 mg tablet 500 mg PO Q12H 10 Days Qty: 20 0RF ondansetron 4 mg tablet,disintegrating 4 mg PO Q8H PRN (Reason: nausea and vomiting) Qty: 14 0RF omeprazole magnesium [Prilosec OTC] 20 mg tablet,delayed release (DR/EC) 20 mg PO DAILY 14 Days Qty: 14 0RF amoxicillin-pot clavulanate 875-125 mg tablet 1 tablet PO Q12H Qty: 14 0RF prednisone 20 mg tablet 40 mg PO DAILY 5 Days Qty: 10 0RF Follow-up/Referrals: UNKNOWN,DOCTOR [Primary Care Provider] - Time of Disposition: 13:55
--- OUTSIDE RECORDS SUMMARY | 2024-12-13 14:31 | XMS_ITS | Encounter Summary ---
Author Organization [facility] Address [address] [place] [address] Care Team Providers Care Production Control Pegboard Clerk Name Role Phone Pcp, Other Primary Care Provider Unavailabl e Cecile Pascual Unavailable [phone] Encounter Details Date Type Department Care Team (Late st Contact Info) Description 12/01/2020 Amberly Historical EDM Scans Amberly - Conversion Department - [facility] Medicine ProviderAmberly Historical Social History Tobacco Use Types Packs/Day Years Used Date Smoking Tobacco: Never Assessed Comments Unknown Sex and Gender Information Value Date Recorded Sex Assigned at Female 12/11/2024 3:31 PM CLOTH BLEACHING RANGE TENDER Legal Sex Female 7:02 PM CLOTH BLEACHING RANGE TENDER Gender Identity Male 12/11/2024 3:31 PM CLOTH BLEACHING RANGE TENDER Sexual Orientation Not on file documented as of this encounter Plan of Treatment Not on file documented as of this encounter Visit Diagnoses Not on filedocumented in this encounter Care Teams Production Control Pegboard Clerk Relationship Specialty Start Date End Date Pcp, Other Patient has a PCP, but uncertain who PCP - General 12/11/24 Cecile Pascual P.A. [address] [place] [address] Referring Provider Internal Medicine 12/11/24 documented as of this encounter
--- OUTSIDE RECORDS SUMMARY | 2024-12-13 14:31 | XMS_ITS | Encounter Summary ---
Author Organization [facility] Address [address] [address] Care Team Providers Care Director Of Education Name Role Phone Pcp, Other Primary Care Provider Cecile Díaz Unavailable [phone] Encounter Details Date Type Department Care Team (Late st Contact Info) Description 11/02/2020 Amberly Historical EDM Scans [place] - Conversion Department - [facility] Medicine Provider, Amberly Historical Social History Tobacco Use Types Packs/Day Years Used Date Smoking Tobacco: Never Assessed Comments Unknown Sex and Gender Information Value Date Recorded Sex Assigned at Female 12/11/2024 3:31 PM VESSEL ORDINARY SEAMAN Legal Sex Female 7:02 PM VESSEL ORDINARY SEAMAN Gender Identity Male 12/11/2024 3:31 PM VESSEL ORDINARY SEAMAN Sexual Orientation Not on file documented as of this encounter Plan of Treatment Not on file documented as of this encounter Procedures Procedure Name Priority Date/Time Associated Diagnosis Comments RADIOLOGY SCAN 11/02/2020 LABS SCAN 11/02/2020 documented in this encounter Results * LABS SCAN (11/02/2020) Narrative 11/02/2020 Ordered by an unspecified provider. [facility] Provider SCANNED EXTERNAL RES ULT Final Result * RADIOLOGY SCAN (11/02/2020) Anatomical Region Laterality Modality Other Narrative 11/02/2020 Ordered by an unspecified provider. [facility] Provider SCANNED EXTERNAL RES ULT Final Result documented in this encounter Visit Diagnoses Not on filedocumented in this encounter Care Teams Director Of Education Relationship Specialty Start Date End Date Pcp, Other Patient has a PCP, but uncertain who PCP - General 12/11/24 Cecile Pascual P.A. [address] [place] [address] Referring Provider Internal Medicine 12/11/24 documented as of this encounter
--- OUTSIDE RECORDS SUMMARY | 2024-12-13 14:31 | XMS_ITS | Referral Summary ---
Author Organization [facility] Address [address] [place] [address] Care Team Providers Care Early Childhood Director Name Role Phone Celio Cao MD Primary Care Provider [phone] Source Comments You are receiving this document as you are listed as the PCP, follow-upprovider, or the patient hasbeen referred to you for consultation. This is incompliance with [facility] Transitions of Care Requirement. Note: Specific treatmentrecords and notes about services for mental health, developmental disabilities,alcoholism, drug dependence, or substance abuse, you will need to contact theMedical Records Department at [phone] and complete a separate Release ofAuthorization form. They are also available to answer other questions.[facility] Allergies Active Allergy Reactions Criticality Noted Date [...] 81.6 kg (180 lb) 12/17/2023 1:42 PM FABRIC WORKER FITTER Height 162.6 cm (5' 4 ) 12/17/2023 1:42 PM FABRIC WORKER FITTER Body Mass Index 30.9 12/17/2023 1:42 PM FABRIC WORKER FITTER Plan of Treatment Not on file Care Teams Early Childhood Director Relationship Specialty Start Date End Date Celio Cao MD [address] [facility][[address]] [address] [place] [address] PCP - General 11/11/23
--- OUTSIDE RECORDS SUMMARY | 2024-12-13 14:31 | XMS_ITS | Encounter Summary ---
Author Organization [facility] Address [address] [place] [address] Care Team Providers Care Bisque Brusher Name Role Phone Pcp, Other Primary Care Provider Unavailabl e Cecile Pascual Unavailable [phone] Encounter Details Date Type Department Care Team (Late st Contact Info) Description 12/01/2020 Amberly Historical EDM Scans [place] - Conversion Department - [facility] Medicine Provider, Amberly Historical Social History Tobacco Use Types Packs/Day Years Used Date Smoking Tobacco: Never Assessed Comments Unknown Sex and Gender Information Value Date Recorded Sex Assigned at Female 12/11/2024 3:31 PM MEMS DEVICE SCIENTIST Legal Sex Female 7:02 PM MEMS DEVICE SCIENTIST Gender Identity Male 12/11/2024 3:31 PM MEMS DEVICE SCIENTIST Sexual Orientation Not on file documented as [...] on filedocumented in this encounter Care Teams Bisque Brusher Relationship Specialty Start Date End Date Pcp, Other Patient has a PCP, but uncertain who PCP - General 12/11/24 Cecile Pascual P.A. [address] [place] [address] Referring Provider Internal Medicine 12/11/24 documented as of this encounter
--- OUTSIDE RECORDS SUMMARY | 2024-12-13 14:31 | XMS_ITS | Encounter Summary ---
Author Organization [facility] Address [address] [place] [address] Care Team Providers Care Dredge Pumper Name Role Phone Pcp, Other Primary Care Provider Unavailabl e Cecile Pascual Unavailable [phone] Encounter Details Date Type Department Care Team (Late st Contact Info) Description 12/15/2020 Amberly Historical EDM Scans Amberly - Conversion Department - [facility] Medicine ProviderAmberly Historical Social History Tobacco Use Types Packs/Day Years Used Date Smoking Tobacco: Never Assessed Comments Unknown Sex and Gender Information Value Date Recorded Sex Assigned at Female 12/11/2024 3:31 PM WOOD DRILL OPERATOR Legal Sex Female 7:02 PM WOOD DRILL OPERATOR Gender Identity Male 12/11/2024 3:31 PM WOOD DRILL OPERATOR Sexual Orientation Not on file documented as of this encounter Plan of Treatment Not on file documented as of this encounter Visit Diagnoses Not on filedocumented in this encounter Care Teams Dredge Pumper Relationship Specialty Start Date End Date Pcp, Other Patient has a PCP, but uncertain who PCP - General 12/11/24 Cecile Pascual P.A. [address] [place] [address] Referring Provider Internal Medicine 12/11/24 documented as of this encounter
--- OUTSIDE RECORDS SUMMARY | 2024-12-13 14:31 | XMS_ITS | Encounter Summary ---
Author Organization [facility] Address [address] [place] [address] Care Team Providers Care Inspector Tester Sorter Name Role Phone Pcp, Other Primary Care Provider Unavailabl e Cecile Pascual Unavailable [phone] Encounter Details Date Type Department Care Team (Late st Contact Info) Description 03/09/2022 Amberly Historical EDM Scans Amberly - Conversion Department - [facility] Medicine ProviderAmberly Historical Social History Tobacco Use Types Packs/Day Years Used Date Smoking Tobacco: Never Assessed Comments Unknown Sex and Gender Information Value Date Recorded Sex Assigned at Female 12/11/2024 3:31 PM CHARTER DRIVER Legal Sex Female 7:02 PM CHARTER DRIVER Gender Identity Male 12/11/2024 3:31 PM CHARTER DRIVER Sexual Orientation Not on file documented as of this encounter Plan of Treatment Not on file documented as of this encounter Visit Diagnoses Not on filedocumented in this encounter Care Teams Inspector Tester Sorter Relationship Specialty Start Date End Date Pcp, Other Patient has a PCP, but uncertain who PCP - General 12/11/24 Cecile Pascual P.A. [address] [place] [address] Referring Provider Internal Medicine 12/11/24 documented as of this encounter
--- OUTSIDE RECORDS SUMMARY | 2024-12-13 14:31 | XMS_ITS | Encounter Summary ---
Author Organization [facility] Address [address] [place] [address] Care Team Providers Care Cyber Instructor Name Role Phone Pcp, Other Primary Care Provider Unavailabl e Cecile Pascual Unavailable Encounter Details Date Type Department Care Team (Late st Contact Info) Description 12/01/2020 Amberly Historical EDM Scans Amberly - Conversion Department - [facility] Medicine ProviderAmberly Historical Social History Tobacco Use Types Packs/Day Years Used Date Smoking Tobacco: Never Assessed Comments Unknown Sex and Gender Information Value Date Recorded Sex Assigned at Female 12/11/2024 3:31 PM BARREL BURNER Legal Sex Female 7:02 PM BARREL BURNER Gender Identity Male 12/11/2024 3:31 PM BARREL BURNER Sexual Orientation Not on file documented as of this encounter Plan of Treatment Not on file documented as of this encounter Visit Diagnoses Not on filedocumented in this encounter Care Teams Cyber Instructor Relationship Specialty Start Date End Date Pcp, Other Patient has a PCP, but uncertain who PCP - General 12/11/24 Cecile Pascual P.A. [address] [place] [address] Referring Provider Internal Medicine 12/11/24 documented as of this encounter
--- OUTSIDE RECORDS SUMMARY | 2024-12-13 14:31 | XMS_ITS | Encounter Summary ---
Author Organization [facility] Address [address] [place] [address] Care Team Providers Care Oil Well Service Operator Name Role Phone Pcp, Other Primary Care Provider Unavailabl e Cecile Pascual Unavailable [phone] Encounter Details Date Type Department Care Team (Late st Contact Info) Description 03/07/2022 Amberly Historical EDM Scans [place] - Conversion Department - [facility] Medicine ProviderAmberly Historical Social History Tobacco Use Types Packs/Day Years Used Date Smoking Tobacco: Never Assessed Comments Unknown Sex and Gender Information Value Date Recorded Sex Assigned at Female 12/11/2024 3:31 PM GENERAL MACHINIST Legal Sex Female 7:02 PM GENERAL MACHINIST Gender Identity Male 12/11/2024 3:31 PM GENERAL MACHINIST Sexual Orientation Not on file documented as of this encounter Plan of Treatment Not on file documented as of this encounter Visit Diagnoses Not on filedocumented in this encounter Care Teams Oil Well Service Operator Relationship Specialty Start Date End Date Pcp, Other Patient has a PCP, but uncertain who PCP - General 12/11/24 Cecile Pascual P.A. [address] [place] [address] Referring Provider Internal Medicine 12/11/24 documented as of this encounter
--- OUTSIDE RECORDS SUMMARY | 2024-12-13 14:31 | XMS_ITS | Encounter Summary ---
Author Organization [facility] Address [address] [place] [address] Care Team Providers Care Civil Structural Engineer Name Role Phone Pcp, Other Primary Care Provider Unavailabl e Cecile Pascual Unavailable [phone] Encounter Details Date Type Department Care Team (Late st Contact Info) Description 12/15/2020 Amberly Historical EDM Scans [place] - Conversion Department - [facility] Medicine Provider, Amberly Historical Social History Tobacco Use Types Packs/Day Years Used Date Smoking Tobacco: Never Assessed Comments Unknown Sex and Gender Information Value Date Recorded Sex Assigned at Female 12/11/2024 3:31 PM BAR USEFUL OR BUSSER Legal Sex Female 7:02 PM BAR USEFUL OR BUSSER Gender Identity Male 12/11/2024 3:31 PM BAR USEFUL OR BUSSER Sexual Orientation Not on file documented as [...] on filedocumented in this encounter Care Teams Civil Structural Engineer Relationship Specialty Start Date End Date Pcp, Other Patient has a PCP, but uncertain who PCP - General 12/11/24 Cecile Pascual P.A. [address] [place] [address] Referring Provider Internal Medicine 12/11/24 documented as of this encounter
--- OUTSIDE RECORDS SUMMARY | 2024-12-13 14:31 | XMS_ITS | Encounter Summary ---
Author Organization [facility] Address [address] [place] [address] Care Team Providers Care Lumber Inspector Name Role Phone Pcp, Other Primary Care Provider Unavailabl e Cecile Pascual Unavailable [phone] Encounter Details Date Type Department Care Team (Late st Contact Info) Description 03/09/2022 Amberly Historical EDM Scans Amber[place] - Conversion Department - [facility] Medicine ProviderAmberly Historical Social History Tobacco Use Types Packs/Day Years Used Date Smoking Tobacco: Never Assessed Comments Unknown Sex and Gender Information Value Date Recorded Sex Assigned at Female 12/11/2024 3:31 PM IRONER Legal Sex Female 7:02 PM IRONER Gender Identity Male 12/11/2024 3:31 PM IRONER Sexual Orientation Not on file documented as of this encounter Plan of Treatment Not on file documented as of this encounter Visit Diagnoses Not on filedocumented in this encounter Care Teams Lumber Inspector Relationship Specialty Start Date End Date Pcp, Other Patient has a PCP, but uncertain who PCP - General 12/11/24 Cecile Pascual P.A. [address] [place] [address] Referring Provider Internal Medicine 12/11/24 documented as of this encounter
--- OUTSIDE RECORDS SUMMARY | 2024-12-13 14:31 | XMS_ITS | Encounter Summary ---
Author Organization [facility] Address [address] [place] [address] Care Team Providers Care Development Planner Name Role Phone Pcp, Other Primary Care Provider Unavailabl e Cecile Pascual Unavailable [phone] Encounter Details Date Type Department Care Team (Late st Contact Info) Description 03/07/2022 Amberly Historical EDM Scans [place] - Conversion Department - [facility] Medicine ProviderAmberly Historical Social History Tobacco Use Types Packs/Day Years Used Date Smoking Tobacco: Never Assessed Comments Unknown Sex and Gender Information Value Date Recorded Sex Assigned at Female 12/11/2024 3:31 PM FUR TINTER Legal Sex Female 7:02 PM FUR TINTER Gender Identity Male 12/11/2024 3:31 PM FUR TINTER Sexual Orientation Not on file documented as of this encounter Plan of Treatment Not on file documented as of this encounter Visit Diagnoses Not on filedocumented in this encounter Care Teams Development Planner Relationship Specialty Start Date End Date Pcp, Other Patient has a PCP, but uncertain who PCP - General 12/11/24 Cecile Pascual P.A. [address] [place] [address] Referring Provider Internal Medicine 12/11/24 documented as of this encounter
--- OUTSIDE RECORDS SUMMARY | 2024-12-13 14:31 | XMS_ITS | Encounter Summary ---
Author Organization [facility] Address [address] [place] [address] Care Team Providers Care Tobacco Cutter Name Role Phone Pcp, Other Primary Care Provider Unavailabl e Cecile Pascual Unavailable [phone] Encounter Details Date Type Department Care Team (Late st Contact Info) Description 12/15/2020 Amberly Historical EDM Scans [place] - Conversion Department - [facility] Medicine ProviderAmberly Historical Social History Tobacco Use Types Packs/Day Years Used Date Smoking Tobacco: Never Assessed Comments Unknown Sex and Gender Information Value Date Recorded Sex Assigned at Female 12/11/2024 3:31 PM PLASMA CUTTING MACHINE OPERATOR Legal Sex Female 7:02 PM PLASMA CUTTING MACHINE OPERATOR Gender Identity Male 12/11/2024 3:31 PM PLASMA CUTTING MACHINE OPERATOR Sexual Orientation Not on file documented as of this encounter Plan of Treatment Not on file documented as of this encounter Visit Diagnoses Not on filedocumented in this encounter Care Teams Tobacco Cutter Relationship Specialty Start Date End Date Pcp, Other Patient has a PCP, but uncertain who PCP - General 12/11/24 Cecile Pascual P.A. [address] [place] [address] Referring Provider Internal Medicine 12/11/24 documented as of this encounter
--- OUTSIDE RECORDS SUMMARY | 2024-12-13 14:31 | XMS_ITS | Clinical Summary ---
Author Organization Health Address [address] [place] [address] Care Team Providers Care Edi Consultant Name Role Phone Enrique Love Primary Care Provider Sofía marrufo Allergies No known active allergies Medications No known medications Social History Tobacco Use Types Packs/Day Years Used Date Smoking Tobacco: Never Smokeless Tobacco: Never Alcohol Use Standard Drinks/Week Comments Not Currently 0 (1 standard drink = 0.6 oz pur e alcohol) PHQ-2 Answer Date Recorded Patient Health Questionnaire-2 Score 0 12/25/2020 [facility] - Occupational Stress Questionnaire Answer Date Recorded [...] on file Legal Sex Female 10:49 AM FILM AND VIDEO EDITOR Gender Identity Not on file Sexual Orientation Not on file Last Filed Vital Signs Vital Sign Reading Time Taken Comments Blood Pressure 133/85 12/25/2020 1:34 PM FILM AND VIDEO EDITOR Pulse 74 12/25/2020 1:34 PM FILM AND VIDEO EDITOR Temperature 36.5 C (97.7 F) 12/25/2020 1:34 PM FILM AND VIDEO EDITOR Respiratory Rate 20 12/25/2020 1:34 PM FILM AND VIDEO EDITOR Oxygen Saturation - - Inhaled Oxygen Concentration - - Weight 89.4 kg (197 lb) 12/25/2020 1:34 PM FILM AND VIDEO EDITOR Height 165.1 cm (5' 5 ) 12/25/2020 1:34 PM FILM AND VIDEO EDITOR Body Mass Index 32.78 12/25/2020 1:34 PM FILM AND VIDEO EDITOR Plan of Treatment Health Maintenance Due Date [...] complete this topic Insurance [employer] [employer] [place] Member Subscriber Plan / Payer (Ef fective 2018-Present) Name:Tomasa Curry Relation to Subscriber:Self Name:Tomasa Curry Payer ID:[id number] Group ID:Not on file Type:Not on file Address: ATTN: CLAIMS DEPARTMENT [address] [place] [address] Care Teams Edi Consultant Relationship Specialty Start Date End Date Enrique Love, NEGIN [address] [place] [address] PCP - General 06/24/20
--- OUTSIDE RECORDS SUMMARY | 2024-12-13 14:31 | XMS_ITS | Clinical Summary ---
Author Organization [facility] Address [address] [place] [address] Care Team Providers Care Superintendent Production Name Role Phone Celio Cao MD Primary Care Provider [phone] Source Comments You are receiving this document as you are listed as the PCP, follow-upprovider, or the patient hasbeen referred to you for consultation. This is incompliance with [facility] Transitions of Care Requirement. Note: Specific treatmentrecords and notes about services for mental health, developmental disabilities,alcoholism, drug dependence, or substance abuse, you will need to contact theMedical Records Department at [phone] and complete a separate Release ofAuthorization form. They are also available to answer other questions.[facility] Allergies Active Allergy Reactions Criticality Noted [...] 81.6 kg (180 lb) 12/17/2023 1:42 PM SWITCH COUPLER Height 162.6 cm (5' 4 ) 12/17/2023 1:42 PM SWITCH COUPLER Body Mass Index 30.9 12/17/2023 1:42 PM SWITCH COUPLER Plan of Treatment Health Maintenance Due Date [...] age to complete this topic Care Teams Superintendent Production Relationship Specialty Start Date End Date Celio Cao MD [address] [facility] [address] [place] [address] PCP - General 11/11/23
--- OUTSIDE RECORDS SUMMARY | 2024-12-13 14:32 | XMS_ITS | Referral Summary ---
Author Organization [facility] Address [address] [place] [address] Care Team Providers Care Group Contract Analyst Name Role Phone Celio Cao Primary Care Provider [phone] Allergies Active Allergy Reactions Criticality Noted Date [...] phone, visiting friends or family, going to zoroastrianism or club meetings) 3 to 5 times [...] on file Medical Devices Implanted Type Area Yard Spotter Device Identifier Shelf Expiration Date Model / Serial / Lot Substitute Bngf 6cc Fibergraft Med Bioactive - [id number] Implanted:Qty: 1 on 01/13/2023 by Deric Sinha MD at [facility] Filler Left: Leg Lower Depuy Synthes Spine 07/10/2027 [id number] / / [id number] Substitute Bngf 6cc Fibergraft Med Bioactive - [id number] Implanted:Qty: 1 on 01/13/2023 by Deric Sinha MD at [facility] Filler Left: Leg Lower Depuy Synthes Spine [id number] / / NA Plate Bn 131mm Tib Prox Posteromedial 6 Hole Lowprfl Lmt - [id number] Implanted:Qty: 1 on 01/13/2023 by Deric Sinha MD at [facility] Plate Left: Leg Lower Depuy Synthes Trauma 01/30/2025 02.120.706S / / [id number] Screw Bn 3.5mm 38mm 2.5mm Full Thrd Self Tap Lowprfl Sm Hex - [id number] Implanted:Qty: 2 on 01/13/2023 by Deric Sinha MD at [facility] Screw Left: Leg Lower Depuy Synthes Trauma 204.838 / / NA Screw Bn 4.5mm 65mm Full Thrd Cannulated Ti - [id number] Implanted:Qty: 1 on 01/13/2023 by Deric Sinha MD at [facility] Screw Left: Leg Lower [employer]uy Synthes Trauma 04.355.565 / / NA Screw Bn 3.5mm 70mm T15 Self Tap Lock Yola Ang Strdr Ss Ns - [id number] Implanted:Qty: 1 on 01/13/2023 by Deric Sinha MD at [facility] Screw Left: Leg Lower [employer]uy Synthes Trauma 02.127.170 / / NA Screw Bn 4mm 6mm 55mm 2.5mm Full Thrd Sm Hex Sckt Ss Ns Canc - [id number] Implanted:Qty: 1 on 01/13/2023 by Deric Sinha MD at [facility] Screw Left: Leg Lower [employer]uy Synthes Trauma 206.055 / / NA Screw Bn 3.5mm 2.9mm 60mm T15 Full Thrd Self Tap Lock Strdr - [id number] Implanted:Qty: 1 on 01/13/2023 by Deric Sinha MD at [facility] Screw Left: Leg Lower Depuy Synthes Trauma 212.124 / / NA Screw Bn 3.5mm 6mm 48mm 2.5mm Full Thrd Self Tap Lowprfl - [id number] Implanted:Qty: 1 on 01/13/2023 by Deric Sinha MD at [facility] Screw Left: Leg Lower Depuy Synthes Trauma 204.848 / / NA Screw Bn 4.5mm 75mm Full Thrd Cannulated Ti - [id number] Implanted:Qty: 1 on 01/13/2023 by Deric Sinha MD at [facility] Screw Left: Leg Lower Depuy Synthes Trauma 04.355.575 / / NA Screw Bn 4mm 6mm 35mm 2.5mm Full Thrd Sm Hex Sckt Ss Ns Canc - [id number] Implanted:Qty: 1 on 01/13/2023 by Deric Sinha MD at [facility] Screw Left: Leg Lower Depuy Synthes Trauma 206.035 / / [id number] Screw Bn 3.5mm 6mm 55mm 2.5mm Full Thrd Self Tap Lowprfl - [id number] Implanted:Qty: 1 on 01/13/2023 by Deric Sinha MD at [facility] Screw Left: Leg Lower Depuy Synthes Trauma 204.855 / / NA Screw Bn 3.5mm 2.9mm 55mm T15 Full Thrd Self Tap Lock Strdr - [id number] Implanted:Qty: 1 on 01/13/2023 by Deric Sinha MD at [facility] Screw Left: Leg Lower Depuy Synthes Trauma 212.123 / / NA Screw Bn 3.5mm 34mm 2.5mm Full Thrd Self Tap Lowprfl Sm Hex - [id number] Implanted:Qty: 1 on 01/13/2023 by Deric Sinha MD at [facility] Screw Left: Leg Lower Depuy Synthes Trauma 204.834 / / NA Allograft Growth Fctr 5cc - [id number] Implanted:Qty: 1 on 01/13/2023 by Deric Sinha MD at [facility] Tissue Left: Leg Lower [employer] 09/22/2027 [id number] / / [id number] Randal/Screws Description:Left leg Advance Directives * Full Resuscitation (Latest Code Status on File) Date Activated Date Inactivated Comments 01/13/2023 3:26 PM 01/14/2023 1:57 AM Care Teams Group Contract Analyst Relationship Specialty Start Date End Date Celio Cao DO [address] [place], [place] [address] PCP - General Family Practice 05/31/22
--- OUTSIDE RECORDS SUMMARY | 2024-12-13 14:32 | XMS_ITS | Encounter Summary ---
Author Organization [facility] Address [address] [place] [address] Care Team Providers Care Residential Director Name Role Phone Pcp, Other Primary Care Provider Cecile Díaz Unavailable [phone] Encounter Details Date Type Department Care Team (Late st Contact Info) Description 03/08/2022 [place] Historical EDM Scans [place] - Conversion Department - [facility] Medicine Provider, Amberly Historical Social History Tobacco Use Types Packs/Day Years Used Date Smoking Tobacco: Never Assessed Comments Unknown Sex and Gender Information Value Date Recorded Sex Assigned at Female 12/11/2024 3:31 PM INSIGHTS STRATEGIST Legal Sex Female 7:02 PM INSIGHTS STRATEGIST Gender Identity Male 12/11/2024 3:31 PM INSIGHTS STRATEGIST Sexual Orientation Not on file documented as [...] Narrative 03/08/2022 Ordered by an unspecified provider. [facility] Provider SCANNED EXTERNAL RES ULT Final Result * MISC ORDERS SCAN (03/08/2022) Narrative 03/08/2022 Ordered by an unspecified provider. [facility] Provider SCANNED EXTERNAL RES ULT Final Result * MISC ORDERS SCAN (03/08/2022) Narrative 03/08/2022 Ordered by an unspecified provider. Result [facility] Provider SCANNED EXTERNAL RES ULT Final Result * MISC ORDERS SCAN (03/08/2022) Narrative 03/08/2022 Ordered by an unspecified provider. [facility] Provider SCANNED EXTERNAL RES ULT Final Result * MISC ORDERS SCAN (03/08/2022) Narrative 03/08/2022 Ordered by an unspecified provider. Result [facility] Provider SCANNED EXTERNAL RES ULT Final Result * LABS SCAN (03/08/2022) Narrative 03/08/2022 Ordered by an unspecified provider. [facility] Provider SCANNED EXTERNAL RES ULT Final Result * LABS SCAN (03/08/2022) Narrative 03/08/2022 Ordered by an unspecified provider. [facility] Provider SCANNED EXTERNAL RES ULT Final Result * RADIOLOGY SCAN (03/08/2022) Anatomical Region Laterality Modality Other Narrative 03/08/2022 Ordered by an unspecified provider. [facility] Provider SCANNED EXTERNAL RES ULT Final Result * RADIOLOGY SCAN (03/08/2022) Anatomical Region Laterality Modality Other Narrative 03/08/2022 Ordered by an unspecified provider. us [place] Historical Provider SCANNED EXTERNAL RES ULT Final Result documented in this encounter Visit Diagnoses Not on filedocumented in this encounter Care Teams Residential Director Relationship Specialty Start Date End Date Pcp, Other Patient has a PCP, but uncertain who PCP - General 12/11/24 Cecile Pascual P.A. [address] [place] [address] Referring Provider Internal Medicine 12/11/24 documented as of this encounter
--- OUTSIDE RECORDS SUMMARY | 2024-12-13 14:32 | XMS_ITS | Encounter Summary ---
Author Organization [facility] Address [address] [place] [address] Care Team Providers Care Insecticide Sprayer Name Role Phone Pcp, Other Primary Care Provider Unavailchristian e Cecile Pascual Unavailable [phone] Encounter Details Date Type Department Care Team (Late st Contact Info) Description 01/26/2016 Amberly Historical EDM Scans [place] - Conversion Department - [facility] Medicine ProviderAmberly Historical Social History Tobacco Use Types Packs/Day Years Used Date Smoking Tobacco: Never Assessed Comments Unknown Sex and Gender Information Value Date Recorded Sex Assigned at Female 12/11/2024 3:31 PM AIR CONDITIONER INSTALLER HELPER Legal Sex Female 7:02 PM AIR CONDITIONER INSTALLER HELPER Gender Identity Male 12/11/2024 3:31 PM AIR CONDITIONER INSTALLER HELPER Sexual Orientation Not on file documented as of this encounter Plan of Treatment Not on file documented as of this encounter Visit Diagnoses Not on filedocumented in this encounter Care Teams Insecticide Sprayer Relationship Specialty Start Date End Date Pcp, Other Patient has a PCP, but uncertain who PCP - General 12/11/24 Cecile Pascual P.A. [address] [place] [address] Referring Provider Internal Medicine 12/11/24 documented as of this encounter
--- OUTSIDE RECORDS SUMMARY | 2024-12-13 14:32 | XMS_ITS | Encounter Summary ---
Author Organization [facility] Address [address] [place] [address] Care Team Providers Care Electronic Parts Salesperson Name Role Phone Pcp, Other Primary Care Provider Unavailabl e Cecile Pascual Unavailable [phone] Encounter Details Date Type Department Care Team (Late st Contact Info) Description 03/09/2022 [place] Historical EDM Scans [place] - Conversion Department - [facility] Medicine ProviderAmberly Historical Social History Tobacco Use Types Packs/Day Years Used Date Smoking Tobacco: Never Assessed Comments Unknown Sex and Gender Information Value Date Recorded Sex Assigned at Female 12/11/2024 3:31 PM BUILDING PERFORMANCE SPECIALIST Legal Sex Female 7:02 PM BUILDING PERFORMANCE SPECIALIST Gender Identity Male 12/11/2024 3:31 PM BUILDING PERFORMANCE SPECIALIST Sexual Orientation Not on file documented as of this encounter Plan of Treatment Not on file documented as of this encounter Visit Diagnoses Not on filedocumented in this encounter Care Teams Electronic Parts Salesperson Relationship Specialty Start Date End Date Pcp, Other Patient has a PCP, but uncertain who PCP - General 12/11/24 Cecile Pascual P.A. [address] [place] [address] Referring Provider Internal Medicine 12/11/24 documented as of this encounter
--- OUTSIDE RECORDS SUMMARY | 2024-12-13 14:32 | XMS_ITS | Encounter Summary ---
Author Organization [facility] Address [address] [place] [address] Care Team Providers Care Environmental Geologist Name Role Phone Pcp, Other Primary Care Provider Unavailabl e Cecile Pascual Unavailable [phone] Encounter Details Date Type Department Care Team (Late st Contact Info) Description 04/22/2022 [place]ly Historical EDM Scans [place] - Conversion Department - [facility] Medicine ProviderAmberly Historical Social History Tobacco Use Types Packs/Day Years Used Date Smoking Tobacco: Never Assessed Comments Unknown Sex and Gender Information Value Date Recorded Sex Assigned at Female 12/11/2024 3:31 PM PROFESSOR OF COMMUNICATION Legal Sex Female 7:02 PM PROFESSOR OF COMMUNICATION Gender Identity Male 12/11/2024 3:31 PM PROFESSOR OF COMMUNICATION Sexual Orientation Not on file documented as of this encounter Plan of Treatment Not on file documented as of this encounter Visit Diagnoses Not on filedocumented in this encounter Care Teams Environmental Geologist Relationship Specialty Start Date End Date Pcp, Other Patient has a PCP, but uncertain who PCP - General 12/11/24 Cecile Pascual P.A. [address] [place] [address] Referring Provider Internal Medicine 12/11/24 documented as of this encounter
--- OUTSIDE RECORDS SUMMARY | 2024-12-13 14:32 | XMS_ITS | Encounter Summary ---
Author Organization [facility] Address [address] [place] [address] Care Team Providers Care Fiscal Accountant Name Role Phone Pcp, Other Primary Care Provider Cecile Díaz Unavailable [phone] Encounter Details Date Type Department Care Team (Late st Contact Info) Description 02/25/2018 [place] Historical EDM Scans [place] - Conversion Department - [facility] Medicine Provider, Amberly Mena Social History Tobacco Use Types Packs/Day Years Used Date Smoking Tobacco: Never Assessed Comments Unknown Sex and Gender Information Value Date Recorded Sex Assigned at Female 12/11/2024 3:31 PM SEALING MACHINE OPERATOR Legal Sex Female 7:02 PM SEALING MACHINE OPERATOR Gender Identity Male 12/11/2024 3:31 PM SEALING MACHINE OPERATOR Sexual Orientation Not on file [...] 02/25/2018 Ordered by an unspecified provider. [facility] Provider SCANNED EXTERNAL RES ULT Final [...] Narrative 02/25/2018 Ordered by an unspecified provider. [facility] Historical Provider SCANNED EXTERNAL RES ULT Final Result documented in this encounter Visit Diagnoses Not on filedocumented in this encounter Care Teams Fiscal Accountant Relationship Specialty Start Date End Date Pcp, Other Patient has a PCP, but uncertain who PCP - General 12/11/24 Cecile Pascual P.A. [address] [place] [address] Referring Provider Internal Medicine 12/11/24 documented as of this encounter
--- OUTSIDE RECORDS SUMMARY | 2024-12-13 14:32 | XMS_ITS | Encounter Summary ---
Author Organization [facility] Address [address] [place] [address] Care Team Providers Care Front Desk Coordinator Name Role Phone Pcp, Other Primary Care Provider Unavailabl e Cecile Pascual Unavailable [phone] Encounter Details Date Type Department Care Team (Late st Contact Info) Description 03/09/2022 [place] Historical EDM Scans [place] - Conversion Department - [facility] Medicine ProviderAmberly Historical Social History Tobacco Use Types Packs/Day Years Used Date Smoking Tobacco: Never Assessed Comments Unknown Sex and Gender Information Value Date Recorded Sex Assigned at Female 12/11/2024 3:31 PM SUPERVISOR COMPOUNDING AND FINISHING Legal Sex Female 7:02 PM SUPERVISOR COMPOUNDING AND FINISHING Gender Identity Male 12/11/2024 3:31 PM SUPERVISOR COMPOUNDING AND FINISHING Sexual Orientation Not on file documented as of this encounter Plan of Treatment Not on file documented as of this encounter Visit Diagnoses Not on filedocumented in this encounter Care Teams Front Desk Coordinator Relationship Specialty Start Date End Date Pcp, Other Patient has a PCP, but uncertain who PCP - General 12/11/24 Cecile Pascual P.A. [address] [place] [address] Referring Provider Internal Medicine 12/11/24 documented as of this encounter
--- OUTSIDE RECORDS SUMMARY | 2024-12-13 14:32 | XMS_ITS | Encounter Summary ---
Author Organization [facility] Address [address] [place] [address] Care Team Providers Care Heel Padder Name Role Phone Pcp, Other Primary Care Provider Unavailabl e Cecile Pascual Unavailable [phone] Encounter Details Date Type Department Care Team (Late st Contact Info) Description 08/26/2020 [place] Historical EDM Scans [place] - Conversion Department - [facility] Medicine Provider, Amberly Historical Social History Tobacco Use Types Packs/Day Years Used Date Smoking Tobacco: Never Assessed Comments Unknown Sex and Gender Information Value Date Recorded Sex Assigned at Female 12/11/2024 3:31 PM ASSET MANAGEMENT LEAD Legal Sex Female 7:02 PM ASSET MANAGEMENT LEAD Gender Identity Male 12/11/2024 3:31 PM ASSET MANAGEMENT LEAD Sexual Orientation Not on file documented as [...] on filedocumented in this encounter Care Teams Heel Padder Relationship Specialty Start Date End Date Pcp, Other Patient has a PCP, but uncertain who PCP - General 12/11/24 Cecile Pascual P.A. [address] [place] [address] Referring Provider Internal Medicine 12/11/24 documented as of this encounter
--- OUTSIDE RECORDS SUMMARY | 2024-12-13 14:32 | XMS_ITS | Encounter Summary ---
Author Organization [facility] Address [address] [place] [address] Care Team Providers Care Sheet Roller Operator Name Role Phone Pcp, Other Primary Care Provider Unavailabl e Cecile Pascual Unavailable [phone] Encounter Details Date Type Department Care Team (Late st Contact Info) Description 03/08/2022 [place] Historical EDM Scans [place] - Conversion Department - [facility] Medicine ProviderAmberly Historical Social History Tobacco Use Types Packs/Day Years Used Date Smoking Tobacco: Never Assessed Comments Unknown Sex and Gender Information Value Date Recorded Sex Assigned at Female 12/11/2024 3:31 PM BARREL AND RECEIVER ALIGNER Legal Sex Female 7:02 PM BARREL AND RECEIVER ALIGNER Gender Identity Male 12/11/2024 3:31 PM BARREL AND RECEIVER ALIGNER Sexual Orientation Not on file documented as of this encounter Plan of Treatment Not on file documented as of this encounter Visit Diagnoses Not on filedocumented in this encounter Care Teams Sheet Roller Operator Relationship Specialty Start Date End Date Pcp, Other Patient has a PCP, but uncertain who PCP - General 12/11/24 Cecile Pascual P.A. [address] [place] [address] Referring Provider Internal Medicine 12/11/24 documented as of this encounter
--- OUTSIDE RECORDS SUMMARY | 2024-12-13 14:32 | XMS_ITS | Clinical Summary ---
Author Organization [facility] Address [address] [place] [address] Care Team Providers Care Physical Trainer Name Role Phone Pcp, Other Primary Care Provider Cecile Díaz Unavailable [phone] Allergies No known active allergies Medications Doxycycline [...] PM CDT 03/21/20 22 Active HYDROcodone-aceta minophen (Bangor) 5-325 mg tablet Take 1 tablet by mouth every 24 hours as needed for pain 10 tablet 2 3:52 PM CDT 05/06/20 22 Active HYDROcodone-aceta minophen (Bangor) 5-325 mg tablet Take 1 tablet by mouth every 24 hours as needed for pain 10 tablet 3 1:32 PM PUNCH FINISHER 12/15/19 23 Active ergocalciferol (Vitamin D2) 1,250 [...] AM CDT 07/15/20 23 Active HYDROcodone-aceta minophen (Bangor) 10-325 mg tablet Take 1 tablet by mouth every eight to twelve hours 20 tablet 3 8:31 AM CDT 08/01/20 23 Active diclofenac sodium (VOLTAREN) 75 mg enteric-coated tablet Take 1 Tablet by mouth 2 x daily with breakfast & dinner. 60 tablet 1 4 10:35 AM PUNCH FINISHER 12/07/19 24 Active ondansetron orally disintegrating tablet (ZOFRAN ODT) 4 mg Dissolve 1 tablet by mouth every 12 hours for 10 doses. 10 tablet 12/11/19 25 025 Active ondansetron (ZOFRAN ODT) 4 mg orally disintegrating tablet Dissolve 1 tablet by mouth every 8 hours as needed for nausea or vomiting. 15 tablet 3 1:11 PM PUNCH FINISHER 09/14/20 23 025 Disconti nueverett(No Longer Taking) Encounters Date Type Department Care Team Description 12/11/2024 3:28 PM PUNCH FINISHER - 12/11/2024 5:51 PM PUNCH FINISHER Emergency [facility] Emergency Department - [facility] Medicine [address] [place] [address] Misael Loera M.D. Left against medical advice [...] Sex Assigned at Female 12/11/2024 3:31 PM PUNCH FINISHER Legal Sex Female 7:02 PM PUNCH FINISHER Gender Identity Male 12/11/2024 3:31 PM PUNCH FINISHER Sexual Orientation Not on file Last Filed Vital Signs Vital Sign Reading Time Taken Comments Blood Pressure 101/80 12/11/2024 3:27 PM PUNCH FINISHER Pulse 87 12/11/2024 3:27 PM PUNCH FINISHER Temperature 37 C (98.6 F) 12/11/2024 3:27 PM PUNCH FINISHER Respiratory Rate 22 12/11/2024 3:27 PM PUNCH FINISHER Oxygen Saturation 100% 12/11/2024 3:27 PM PUNCH FINISHER Inhaled Oxygen Concentration - - Weight 81.6 kg (180 lb) 09/14/2023 2:06 PM PUNCH FINISHER Height 167.6 cm (5' 6 ) 09/14/2023 2:06 PM PUNCH FINISHER Body Mass Index 29.05 09/14/2023 2:06 PM PUNCH FINISHER Plan of Treatment Health Maintenance Due Date [...] Comments CULTURE, URINE STAT 12/11/2024 5:14 PM PUNCH FINISHER POC URINE ROUTINE 12/11/2024 4 :49 PM PUNCH FINISHER POC URINE DIPSTICK ROUTINE 12/11/2024 4: 41 PM PUNCH FINISHER URINE TOXICOLOGY SCREEN STAT 12/11/2024 4:38 PM PUNCH FINISHER HC ALCOHOL IMMUNOASSAY STAT 3:43 PM PUNCH FINISHER CBC WITH AUTO DIFFERENTIAL STAT 12/11/2024 3:43 PM PUNCH FINISHER MAGNESIUM STAT 12/11/2024 3:43 PM PUNCH FINISHER HC LIPASE STAT 12/11/2024 3:43 PM PUNCH FINISHER COMPREHENSIVE METABOLIC PANEL STAT 12/11/2024 3:43 PM PUNCH FINISHER CBC WITH DIFFERENTIAL STAT 12/11/2024 3:43 PM PUNCH FINISHER from Last 3 Months Results * CULTURE, URINE (12/11/2024 5:14 PM PUNCH FINISHER) [facility] Urine Culture <10,000 CFU/mL 12/13/2024 7:43 AM [place] [address] Urine (Urine, Mid-Stream/Clean Catch (Voided)) 12/11/2024 5:14 PM PUNCH FINISHER 12/11/2024 5:19 PM PUNCH FINISHER us Cecile De LAB MICROBIOLOGY ORDERABLE S Final Result [place], [place] [address] [place] [address], [facility] * POC Urine (12/11/2024 4:49 PM PUNCH FINISHER) POC HCG Negative Negative 12/11/2024 4:55 [place] [address] Urine URINE / Unknown 12/11/2024 4 :49 PM PUNCH FINISHER 12/11/2024 4:55 PM PUNCH FINISHER us Misael Loera M.D. LAB COAGULATION ORDERABLES Fin al Result [place], [place] [id number] [place] [address], [facility] * (ABNORMAL) POC Urine Dipstick (12/11/2024 4:41 PM PUNCH FINISHER) Pathologist [facility] POCUA Clarity Clear 12/11/2024 4:44 [place] [address] POCUA Color Yellow 12/11/2024 4:44 [place] [address] POCUA Leukocytes Trace(A) Negative 12/11/19 25 4:44 [place] [address] POCUA Nitrite Negative Negative 12/11/2024 4:44 [place] [address] POC[facility] Urobilinogen 1.0 0.2 - 1.0 E.U/dL 12/11/2024 4:44 [place] [address] POCUA pH 8.5(H) 5.0 - 8.0 12/11/2024 4:44 [place] [address] POC[facility] Blood Moderate(A) Negative 12/11/2024 4:44 [place] [address] POC[facility] Specific Bucklin 1.020 1.001 - 1.035 12/11/2024 4:44 [place] [address] POCUA Ketone 15(A) Negative mg/dL 12/11/2024 4:44 [place] [address] P[facility] Bilirubin Negative Negative 4:44 [place] [address] P[facility] Glucose Negative Negative mg/dL 12/11/2024 4:44 [place] [address] POCUA Protein 30(A) Negative mg/dL 12/11/2024 4:44 [place] [address] Urine URINE / Unknown 12/11/2024 4 :41 PM PUNCH FINISHER 12/11/2024 4:44 PM PUNCH FINISHER Misael Loera M.D. LAB CHEMISTRY ORDERABLES Final Result [place], [place] [address] [place] [address], [facility] * (ABNORMAL) Urine Toxicology Screen (12/11/2024 4:38 PM PUNCH FINISHER) [facility] Amphetamines None Detected None Detected 12/11/2024 5:29 [place] [address] Barbituate None Detected None Detected 12/11/2024 5:29 [place] [address] Benzodiazepine None Detected None Detected 12/11/2024 5:29 [place] [address] Cocaine None Detected None Detected 12/11/2024 5:29 [place] [address] Phencyclidine (PCP) None Detected None Detected 12/11/2024 5:29 [place] [address] Opiates None Detected None Detected 12/11/2024 5:29 [place] [address] Cannabinoids, Urine Positive(A) None Detected 12/11/2024 5:29 [place] [address] Urine URINE / Unknown 12/11/2024 4 :38 PM PUNCH FINISHER 12/11/2024 4:41 PM PUNCH [place]ISH[place] [address] - 12/11/2024 5:29 PM PUNCH FINISHER All positive results are considered presumptive until [...] De LAB CHEMISTRY ORDERABLES F inal Result [place], [place] [address] [place] [address], [facility] * (ABNORMAL) CBC and Differential (12/11/2024 3:43 PM PUNCH FINISHER) WBC 13.9(H) 3.5 - 11.0 10e3/uL 12/11/2024 3:57 [place] [address] RBC 4.93 4.47 - 5.26 10e6/uL 12/11/2024 3:57 [place] [address] Hemoglobin 15.5 13.5 - 15.5 g/dL 12/11/2024 3:57 [place] [address] Hematocrit 45.9 41.0 - 47.0 % 12/11/2024 3:57 [place] [address] MCV 93.1 81.0 - 99.0 fL 12/11/2024 3:57 [place] [address] MCH 31.4 26.0 - 33.0 pg 12/11/2024 3:57 [place] [address] MCHC 33.8 32.0 - 35.0 g/dL 12/11/2024 3:57 [place] [address] RDW 12.1 <14.3 % 12/11/2024 3:57 [place] [address] Platelet 354 150 - 450 10e3/uL 12/11/2024 3:57 [place] [address] MPV 9.2(L) 9.6 - 12.6 fL 12/11/2024 3:57 [place] [address] NRBC Percent 0.0 <=0.0 % WBC 12/11/2024 3:57 [place] [address] Neutrophils 82.3(H) 39.0 - 75.0 % 12/11/2024 3:57 [place] [address] Lymphocytes 11.0(L) 16.0 - 47.0 % 12/11/2024 3:57 [place] [address] Monocytes 5.6 4.0 - 12.0 % 12/11/2024 3:57 [place] [address] Eosinophils 0.3 0.0 - 7.0 % 12/11/2024 3:57 [place] [address] Basophils 0.4 0.0 - 2.0 % 12/11/2024 3:57 [place] [address] Immature Granulocytes 0.4 <0.5 % 12/11/2024 3:57 [place] [address] Neutrophils Absolute 11.43(H) 1.12 - 6.72 10e3/uL 12/11/2024 3:57 [place] [address] Lymphocytes Absolute 1.52 0.90 - 3.30 10e3/uL 12/11/2024 3:57 [place] [address] Monocytes Absolute 0.77 0.16 - 0.92 10e3/uL 12/11/2024 3:57 [place] [address] Eosinophils Absolute 0.04 0.00 - 0.60 10e3/uL 12/11/2024 3:57 [place] [address] Basophils Absolute 0.05 0.00 - 0.21 10e3/uL 12/11/2024 3:57 [place] [address] Immature Granulocyte Absolute 0.05(H) <0.04 10e3/uL 12/11/2024 3:57 [place] [address] NRBC Absolute 0.00 <=0.00 10e3/uL 12/11/2024 3:57 [place] [address] Blood VENOUS BLOOD SPECIMEN / Unknown Venipuncture / Unknown 12/11/2024 3:43 PM PUNCH FINISHER 12/11/2024 3:45 PM PUNCH FINISHER us Cecile De LAB HEMATOLOGY ORDERABLES Final Result [place], [place] [address] [place] [address], [facility] * Magnesium (12/11/2024 3:43 PM PUNCH FINISHER) Magnesium 1.9 1.6 - 2.5 mg/dL 12/11/2024 4:12 [place] [address] Blood VENOUS BLOOD SPECIMEN / Unknown Venipuncture / Unknown 12/11/2024 3:43 PM PUNCH FINISHER 12/11/2024 3:45 PM PUNCH FINISHER us Cecile Caldera.Beatriz. LAB CHEMISTRY ORDERABLES F inal Result Performing Organization Address [facility] Co de Phone Number [address] * (ABNORMAL) Lipase (12/11/2024 3:43 PM PUNCH FINISHER) [facility] Lipase 218(H) 11 - 65 U/L 12/11/2024 4:12 [place] [address] Blood VENOUS BLOOD SPECIMEN / Unknown Venipuncture / Unknown 12/11/2024 3:43 PM PUNCH FINISHER 12/11/2024 3:45 PM PUNCH FINISHER us Cecile Caldera.Beatriz. LAB CHEMISTRY ORDERABLES F inal Result Performing Organization Address [facility] Co de Phone Number [address] * Comprehensive Metabolic Panel (12/11/2024 3:43 PM PUNCH FINISHER) [facility] Glucose 92 60 - 99 mg/dL 12/11/2024 4:12 [place] [address] Comment:Reference range for fasting plasma glucose only. Sodium 142 135 - 145 mmol/L 12/11/2024 4:12 [place] [address] Potassium 3.8 3.5 - 5.0 mmol/L 12/11/2024 4:12 [place] [address] Chloride 106 98 - 108 mmol/L 12/11/2024 4:12 [place] [address] Carbon Dioxide 23 23 - 30 mmol/L 12/11/2024 4:12 [place] [address] Anion Gap 13 6 - 15 mmol/L 12/11/2024 4:12 [place] [address] Blood Urea Nitrogen 11 7 - 20 mg/dL 12/11/2024 4:12 [place] [address] Creatinine 0.71 0.50 - 1.40 mg/dL 12/11/2024 4:12 [place] [address] eGFR Estimate, All 112 >=90 mL/min/1.7 3 sq. m 12/11/2024 4:12 [place] [address] Comment: eGFR calculated using the 2020 CKD-EPI non-race equation. Chronic Kidney Disease: <60 mL/min/1.73 sq. m Stage 3a: 45-59 mL/min/1.73 sq. m Stage 3b: 30-44 mL/min/1.73 sq. m Stage 4: 15-29 mL/min/1.73 sq. m Stage 5: <15 mL/min/1.73 sq. m Calcium 8.8 8.4 - 10.2 mg/dL 12/11/2024 4:12 [place] [address] Bilirubin Total 1.0 mg/dL 4:12 [place] [address] Protein, Total 7.4 6.0 - 8.3 g/dL 12/11/2024 4:12 [place] [address] Albumin 4.1 3.5 - 5.0 g/dL 12/11/2024 4:12 [place] [address] Alkaline phosphatase 78 30 - 120 U/L 12/11/2024 4:12 [place] [address] AST (SGOT) 27 8 - 37 U/L 12/11/2024 4:12 [place] [address] ALT (SGPT) 25 8 - 35 U/L 12/11/2024 4:12 [place] [address] Blood VENOUS BLOOD SPECIMEN / Unknown Venipuncture / Unknown 12/11/2024 3:43 PM PUNCH FINISHER 12/11/2024 3:45 PM PUNCH FINISHER us Cecile Pascual P.A. LAB CHEMISTRY ORDERABLES F inal Result Performing Organization Address City/[facility] Co de Phone Number [address] * Serum Alcohol (12/11/2024 3:43 PM PUNCH FINISHER) Pathologist [facility] Alcohol, serum <10 <25 mg/dL 12/11/2024 4:22 [place] [address] Blood VENOUS BLOOD SPECIMEN / Unknown Venipuncture / Unknown 12/11/2024 3:43 PM PUNCH FINISHER 12/11/2024 3:45 PM PUNCH FINISHER us Cecile Pascual P.A. LAB CHEMISTRY ORDERABLES F inal Result [place] [id number] [place] [address] from Last 3 Months Insurance [employer] [place] [address] Care Teams Physical Trainer Relationship Specialty Start Date End Date Pcp, Other Patient has a PCP, but uncertain who PCP - General 12/11/24 Cecile Pascual P.A. [address] [place] [address] Referring Provider Internal Medicine 12/11/24
--- OUTSIDE RECORDS SUMMARY | 2024-12-13 14:32 | XMS_ITS | Clinical Summary ---
Author Organization [facility] Address [address] [place] [address] Phone Care Team Providers Care Sticker On Name Role Phone No, Pcp MD Primary [...] Plan of Treatment Not on file Insurance [place] [employer] [facility] LIABILITY INSURANCE [facility] Address: [address] [place] [address] [place] [address] Care Teams Sticker On Relationship Specialty Start Date End Date No, PcpMD PCP - General 10/31/12
--- OUTSIDE RECORDS SUMMARY | 2024-12-13 14:32 | XMS_ITS | Encounter Summary ---
Author Organization [facility] Address [address] [address] Care Team Providers Care Sample Maker Name Role Phone Pcp, Other Primary Care Provider Cecile Díaz Unavailable [phone] Encounter Details Date Type Department Care Team (Late st Contact Info) Description 08/01/2017 Amberly Historical EDM Scans Boaz - Conversion Department - [facility] Medicine Provider, Amberly Mena Social History Tobacco Use Types Packs/Day Years Used Date Smoking Tobacco: Never Assessed Comments Unknown Sex and Gender Information Value Date Recorded Sex Assigned at Female 12/11/2024 3:[address] JUSTICE Legal Sex Female 7:[address] JUSTICE Gender Identity Male 12/11/2024 3:[address] JUSTICE Sexual Orientation Not on file documented as [...] Narrative 08/01/2017 Ordered by an unspecified provider. Boaz Historical Provider SCANNED EXTERNAL RES ULT Final Result documented in this encounter Visit Diagnoses Not on filedocumented in this encounter Care Teams Sample Maker Relationship Specialty Start Date End Date Pcp, Other Patient has a PCP, but uncertain who PCP - General 12/11/24 Cecile Pascual P.A. [address] [place] [address] Referring Provider Internal Medicine 12/11/24 documented as of this encounter
--- OUTSIDE RECORDS SUMMARY | 2024-12-13 14:32 | XMS_ITS | Encounter Summary ---
Author Organization [facility] Address [address] [place] [address] Care Team Providers Care Manager Of Project Management Name Role Phone Pcp, Other Primary Care Provider Unavailabl e Cecile Pascual Unavailable [phone] Encounter Details Date Type Department Care Team (Late st Contact Info) Description 04/16/2017 Amberly Historical EDM Scans Amberly - Conversion Department - [facility] Medicine ProviderAmberly Historical Social History Tobacco Use Types Packs/Day Years Used Date Smoking Tobacco: Never Assessed Comments Unknown Sex and Gender Information Value Date Recorded Sex Assigned at Female 12/11/2024 3:31 PM COLLAR BAND CREASER Legal Sex Female 7:02 PM COLLAR BAND CREASER Gender Identity Male 12/11/2024 3:31 PM COLLAR BAND CREASER Sexual Orientation Not on file documented as of this encounter Plan of Treatment Not on file documented as of this encounter Visit Diagnoses Not on filedocumented in this encounter Care Teams Manager Of Project Management Relationship Specialty Start Date End Date Pcp, Other Patient has a PCP, but uncertain who PCP - General 12/11/24 Cecile Pascual P.A. [address] [place] [address] Referring Provider Internal Medicine 12/11/24 documented as of this encounter
--- OUTSIDE RECORDS SUMMARY | 2024-12-13 14:32 | XMS_ITS | Encounter Summary ---
Author Organization [facility] Address [address] [place] [address] Care Team Providers Care Manager Construction Name Role Phone Pcp, Other Primary Care Provider Unavailabl e Cecile Pascual Unavailable [phone] Encounter Details Date Type Department Care Team (Late st Contact Info) Description 07/03/2020 Whitney Historical EDM Scans Whitney - Conversion Department - [facility] Medicine Provider, Amberly Historical Social History Tobacco Use Types Packs/Day Years Used Date Smoking Tobacco: Never Assessed Comments Unknown Sex and Gender Information Value Date Recorded Sex Assigned at Female 12/11/2024 3:31 PM BOTTOM PRECIPITATOR OPERATOR Legal Sex Female 7:02 PM BOTTOM PRECIPITATOR OPERATOR Gender Identity Male 12/11/2024 3:31 PM BOTTOM PRECIPITATOR OPERATOR Sexual Orientation Not on file documented [...] filedocumented in this encounter Care Teams Manager Construction Relationship Specialty Start Date End Date Pcp, Other Patient has a PCP, but uncertain who PCP - General 12/11/24 Cecile Pascual P.A. [address] [place] [address] Referring Provider Internal Medicine 12/11/24 documented as of this encounter
--- OUTSIDE RECORDS SUMMARY | 2024-12-13 14:32 | XMS_ITS | Clinical Summary ---
Author Organization [facility] Address [address] [place] [address] Care Team Providers Care Concrete Finisher Apprentice Name Role Phone SergioCelio vela Primary Care Provider [phone] Allergies Active Allergy Reactions Criticality Noted Date [...] phone, visiting friends or family, going to hoahaoism or club meetings) 3 to 5 times [...] this topic Medical Devices Implanted Type Area Hand Rug Cleaner Device Identifier Shelf Expiration Date Model / Serial / Lot Substitute Bngf 6cc Fibergraft Med Bioactive - [id number] Implanted:Qty: 1 on 01/13/2023 by Deric Sinha MD at [facility] Filler Left: Leg Lower Depuy Synthes Spine 07/10/2027 [id number] / / [id number] Substitute Bngf 6cc Fibergraft Med Bioactive - [id number] Implanted:Qty: 1 on 01/13/2023 by Deric Sinha MD at [facility] Filler Left: Leg Lower Depuy Synthes Spine [id number] / / NA Plate Bn 131mm Tib Prox Posteromedial 6 Hole Lowprfl Lmt - [id number] Implanted:Qty: 1 on 01/13/2023 by Deric Sinha MD at [facility] Plate Left: Leg Lower Depuy Synthes Trauma 01/30/2025 02.120.706S / / [id number] Screw Bn 3.5mm 38mm 2.5mm Full Thrd Self Tap Lowprfl Sm Hex - [id number] Implanted:Qty: 2 on 01/13/2023 by Deric Sinha MD at [facility] Screw Left: Leg Lower Depuy Synthes Trauma 204.838 / / NA Screw Bn 4.5mm 65mm Full Thrd Cannulated Ti - [id number] Implanted:Qty: 1 on 01/13/2023 by Deric Sinha MD at [facility] Screw Left: Leg Lower Depuy Synthes Trauma 04.355.565 / / NA Screw Bn 3.5mm 70mm T15 Self Tap Lock Yola Ang Strdr Ss Ns - [id number] Implanted:Qty: 1 on 01/13/2023 by Deric Sinha MD at [facility] Screw Left: Leg Lower Depuy Synthes Trauma 02.127.170 / / NA Screw Bn 4mm 6mm 55mm 2.5mm Full Thrd Sm Hex Sckt Ss Ns Canc - [id number] Implanted:Qty: 1 on 01/13/2023 by Deric Sinha MD at [facility] Screw Left: Leg Lower Depuy Synthes Trauma 206.055 / / NA Screw Bn 3.5mm 2.9mm 60mm T15 Full Thrd Self Tap Lock Strdr - [id number] Implanted:Qty: 1 on 01/13/2023 by Deric Sinha MD at [facility] Screw Left: Leg Lower Depuy Synthes Trauma 212.124 / / NA Screw Bn 3.5mm 6mm 48mm 2.5mm Full Thrd Self Tap Lowprfl - [id number] Implanted:Qty: 1 on 01/13/2023 by Deric Sinha MD at [facility] Screw Left: Leg Lower Depuy Synthes Trauma 204.848 / / NA Screw Bn 4.5mm 75mm Full Thrd Cannulated Ti - [id number] Implanted:Qty: 1 on 01/13/2023 by Deric Sinha MD at [facility] Screw Left: Leg Lower Depuy Synthes Trauma 04.355.575 / / NA Screw Bn 4mm 6mm 35mm 2.5mm Full Thrd Sm Hex Sckt Ss Ns Canc - [id number] Implanted:Qty: 1 on 01/13/2023 by Deric Sinha MD at [facility] Screw Left: Leg Lower Depuy Synthes Trauma 206.035 / / [id number] Screw Bn 3.5mm 6mm 55mm 2.5mm Full Thrd Self Tap Lowprfl - [id number] Implanted:Qty: 1 on 01/13/2023 by Deric Sinha MD at [facility] Screw Left: Leg Lower Depuy Synthes Trauma 204.855 / / NA Screw Bn 3.5mm 2.9mm 55mm T15 Full Thrd Self Tap Lock Strdr - [id number] Implanted:Qty: 1 on 01/13/2023 by Deric Sinha MD at [facility] Screw Left: Leg Lower Depuy Synthes Trauma 212.123 / / NA Screw Bn 3.5mm 34mm 2.5mm Full Thrd Self Tap Lowprfl Sm Hex - [id number] Implanted:Qty: 1 on 01/13/2023 by Deric Sinha MD at [facility] Screw Left: Leg Lower Depuy Synthes Trauma 204.834 / / NA Allograft Growth Fctr 5cc - [id number] Implanted:Qty: 1 on 01/13/2023 by Deric Sinha MD at [facility] Tissue Left: Leg Lower [employer] 09/22/2027 [id number] / / [id number] Randal/Screws Description:Left leg Advance Directives * Full Resuscitation (Latest Code Status on File) Date Activated Date Inactivated Comments 01/13/2023 3:26 PM 01/14/2023 1:57 AM Care Teams Concrete Finisher Apprentice Relationship Specialty Start Date End Date Celio Cao DO [address] [place] [address] PCP - General Family Practice 05/31/22
--- OUTSIDE RECORDS SUMMARY | 2024-12-13 14:32 | XMS_ITS | Encounter Summary ---
Author Organization [facility] Address [address] [place] [address] Care Team Providers Care Fagoting Machine Operator Name Role Phone Pcp, Other Primary Care Provider Unavailabl e Cecile Pascual Unavailable Encounter Details Date Type Department Care Team (Late st Contact Info) Description 03/09/2022 Amberly Historical EDM Scans Amberly - Conversion Department - [facility] Medicine ProviderAmberly Historical Social History Tobacco Use Types Packs/Day Years Used Date Smoking Tobacco: Never Assessed Comments Unknown Sex and Gender Information Value Date Recorded Sex Assigned at Female 12/11/2024 3:31 PM GEOTECHNICAL DEPARTMENT MANAGER Legal Sex Female 7:02 PM GEOTECHNICAL DEPARTMENT MANAGER Gender Identity Male 12/11/2024 3:31 PM GEOTECHNICAL DEPARTMENT MANAGER Sexual Orientation Not on file documented as of this encounter Plan of Treatment Not on file documented as of this encounter Visit Diagnoses Not on filedocumented in this encounter Care Teams Fagoting Machine Operator Relationship Specialty Start Date End Date Pcp, Other Patient has a PCP, but uncertain who PCP - General 12/11/24 Cecile Pascual P.A. [address] [place] [address] Referring Provider Internal Medicine 12/11/24 documented as of this encounter
--- OUTSIDE RECORDS SUMMARY | 2024-12-13 14:32 | XMS_ITS | Encounter Summary ---
Author Organization [facility] Address [address] [address] Care Team Providers Care Safety Coordinator Name Role Phone Pcp, Other Primary Care Provider Cecile Díaz Unavailable [phone] Encounter Details Date Type Department Care Team (Late st Contact Info) Description 05/11/2020 Sylvester Historical EDM Scans Sylvester - Conversion Department - [facility] Medicine Provider, Amberly Historical Social History Tobacco Use Types Packs/Day Years Used Date Smoking Tobacco: Never Assessed Comments Unknown Sex and Gender Information Value Date Recorded Sex Assigned at Female 12/11/2024 3:[address] COUNSELLOR Legal Sex Female 7:[address] COUNSELLOR Gender Identity Male 12/11/2024 3:[address] COUNSELLOR Sexual Orientation Not on file documented as [...] Narrative 05/11/2020 Ordered by an unspecified provider. Sylvester Historical Provider SCANNED EXTERNAL RES ULT Final Result documented in this encounter Visit Diagnoses Not on filedocumented in this encounter Care Teams Safety Coordinator Relationship Specialty Start Date End Date Pcp, Other Patient has a PCP, but uncertain who PCP - General 12/11/24 Cecile Pascual P.A. [address] [place] [address] Referring Provider Internal Medicine 12/11/24 documented as of this encounter
--- OUTSIDE RECORDS SUMMARY | 2024-12-13 14:32 | XMS_ITS | Encounter Summary ---
Author Organization [facility] Address [address] [place] [address] Care Team Providers Care Timber Repairer Name Role Phone Pcp, Other Primary Care Provider Cecile Díaz Unavailable [phone] Encounter Details Date Type Department Care Team (Late st Contact Info) Description 08/17/2017 [place] Historical EDM Scans [place] - Conversion Department - [facility] Medicine Provider, Amberly Historical Social History Tobacco Use Types Packs/Day Years Used Date Smoking Tobacco: Never Assessed Comments Unknown Sex and Gender Information Value Date Recorded Sex Assigned at Female 12/11/2024 3:31 PM COMMERCIAL PAINTER Legal Sex Female 7:02 PM COMMERCIAL PAINTER Gender Identity Male 12/11/2024 3:31 PM COMMERCIAL PAINTER Sexual Orientation Not on file documented as [...] 08/17/2017 Ordered by an unspecified provider. us [place] Historical Provider SCANNED EXTERNAL RES ULT Final Result * MISC ORDERS SCAN (08/17/2017) Narrative 08/17/2017 Ordered by an unspecified provider. us [place] Historical Provider SCANNED EXTERNAL RES ULT Final Result * MISC ORDERS SCAN (08/17/2017) Narrative 08/17/2017 Ordered by an unspecified provider. us [place] Historical Provider SCANNED EXTERNAL RES ULT Final Result * LABS SCAN (08/17/2017) Narrative 08/17/2017 Ordered by an unspecified provider. us [place] Historical Provider SCANNED EXTERNAL RES ULT Final Result documented in this encounter Visit Diagnoses Not on filedocumented in this encounter Care Teams Timber Repairer Relationship Specialty Start Date End Date Pcp, Other Patient has a PCP, but uncertain who PCP - General 12/11/24 Cecile Pascual P.A. [address] [place] [address] Referring Provider Internal Medicine 12/11/24 documented as of this encounter
--- OUTSIDE RECORDS SUMMARY | 2024-12-13 14:32 | XMS_ITS | Encounter Summary ---
Author Organization formerly [facility] Address [address] [address] Care Team Providers Care Professor Of Musicology Name Role Phone Pcp, Other Primary Care Provider Cecile Díaz Unavailable [phone] Encounter Details Date Type Department Care Team (Late st Contact Info) Description 01/14/2018 [place] Historical EDM Scans [place] - Conversion Department - [facility] Medicine Provider, Amberly Mena Social History Tobacco Use Types Packs/Day Years Used Date Smoking Tobacco: Never Assessed Comments Unknown Sex and Gender Information Value Date Recorded Sex Assigned at Female 12/11/2024 3:31 PM VENEER TAPER Legal Sex Female 7:02 PM VENEER TAPER Gender Identity Male 12/11/2024 3:31 PM VENEER TAPER Sexual Orientation Not on file documented as [...] Narrative 01/14/2018 Ordered by an unspecified provider. [place] Historical Provider SCANNED EXTERNAL RES ULT Final Result documented in this encounter Visit Diagnoses Not on filedocumented in this encounter Care Teams Professor Of Musicology Relationship Specialty Start Date End Date Pcp, Other Patient has a PCP, but uncertain who PCP - General 12/11/24 Cecile Pascual P.A. [address] [place] [address] Referring Provider Internal Medicine 12/11/24 documented as of this encounter
--- OUTSIDE RECORDS SUMMARY | 2024-12-13 14:32 | XMS_ITS | Encounter Summary ---
Author Organization [facility] Address [address] [place] [address] Care Team Providers Care Knot Saw Operator Name Role Phone Pcp, Other Primary Care Provider Unavailabl e Cecile Pascual Unavailable [phone] Encounter Details Date Type Department Care Team (Late st Contact Info) Description 03/09/2022 [place] Historical EDM Scans [place] - Conversion Department - [facility] Medicine ProviderAmberly Historical Social History Tobacco Use Types Packs/Day Years Used Date Smoking Tobacco: Never Assessed Comments Unknown Sex and Gender Information Value Date Recorded Sex Assigned at Female 12/11/2024 3:31 PM MANUFACTURING SUPERVISOR 2ND SHIFT Legal Sex Female 7:02 PM MANUFACTURING SUPERVISOR 2ND SHIFT Gender Identity Male 12/11/2024 3:31 PM MANUFACTURING SUPERVISOR 2ND SHIFT Sexual Orientation Not on file documented as of this encounter Plan of Treatment Not on file documented as of this encounter Visit Diagnoses Not on filedocumented in this encounter Care Teams Knot Saw Operator Relationship Specialty Start Date End Date Pcp, Other Patient has a PCP, but uncertain who PCP - General 12/11/24 Cecile Pascual P.A. [address] [place] [address] Referring Provider Internal Medicine 12/11/24 documented as of this encounter
--- OUTSIDE RECORDS SUMMARY | 2024-12-13 14:32 | XMS_ITS | Encounter Summary ---
Author Organization [facility] Address [address] [place] [address] Care Team Providers Care Radio Repairer Domestic Name Role Phone Pcp, Other Primary Care Provider Unavailabl e Cecile Pascual Unavailable [phone] Encounter Details Date Type Department Care Team (Late st Contact Info) Description 03/07/2022 [place] Historical EDM Scans [place] - Conversion Department - [facility] Medicine ProviderAmberly Historical Social History Tobacco Use Types Packs/Day Years Used Date Smoking Tobacco: Never Assessed Comments Unknown Sex and Gender Information Value Date Recorded Sex Assigned at Female 12/11/2024 3:31 PM SEO ASSOCIATE Legal Sex Female 7:02 PM SEO ASSOCIATE Gender Identity Male 12/11/2024 3:31 PM SEO ASSOCIATE Sexual Orientation Not on file documented as of this encounter Plan of Treatment Not on file documented as of this encounter Visit Diagnoses Not on filedocumented in this encounter Care Teams Radio Repairer Domestic Relationship Specialty Start Date End Date Pcp, Other Patient has a PCP, but uncertain who PCP - General 12/11/24 Cecile Pascual P.A. [address] [place] [address] Referring Provider Internal Medicine 12/11/24 documented as of this encounter
--- OUTSIDE RECORDS SUMMARY | 2024-12-13 14:32 | XMS_ITS | Encounter Summary ---
Author Organization [facility] Address [address] [place] [address] Care Team Providers Care Business Banking Relationship Manager Name Role Phone Pcp, Other Primary Care Provider Unavailabl e Cecile Pascual Unavailable [phone] Encounter Details Date Type Department Care Team (Late st Contact Info) Description 04/22/2022 [place] Historical EDM Scans [place] - Conversion Department - [facility] Medicine ProviderAmberly Historical Social History Tobacco Use Types Packs/Day Years Used Date Smoking Tobacco: Never Assessed Comments Unknown Sex and Gender Information Value Date Recorded Sex Assigned at Female 12/11/2024 3:31 PM ROLL ICER Legal Sex Female 7:02 PM ROLL ICER Gender Identity Male 12/11/2024 3:31 PM ROLL ICER Sexual Orientation Not on file documented as of this encounter Plan of Treatment Not on file documented as of this encounter Visit Diagnoses Not on filedocumented in this encounter Care Teams Business Banking Relationship Manager Relationship Specialty Start Date End Date Pcp, Other Patient has a PCP, but uncertain who PCP - General 12/11/24 Cecile Pascual P.A. [address] [place] [address] Referring Provider Internal Medicine 12/11/24 documented as of this encounter
--- OUTSIDE RECORDS SUMMARY | 2024-12-13 14:32 | XMS_ITS | Encounter Summary ---
Author Organization [facility] Address [address] [place] [address] Care Team Providers Care Master Barber Name Role Phone Pcp, Other Primary Care Provider Unavailabl e Cecile Pascual Unavailable [phone] Encounter Details Date Type Department Care Team (Late st Contact Info) Description 03/08/2022 [place] Historical EDM Scans [place] - Conversion Department - [facility] Medicine ProviderAmberly Historical Social History Tobacco Use Types Packs/Day Years Used Date Smoking Tobacco: Never Assessed Comments Unknown Sex and Gender Information Value Date Recorded Sex Assigned at Female 12/11/2024 3:31 PM CUSTOMER SERVICER Legal Sex Female 7:02 PM CUSTOMER SERVICER Gender Identity Male 12/11/2024 3:31 PM CUSTOMER SERVICER Sexual Orientation Not on file documented as of this encounter Plan of Treatment Not on file documented as of this encounter Visit Diagnoses Not on filedocumented in this encounter Care Teams Master Barber Relationship Specialty Start Date End Date Pcp, Other Patient has a PCP, but uncertain who PCP - General 12/11/24 Cecile Pascual P.A. [address] [place] [address] Referring Provider Internal Medicine 12/11/24 documented as of this encounter
--- OUTSIDE RECORDS SUMMARY | 2024-12-13 14:32 | XMS_ITS | Encounter Summary ---
Author Organization [facility] Address [address] [place] [address] Care Team Providers Care Senior Ui Designer Name Role Phone Pcp, Other Primary Care Provider Unavailabl e Cecile Pascual Unavailable [phone] Encounter Details Date Type Department Care Team (Late st Contact Info) Description 03/09/2022 [place] Historical EDM Scans [place] - Conversion Department - [facility] Medicine ProviderAmberly Historical Social History Tobacco Use Types Packs/Day Years Used Date Smoking Tobacco: Never Assessed Comments Unknown Sex and Gender Information Value Date Recorded Sex Assigned at Female 12/11/2024 3:31 PM STYLIST ASSISTANT Legal Sex Female 7:02 PM STYLIST ASSISTANT Gender Identity Male 12/11/2024 3:31 PM STYLIST ASSISTANT Sexual Orientation Not on file documented as of this encounter Plan of Treatment Not on file documented as of this encounter Visit Diagnoses Not on filedocumented in this encounter Care Teams Senior Ui Designer Relationship Specialty Start Date End Date Pcp, Other Patient has a PCP, but uncertain who PCP - General 12/11/24 Cecile Pascual P.A. [address] [place] [address] Referring Provider Internal Medicine 12/11/24 documented as of this encounter
--- OUTSIDE RECORDS SUMMARY | 2024-12-13 14:32 | XMS_ITS | Encounter Summary ---
Author Organization [facility] Address [address] [address] Care Team Providers Care Remote Encoding Operations Supervisor Name Role Phone Pcp, Other Primary Care Provider Cecile Díaz Unavailable [phone] Encounter Details Date Type Department Care Team (Late st Contact Info) Description 12/31/2019 [place] Historical EDM Scans [place] - Conversion Department - [facility] Medicine Provider, Amberly Historical Social History Tobacco Use Types Packs/Day Years Used Date Smoking Tobacco: Never Assessed Comments Unknown Sex and Gender Information Value Date Recorded Sex Assigned at Female 12/11/2024 3:31 PM ASBESTOS SHINGLE ROOFER Legal Sex Female 7:02 PM ASBESTOS SHINGLE ROOFER Gender Identity Male 12/11/2024 3:31 PM ASBESTOS SHINGLE ROOFER Sexual Orientation Not on file documented as [...] Narrative 12/31/2019 Ordered by an unspecified provider. [place] Historical Provider SCANNED EXTERNAL RES ULT Final Result documented in this encounter Visit Diagnoses Not on filedocumented in this encounter Care Teams Remote Encoding Operations Supervisor Relationship Specialty Start Date End Date Pcp, Other Patient has a PCP, but uncertain who PCP - General 12/11/24 Cecile Pascual P.A. [address] [place] [address] Referring Provider Internal Medicine 12/11/24 documented as of this encounter
--- OUTSIDE RECORDS SUMMARY | 2024-12-13 14:32 | XMS_ITS | Encounter Summary ---
Author Organization [facility] Address [address] [place] [address] Care Team Providers Care Beam Doffer Name Role Phone Pcp, Other Primary Care Provider Cecile Díaz Unavailable [phone] Encounter Details Date Type Department Care Team (Late st Contact Info) Description 03/09/2022 [place] Historical EDM Scans [place] - Conversion Department - [facility] Medicine ProviderAmberly Historical Social History Tobacco Use Types Packs/Day Years Used Date Smoking Tobacco: Never Assessed Comments Unknown Sex and Gender Information Value Date Recorded Sex Assigned at Female 12/11/2024 3:31 PM VICE PRESIDENT OF ENGINEERING Legal Sex Female 7:02 PM VICE PRESIDENT OF ENGINEERING Gender Identity Male 12/11/2024 3:31 PM VICE PRESIDENT OF ENGINEERING Sexual Orientation Not on file documented as [...] Narrative 03/09/2022 Ordered by an unspecified provider. [facility] Historical Provider SCANNED EXTERNAL RES ULT Final Result * MISC ORDERS SCAN (03/09/2022) Narrative 03/09/2022 Ordered by an unspecified provider. [facility] Provider SCANNED EXTERNAL RES ULT Final Result * MISC ORDERS SCAN (03/09/2022) Narrative 03/09/2022 Ordered by an unspecified provider. [facility] Provider SCANNED EXTERNAL RES ULT Final Result * MISC ORDERS SCAN (03/09/2022) Narrative 03/09/2022 Ordered by an unspecified provider. [facility] Provider SCANNED EXTERNAL RES ULT Final Result * LABS SCAN (03/09/2022) Narrative 03/09/2022 Ordered by an unspecified provider. Result [facility] Provider SCANNED EXTERNAL RES ULT Final Result * RADIOLOGY SCAN (03/09/2022) Anatomical Region Laterality Modality Other Narrative 03/09/2022 Ordered by an unspecified provider. Result [facility] Provider SCANNED EXTERNAL RES ULT Final Result documented in this encounter Visit Diagnoses Not on filedocumented in this encounter Care Teams Beam Doffer Relationship Specialty Start Date End Date Pcp, Other Patient has a PCP, but uncertain who PCP - General 12/11/24 Cecile Pascual P.A. [address] [place] [address] Referring Provider Internal Medicine 12/11/24 documented as of this encounter
--- OUTSIDE RECORDS SUMMARY | 2024-12-13 14:32 | XMS_ITS | Encounter Summary ---
Author Organization [facility] Address [address] [place] [address] Care Team Providers Care Facilities And Grounds Director Name Role Phone Pcp, Other Primary Care Provider Unavailabl e Cecile Pascual Unavailable [phone] Encounter Details Date Type Department Care Team (Late st Contact Info) Description 03/09/2022 [place] Historical EDM Scans [place] - Conversion Department - [facility] Medicine ProviderAmberly Historical Social History Tobacco Use Types Packs/Day Years Used Date Smoking Tobacco: Never Assessed Comments Unknown Sex and Gender Information Value Date Recorded Sex Assigned at Female 12/11/2024 3:31 PM SALES SUPERVISOR Legal Sex Female 7:02 PM SALES SUPERVISOR Gender Identity Male 12/11/2024 3:31 PM SALES SUPERVISOR Sexual Orientation Not on file documented as of this encounter Plan of Treatment Not on file documented as of this encounter Visit Diagnoses Not on filedocumented in this encounter Care Teams Facilities And Grounds Director Relationship Specialty Start Date End Date Pcp, Other Patient has a PCP, but uncertain who PCP - General 12/11/24 Cecile Pascual P.A. [address] [place] [address] Referring Provider Internal Medicine 12/11/24 documented as of this encounter
--- OUTSIDE RECORDS SUMMARY | 2024-12-13 14:32 | XMS_ITS | Encounter Summary ---
Author Organization [facility] Address [address] [place] [address] Care Team Providers Care Architectural Renderer Name Role Phone Pcp, Other Primary Care Provider Unavailabl e Cecile Pascaul Unavailable [phone] Encounter Details Date Type Department Care Team (Late st Contact Info) Description 05/19/2017 [place] Historical EDM Scans [place] - Conversion Department - [facility] Medicine ProviderAmberly Historical Social History Tobacco Use Types Packs/Day Years Used Date Smoking Tobacco: Never Assessed Comments Unknown Sex and Gender Information Value Date Recorded Sex Assigned at Female 12/11/2024 3:31 PM MEDICAL ASSOCIATE Legal Sex Female 7:02 PM MEDICAL ASSOCIATE Gender Identity Male 12/11/2024 3:31 PM MEDICAL ASSOCIATE Sexual Orientation Not on file documented as of this encounter Plan of Treatment Not on file documented as of this encounter Visit Diagnoses Not on filedocumented in this encounter Care Teams Architectural Renderer Relationship Specialty Start Date End Date Pcp, Other Patient has a PCP, but uncertain who PCP - General 12/11/24 Cecile Pascual P.A. [address] [place] [address] Referring Provider Internal Medicine 12/11/24 documented as of this encounter
--- OUTSIDE RECORDS SUMMARY | 2024-12-13 14:32 | XMS_ITS | Encounter Summary ---
Author Organization [facility] Address [address] [place] [address] Care Team Providers Care Project Manager Interior Design Name Role Phone Pcp, Other Primary Care Provider Unavailabl e Cecile Pascual Unavailable Encounter Details Date Type Department Care Team (Late st Contact Info) Description 01/13/2016 [place] Historical EDM Scans [place] - Conversion Department - [facility] Medicine ProviderAmberly Historical Social History Tobacco Use Types Packs/Day Years Used Date Smoking Tobacco: Never Assessed Comments Unknown Sex and Gender Information Value Date Recorded Sex Assigned at Female 12/11/2024 3:31 PM LAWYERS Legal Sex Female 7:02 PM LAWYERS Gender Identity Male 12/11/2024 3:31 PM LAWYERS Sexual Orientation Not on file documented as of this encounter Plan of Treatment Not on file documented as of this encounter Visit Diagnoses Not on filedocumented in this encounter Care Teams Project Manager Interior Design Relationship Specialty Start Date End Date Pcp, Other Patient has a PCP, but uncertain who PCP - General 12/11/24 Cecile Pascual P.A. [address] [place] [address] Referring Provider Internal Medicine 12/11/24 documented as of this encounter
--- OUTSIDE RECORDS SUMMARY | 2024-12-13 14:32 | XMS_ITS | Encounter Summary ---
Author Organization [facility] Address [address] [place] [address] Care Team Providers Care Cte Teacher Name Role Phone Pcp, Other Primary Care Provider Unavailabl e Cecile Pascual Unavailable [phone] Encounter Details Date Type Department Care Team (Late st Contact Info) Description 03/09/2022 [place] Historical EDM Scans [place] - Conversion Department - [facility] Medicine ProviderAmberly Historical Social History Tobacco Use Types Packs/Day Years Used Date Smoking Tobacco: Never Assessed Comments Unknown Sex and Gender Information Value Date Recorded Sex Assigned at Female 12/11/2024 3:31 PM CLOTH PICKER Legal Sex Female 7:02 PM CLOTH PICKER Gender Identity Male 12/11/2024 3:31 PM CLOTH PICKER Sexual Orientation Not on file documented as of this encounter Plan of Treatment Not on file documented as of this encounter Visit Diagnoses Not on filedocumented in this encounter Care Teams Cte Teacher Relationship Specialty Start Date End Date Pcp, Other Patient has a PCP, but uncertain who PCP - General 12/11/24 Cecile Pascual P.A. [address] [place] [address] Referring Provider Internal Medicine 12/11/24 documented as of this encounter
--- OUTSIDE RECORDS SUMMARY | 2024-12-13 14:32 | XMS_ITS | Encounter Summary ---
Author Organization [facility] Address [address] [place] [address] Care Team Providers Care Horticultural Specialty Grower Field Name Role Phone Pcp, Other Primary Care Provider Unavailabl e Cecile Pascual Unavailable [phone] Encounter Details Date Type Department Care Team (Late st Contact Info) Description 03/09/2022 [place] Historical EDM Scans [place] - Conversion Department - [facility] Medicine ProviderAmberly Historical Social History Tobacco Use Types Packs/Day Years Used Date Smoking Tobacco: Never Assessed Comments Unknown Sex and Gender Information Value Date Recorded Sex Assigned at Female 12/11/2024 3:31 PM MARKET DEVELOPMENT SPECIALIST Legal Sex Female 7:02 PM MARKET DEVELOPMENT SPECIALIST Gender Identity Male 12/11/2024 3:31 PM MARKET DEVELOPMENT SPECIALIST Sexual Orientation Not on file documented as of this encounter Plan of Treatment Not on file documented as of this encounter Visit Diagnoses Not on filedocumented in this encounter Care Teams Horticultural Specialty Grower Field Relationship Specialty Start Date End Date Pcp, Other Patient has a PCP, but uncertain who PCP - General 12/11/24 Cecile Pascual P.A. [address] [place] [address] Referring Provider Internal Medicine 12/11/24 documented as of this encounter
--- OUTSIDE RECORDS SUMMARY | 2024-12-13 14:32 | XMS_ITS | Encounter Summary ---
Author Organization [facility] Address [address] [place] [address] Care Team Providers Care Pattern Keeper Name Role Phone Pcp, Other Primary Care Provider Unavailabl e Cecile Pascual Unavailable [phone] Encounter Details Date Type Department Care Team (Late st Contact Info) Description 10/30/2018 [place] Historical EDM Scans [place] - Conversion Department - [facility] Medicine ProviderAmberly Historical Social History Tobacco Use Types Packs/Day Years Used Date Smoking Tobacco: Never Assessed Comments Unknown Sex and Gender Information Value Date Recorded Sex Assigned at Female 12/11/2024 3:31 PM SHIP SURVEYOR Legal Sex Female 7:02 PM SHIP SURVEYOR Gender Identity Male 12/11/2024 3:31 PM SHIP SURVEYOR Sexual Orientation Not on file documented as of this encounter Plan of Treatment Not on file documented as of this encounter Visit Diagnoses Not on filedocumented in this encounter Care Teams Pattern Keeper Relationship Specialty Start Date End Date Pcp, Other Patient has a PCP, but uncertain who PCP - General 12/11/24 Cecile Pascual P.A. [address] [place] [address] Referring Provider Internal Medicine 12/11/24 documented as of this encounter
--- OUTSIDE RECORDS SUMMARY | 2024-12-13 14:32 | XMS_ITS | Encounter Summary ---
Author Organization [facility] Address [address] [place] [address] Care Team Providers Care Accounting Reconciliation Clerk Name Role Phone Pcp, Other Primary Care Provider Unavailabl e Cecile Pascual Unavailable Encounter Details Date Type Department Care Team (Late st Contact Info) Description 10/18/2018 [place] Historical EDM Scans [place] - Conversion Department - [facility] Medicine Provider, [place] Historical Social History Tobacco Use Types Packs/Day Years Used Date Smoking Tobacco: Never Assessed Comments Unknown Sex and Gender Information Value Date Recorded Sex Assigned at Female 12/11/2024 3:31 PM PEDIATRIC CRITICAL CARE NURSE Legal Sex Female 7:02 PM PEDIATRIC CRITICAL CARE NURSE Gender Identity Male 12/11/2024 3:31 PM PEDIATRIC CRITICAL CARE NURSE Sexual Orientation Not on file documented as [...] filedocumented in this encounter Care Teams Accounting Reconciliation Clerk Relationship Specialty Start Date End Date Pcp, Other Patient has a PCP, but uncertain who PCP - General 12/11/24 Cecile Pascual P.A. [address] [place] [address] Referring Provider Internal Medicine 12/11/24 documented as of this encounter
--- OUTSIDE RECORDS SUMMARY | 2024-12-13 14:32 | XMS_ITS | Encounter Summary ---
Author Organization [facility] Address [address] [place] [address] Care Team Providers Care Instructional Technology Coach Name Role Phone Pcp, Other Primary Care Provider Unavailabl e Cecile Pascual Unavailable [phone] Encounter Details Date Type Department Care Team (Late st Contact Info) Description 04/22/2022 Amber[place] Historical EDM Scans [employer] - Conversion Department - [facility] Medicine ProviderAmberly Historical Social History Tobacco Use Types Packs/Day Years Used Date Smoking Tobacco: Never Assessed Comments Unknown Sex and Gender Information Value Date Recorded Sex Assigned at Female 12/11/2024 3:31 PM BOILING HOUSE HAND Legal Sex Female 7:02 PM BOILING HOUSE HAND Gender Identity Male 12/11/2024 3:31 PM BOILING HOUSE HAND Sexual Orientation Not on file documented as of this encounter Plan of Treatment Not on file documented as of this encounter Visit Diagnoses Not on filedocumented in this encounter Care Teams Instructional Technology Coach Relationship Specialty Start Date End Date Pcp, Other Patient has a PCP, but uncertain who PCP - General 12/11/24 Cecile Pascual P.A. [address] [place] [address] Referring Provider Internal Medicine 12/11/24 documented as of this encounter
--- OUTSIDE RECORDS SUMMARY | 2024-12-13 14:32 | XMS_ITS | Encounter Summary ---
Author Organization [facility] Address [address] [place] [address] Care Team Providers Care Care Aid Name Role Phone Pcp, Other Primary Care Provider Unavailabl e Cecile Pascual Unavailable [phone] Encounter Details Date Type Department Care Team (Late st Contact Info) Description 03/08/2022 [place] Historical EDM Scans [place] - Conversion Department - [facility] Medicine ProviderAmberly Historical Social History Tobacco Use Types Packs/Day Years Used Date Smoking Tobacco: Never Assessed Comments Unknown Sex and Gender Information Value Date Recorded Sex Assigned at Female 12/11/2024 3:31 PM RN L AND D Legal Sex Female 7:02 PM RN L AND D Gender Identity Male 12/11/2024 3:31 PM RN L AND D Sexual Orientation Not on file documented as of this encounter Plan of Treatment Not on file documented as of this encounter Visit Diagnoses Not on filedocumented in this encounter Care Teams Care Aid Relationship Specialty Start Date End Date Pcp, Other Patient has a PCP, but uncertain who PCP - General 12/11/24 Cecile Pascual P.A. [address] [place] [address] Referring Provider Internal Medicine 12/11/24 documented as of this encounter
--- OUTSIDE RECORDS SUMMARY | 2024-12-13 14:32 | XMS_ITS | Encounter Summary ---
Author Organization [facility] Address [address] [place] [address] Care Team Providers Care Surgical Sales Representative Name Role Phone Pcp, Other Primary Care Provider Unavailabl e Cceile Pascual Unavailable [phone] Encounter Details Date Type Department Care Team (Late st Contact Info) Description 03/09/2022 [place] Historical EDM Scans [place] - Conversion Department - [facility] Medicine ProviderAmberly Historical Social History Tobacco Use Types Packs/Day Years Used Date Smoking Tobacco: Never Assessed Comments Unknown Sex and Gender Information Value Date Recorded Sex Assigned at Female 12/11/2024 3:31 PM MANAGER OF CORPORATE COMMUNICATIONS Legal Sex Female 7:02 PM MANAGER OF CORPORATE COMMUNICATIONS Gender Identity Male 12/11/2024 3:31 PM MANAGER OF CORPORATE COMMUNICATIONS Sexual Orientation Not on file documented as of this encounter Plan of Treatment Not on file documented as of this encounter Visit Diagnoses Not on filedocumented in this encounter Care Teams Surgical Sales Representative Relationship Specialty Start Date End Date Pcp, Other Patient has a PCP, but uncertain who PCP - General 12/11/24 Cecile Pascual P.A. [address] [place] [address] Referring Provider Internal Medicine 12/11/24 documented as of this encounter
--- OUTSIDE RECORDS SUMMARY | 2024-12-13 14:32 | XMS_ITS | Encounter Summary ---
Author Organization [facility] Address [address] [address] Care Team Providers Care Quality Control Director Name Role Phone Pcp, Other Primary Care Provider Cecile Díaz Unavailable [phone] Encounter Details Date Type Department Care Team (Late st Contact Info) Description 09/11/2017 Amberly Historical EDM Scans [place] - Conversion Department - [facility] Medicine Provider, Amberly Mena Social History Tobacco Use Types Packs/Day Years Used Date Smoking Tobacco: Never Assessed Comments Unknown Sex and Gender Information Value Date Recorded Sex Assigned at Female 12/11/2024 3:31 PM SCADA OPERATOR Legal Sex Female 7:02 PM SCADA OPERATOR Gender Identity Male 12/11/2024 3:31 PM SCADA OPERATOR Sexual Orientation Not on file documented [...] Narrative 09/11/2017 Ordered by an unspecified provider. [place] Historical Provider SCANNED EXTERNAL RES ULT Final Result documented in this encounter Visit Diagnoses Not on filedocumented in this encounter Care Teams Quality Control Director Relationship Specialty Start Date End Date Pcp, Other Patient has a PCP, but uncertain who PCP - General 12/11/24 Cecile Pascual P.A. [address] [place] [address] Referring Provider Internal Medicine 12/11/24 documented as of this encounter
--- OUTSIDE RECORDS SUMMARY | 2024-12-13 14:32 | XMS_ITS | Encounter Summary ---
Author Organization [facility] Address [address] [place] [address] Care Team Providers Care Government Affairs Manager Name Role Phone Pcp, Other Primary Care Provider Unavailabl e Cecile Pascual Unavailable [phone] Encounter Details Date Type Department Care Team (Late st Contact Info) Description 12/05/2018 Amberly Historical EDM Scans [place] - Conversion Department - [facility] Medicine Provider, Amberly Historical Social History Tobacco Use Types Packs/Day Years Used Date Smoking Tobacco: Never Assessed Comments Unknown Sex and Gender Information Value Date Recorded Sex Assigned at Female 12/11/2024 3:31 PM LEAD DATABASE DEVELOPER Legal Sex Female 7:02 PM LEAD DATABASE DEVELOPER Gender Identity Male 12/11/2024 3:31 PM LEAD DATABASE DEVELOPER Sexual Orientation Not on file documented as [...] on filedocumented in this encounter Care Teams Government Affairs Manager Relationship Specialty Start Date End Date Pcp, Other Patient has a PCP, but uncertain who PCP - General 12/11/24 Cecile Pascual P.A. [address] [place] [address] Referring Provider Internal Medicine 12/11/24 documented as of this encounter
--- OUTSIDE RECORDS SUMMARY | 2024-12-13 14:32 | XMS_ITS | Encounter Summary ---
Author Organization [facility] Address [address] [place] [address] Care Team Providers Care Respiratory Scientist Name Role Phone Pcp, Other Primary Care Provider Unavailabl e Cecile Pascual Unavailable [phone] Encounter Details Date Type Department Care Team (Late st Contact Info) Description 02/11/2020 [place] Historical EDM Scans [place] - Conversion Department - [facility] Medicine Provider, Amberly Historical Social History Tobacco Use Types Packs/Day Years Used Date Smoking Tobacco: Never Assessed Comments Unknown Sex and Gender Information Value Date Recorded Sex Assigned at Female 12/11/2024 3:31 PM PROOFER Legal Sex Female 7:02 PM PROOFER Gender Identity Male 12/11/2024 3:31 PM PROOFER Sexual Orientation Not on file documented as [...] on filedocumented in this encounter Care Teams Respiratory Scientist Relationship Specialty Start Date End Date Pcp, Other Patient has a PCP, but uncertain who PCP - General 12/11/24 Cecile Pascual P.A. [address] [place] [address] Referring Provider Internal Medicine 12/11/24 documented as of this encounter
--- OUTSIDE RECORDS SUMMARY | 2024-12-13 14:32 | XMS_ITS | Encounter Summary ---
Author Organization [facility] Address [address] [place] [address] Care Team Providers Care Shuttle Final Inspector Name Role Phone Pcp, Other Primary Care Provider Unavailabl e Cecile Pascual Unavailable [phone] Encounter Details Date Type Department Care Team (Late st Contact Info) Description 06/14/2020 [place] Historical EDM Scans [place] - Conversion Department - [facility] Medicine ProviderAmberly Historical Social History Tobacco Use Types Packs/Day Years Used Date Smoking Tobacco: Never Assessed Comments Unknown Sex and Gender Information Value Date Recorded Sex Assigned at Female 12/11/2024 3:31 PM TIRE SHOP MANAGER Legal Sex Female 7:02 PM TIRE SHOP MANAGER Gender Identity Male 12/11/2024 3:31 PM TIRE SHOP MANAGER Sexual Orientation Not on file documented as of this encounter Plan of Treatment Not on file documented as of this encounter Visit Diagnoses Not on filedocumented in this encounter Care Teams Shuttle Final Inspector Relationship Specialty Start Date End Date Pcp, Other Patient has a PCP, but uncertain who PCP - General 12/11/24 Cecile Pascual P.A. [address] [place] [address] Referring Provider Internal Medicine 12/11/24 documented as of this encounter
--- OUTSIDE RECORDS SUMMARY | 2024-12-13 14:32 | XMS_ITS | Encounter Summary ---
Author Organization [facility] Address [address] [place] [address] Care Team Providers Care Building Rental Superintendent Name Role Phone Pcp, Other Primary Care Provider Unavailabl e Cecile Pascual Unavailable [phone] Encounter Details Date Type Department Care Team (Late st Contact Info) Description 03/09/2022 [place] Historical EDM Scans [place] - Conversion Department - [facility] Medicine ProviderAmberly Historical Social History Tobacco Use Types Packs/Day Years Used Date Smoking Tobacco: Never Assessed Comments Unknown Sex and Gender Information Value Date Recorded Sex Assigned at Female 12/11/2024 3:31 PM ELECTRONIC SECURITY SPECIALIST Legal Sex Female 7:02 PM ELECTRONIC SECURITY SPECIALIST Gender Identity Male 12/11/2024 3:31 PM ELECTRONIC SECURITY SPECIALIST Sexual Orientation Not on file documented as of this encounter Plan of Treatment Not on file documented as of this encounter Visit Diagnoses Not on filedocumented in this encounter Care Teams Building Rental Superintendent Relationship Specialty Start Date End Date Pcp, Other Patient has a PCP, but uncertain who PCP - General 12/11/24 Cecile Pascual P.A. [address] [place] [address] Referring Provider Internal Medicine 12/11/24 documented as of this encounter
--- OUTSIDE RECORDS SUMMARY | 2024-12-13 14:32 | XMS_ITS | Encounter Summary ---
Author Organization [facility] Address [address] [address] Care Team Providers Care Set Up Technician Name Role Phone Pcp, Other Primary Care Provider Cecile Díaz Unavailable [phone] Encounter Details Date Type Department Care Team (Late st Contact Info) Description 08/03/2017 Amber[place] Historical EDM Scans [place] - Conversion Department - [facility] Medicine Provider, Amberly Mena Social History Tobacco Use Types Packs/Day Years Used Date Smoking Tobacco: Never Assessed Comments Unknown Sex and Gender Information Value Date Recorded Sex Assigned at Female 12/11/2024 3:31 PM RABBET OPERATOR Legal Sex Female 7:02 PM RABBET OPERATOR Gender Identity Male 12/11/2024 3:31 PM RABBET OPERATOR Sexual Orientation Not on file documented [...] Narrative 08/03/2017 Ordered by an unspecified provider. [place] Historical Provider SCANNED EXTERNAL RES ULT Final Result documented in this encounter Visit Diagnoses Not on filedocumented in this encounter Care Teams Set Up Technician Relationship Specialty Start Date End Date Pcp, Other Patient has a PCP, but uncertain who PCP - General 12/11/24 Cecile Pascual P.A. [address] [place] [address] Referring Provider Internal Medicine 12/11/24 documented as of this encounter
--- OUTSIDE RECORDS SUMMARY | 2024-12-13 14:32 | XMS_ITS | Encounter Summary ---
Author Organization [facility] Address [address] [place] [address] Care Team Providers Care Director Of Distribution Name Role Phone Pcp, Other Primary Care Provider Unavailabl e Cecile Pascual Unavailable [phone] Encounter Details Date Type Department Care Team (Late st Contact Info) Description 03/08/2022 [place] Historical EDM Scans [place] - Conversion Department - [facility] Medicine ProviderAmberly Historical Social History Tobacco Use Types Packs/Day Years Used Date Smoking Tobacco: Never Assessed Comments Unknown Sex and Gender Information Value Date Recorded Sex Assigned at Female 12/11/2024 3:31 PM ACADEMIC SUPPORT SPECIALIST Legal Sex Female 7:02 PM ACADEMIC SUPPORT SPECIALIST Gender Identity Male 12/11/2024 3:31 PM ACADEMIC SUPPORT SPECIALIST Sexual Orientation Not on file documented as of this encounter Plan of Treatment Not on file documented as of this encounter Visit Diagnoses Not on filedocumented in this encounter Care Teams Director Of Distribution Relationship Specialty Start Date End Date Pcp, Other Patient has a PCP, but uncertain who PCP - General 12/11/24 Cecile Pascual P.A. [address] [place] [address] Referring Provider Internal Medicine 12/11/24 documented as of this encounter
--- OUTSIDE RECORDS SUMMARY | 2024-12-13 14:32 | XMS_ITS | Encounter Summary ---
Author Organization [facility] Address [address] [address] Care Team Providers Care Warranty Manager Name Role Phone Pcp, Other Primary Care Provider Cecile Díaz Unavailable [phone] Encounter Details Date Type Department Care Team (Late st Contact Info) Description 08/21/2018 Amberly Historical EDM Scans [place] - Conversion Department - [facility] Medicine Provider, Amberly Historical Social History Tobacco Use Types Packs/Day Years Used Date Smoking Tobacco: Never Assessed Comments Unknown Sex and Gender Information Value Date Recorded Sex Assigned at Female 12/11/2024 3:31 PM MANAGER URGENT CARE Legal Sex Female 7:02 PM MANAGER URGENT CARE Gender Identity Male 12/11/2024 3:31 PM MANAGER URGENT CARE Sexual Orientation Not on file documented as of this encounter Plan of Treatment Not on file documented as of this encounter Procedures Procedure Name Priority Date/Time Associated Diagnosis Comments RADIOLOGY SCAN 08/21/2018 LABS SCAN 08/21/2018 LABS SCAN 08/21/2018 documented in this encounter Results * LABS SCAN (08/21/2018) Narrative 08/21/2018 Ordered by an unspecified provider. [facility] Provider SCANNED EXTERNAL RES ULT Final Result * LABS SCAN (08/21/2018) Narrative 08/21/2018 Ordered by an unspecified provider. [facility] Provider SCANNED EXTERNAL RES ULT Final Result * RADIOLOGY SCAN (08/21/2018) Anatomical Region Laterality Modality Other Narrative 08/21/2018 Ordered by an unspecified provider. [place] Historical Provider SCANNED EXTERNAL RES ULT Final Result documented in this encounter Visit Diagnoses Not on filedocumented in this encounter Care Teams Warranty Manager Relationship Specialty Start Date End Date Pcp, Other Patient has a PCP, but uncertain who PCP - General 12/11/24 Cecile Pascual P.A. [address] [place] [address] Referring Provider Internal Medicine 12/11/24 documented as of this encounter
== END 2024-12-13 14:13 | disposition home or self-care (01) ==
PROVIDERS: Emergency Medicine; Emergency Provider Student in an Organized Health Care Education/Training Program
DX: J10.1 Influenza due to other identified influenza virus with other respiratory manifestations (principal); Z20.822 Contact with and (suspected) exposure to COVID-19
CPT/HCPCS: 87637; 99283